=== PATIENT | female | born 1955 | race American Indian/Alaskan Native ===

== ENCOUNTER 2016-12-04 06:37 | Day surgery (SDC) | payer OTHER ==
--- NOTE | 2016-12-04 07:54 | Anesthesia Day of Surgery ---
Anesthesia Day of Surgery - Day of Surgery Patient Examined: Yes Patient H&P Reviewed: Yes Patient is NPO: Yes
--- NOTE | 2016-12-04 07:54 | Anesthesia Consultation ---
Anesthesia Consult and Med Hx Date of service: 12/04/16 - Airway Anesthetic Teeth Evaluation: Good (missing 2 molars on top, 1 on bottom) ROM Head & Neck: Adequate Mental/Hyoid Distance: Adequate Mallampati Class: Class III Intubation Access Assessment: Possibly Difficult - Pulmonary Exam CTA: Yes - Cardiac Exam Cardiac Exam: RRR - Pre-Operative Health Status ASA Pre-Surgery Classification: ASA3 Proposed Anesthetic Plan: MAC - Pulmonary Hx Smoking: Yes (Quit 5 years ago) Hx Asthma: Yes (has cough, states it is from a scratchy throat and that lungs feel fine) COPD: No Hx Pneumonia: No Hx Sleep Apnea: Yes (states diagnosed 3 months ago, never got a cpap/bipap) - Cardiovascular System Hx Hypertension: Yes - Central Nervous System Hx Psychiatric Problems: Yes (schizophrenia) - Gastrointestinal Hx Gastroesophageal Reflux Disease: Yes - Endocrine Hx End Stage Renal Disease: No Hx Non-Insulin Dependent Diabetes: No - Other Systems Hx Alcohol Use: No Hx Substance Use: No Hx Cancer: No Hx Obesity: Yes
[2016-12-04] MEDS ORDERED: NACL 0.9% 1000 ML 1,000 ML IV SCH (08:00)
[2016-12-04] MEDS ORDERED: PROVENTIL IH NR (08:15)
--- NOTE | 2016-12-04 10:00 | Post Anesthesia Evaluation ---
- Post Anesthesia Evaluation Patient Participated: Yes Airway Patent: Yes Stable Respiratory Function: Yes Nausea/Vomiting: No Temp > 96.8F: Yes Pain Manageable: Yes Adequeate Hydration: Yes Anesthesia Complications: No
[2016-12-04] MEDS ORDERED: DIPRIVAN 10 MG/ML IV ONE ×3 (10:49→11:13)
[2016-12-04 11:58] VITALS: BP 137/89
--- NOTE | 2016-12-12 09:42 | Operative Report ---
Operative Report Operative Report: Date of procedure: 12/04/2016 Procedure: Colonoscopy. Attending physician: Cristobal Alberts MD Pipeline Systems Operator: Cristobal Alberts MD Indication: Patient is a 61-year-old female who presents for colorectal cancer screening. A colonoscopy is done to evaluate patient so that treatment may be directed based on the findings. Consent: Informed consent was obtained after advising the patient and family regarding nature of this procedure, its indications, potential benefits as well as possible complications including but not limited to bleeding perforation and adverse reaction to medication, infection as well as other cardiopulmonary complications. An informed written and verbal consent was then obtained after due opportunity was provided for questions and answers. Monitoring: Patient was monitored continuously with pulse oximetry and electrocardiographic recordings as well as blood pressure recordings. Vital signs remained stable throughout this procedure with no untoward events. Preoperative assessment: Patient was assessed immediately prior to this procedure for capacity to tolerate monitored anesthesia care and moderate sedation as well as general anesthesia. Patient's ASA classification is 2, Mallampati class is 2, Hyomental distance is 3. Instrument: Fujinon videocolonoscope Medications: Propofol given intravenously in divided doses. For details please refer to anesthesia records. Description of procedure: Patient was placed in the left lateral decubitus position after achieving sedation, a digital rectal examination was performed following which the colonoscope was introduced into the anal verge and advanced to the cecum which was identified by the cecal valve, the appendiceal orifice, as well as by the cecal strap and direct transillumination. The colonoscope was subsequently withdrawn with careful inspection of all mucosal surfaces. Patient tolerated this procedure well and was subsequently taken to the recovery room. The following findings were noted. Findings: Patient had mild diverticulosis of the sigmoid and the descending colon. The rest of the colon to the cecum was normal. On the retroflex view at the anal verge, patient had internal hemorrhoids. Impression: Internal hemorrhoids, otherwise normal colonoscopy. Plan: High-fiber diet. Repeat colonoscopy in 10 years.
== END 2016-12-04 06:38 | disposition home or self-care (01) ==
LOC: GIO 06:37
PROVIDERS: ATTEND Internal Medicine Gastroenterology
DX: Z12.11 Encounter for screening for malignant neoplasm of colon (principal); K57.30 Diverticulosis of large intestine without perforation or abscess without bleeding; K64.8 Other hemorrhoids; F41.9 Anxiety disorder, unspecified; F32.9 Major depressive disorder, single episode, unspecified; I10 Essential (primary) hypertension; F20.9 Schizophrenia, unspecified; K21.9 Gastro-esophageal reflux disease without esophagitis; G47.33 Obstructive sleep apnea (adult) (pediatric); J45.909 Unspecified asthma, uncomplicated; E66.01 Morbid (severe) obesity due to excess calories; Z68.36 Body mass index [BMI] 36.0-36.9, adult; Z90.710 Acquired absence of both cervix and uterus; Z98.51 Tubal ligation status; Z87.891 Personal history of nicotine dependence; Z79.899 Other long term (current) drug therapy; Z88.0 Allergy status to penicillin; Z91.041 Radiographic dye allergy status
CPT/HCPCS: 45378; J2704; J7030

== ENCOUNTER 2017-03-27 18:18 | Emergency (ER) | payer OTHER ==
[2017-03-27] MEDS ORDERED: MORPHINE IV ONE (20:10)
--- NOTE | 2017-03-27 20:13 | Emergency Department Report ---
Chief Complaint: Chest Pain Stated Complaint: CHEST PAIN Time Seen by Provider: 03/27/17 19:44 - HPI History of Present Illness: Patient is a 61-year-old Egyptian female who has past medical history of approximately 2 months of cough with gagging. Patient has seen her heart doctor personal computer specialist she has a working diagnosis of COPD at this time but is still being evaluated with echocardiograms and and stress tests. Patient's brought her in today because she is having pain with her cough. Patient states that she has coughed daily which is uncontrollable despite meds. Patient has no fever and the cough is nonproductive there is anterior chest pain on palpation. Patient has no nausea vomiting diarrhea - ROS Review of Systems: Review of systems negative except for those systems in the HPI - Exam Vital Signs: Vital Signs 03/27/17 18:29 Temperature 97.6 F Pulse Rate 110 H Respiratory 24 Rate Blood Pressure 142/70 O2 Sat by Pulse 99 Oximetry Physical Exam: Focused physical exam patient is alert and oriented 3 in moderate distress secondary to pain and shortness of breath. HEENT oropharynx is clear sinuses are nontender eyes pupils equal round and reactive to light lungs are clear to auscultation bilaterally however the patient is slightly tachypneic heart S1-S2 no murmurs gallops or rubs mild tachycardia abdomen is soft nontender nondistended neuro exams extremities spontaneously with no sensory deficit no rash or any appearance of rashes that appear like zoster MSE screening note: Focused history and physical exam performed. Due to findings the following was ordered: Had discussion with the patient and her regarding the fact that this is a chronic condition and the diagnosis may not be found here in the emergency department. Patient and her stated they feel as though they have not gotten any answers from doctors. Patient has a working diagnosis was COPD despite the fact she is not wheezing. Patient will undergo troponin and BNP D dimer is basic labs chest x-ray to rule out any emergent condition ED Medical Decision Making - EKG Data When compared to previous EKG there are: other Interpretation: other 03/27/17 20:14 Patient's EKG shows sinus tachycardia 109 normal axis normal intervals no ST segment changes interpretation is there is no STEMI mild tachycardia ED Disposition for MSE Condition: Stable Referrals: NISHI ALICEA MD [Primary Care Provider] - 3-5 Days
[2017-03-27 20:44] LABS: Basophils % (Auto) 0.3 % (0.0-1.8); Eosinophils % (Auto) 0.1 % (0.0-4.3); Hematocrit 37.9 % (30.3-42.9); Hemoglobin 12.3 gm/dl (10.1-14.3); Mean Corpuscular HGB Conc 33 % (30-34); Mean Corpuscular Volume 79 fl (79-97); Platelet Count 278 K/mm3 (140-440); Red Cell Distribution Width 15.7 % (13.2-15.2); White Blood Count 10.1 K/mm3 (4.5-11.0)
[2017-03-27 20:45] LABS: Mean Corpuscular Hemoglobin 26 pg (28-32)
--- NOTE | 2017-03-27 21:12 | XRay Report ---
FINAL REPORT EXAM: XR CHEST ROUTINE 2V HISTORY: Chest Pain TECHNIQUE: Two views of the chest Comparison: 09/13/2016 FINDINGS: Normal heart size. Lungs are clear and well expanded without focal infiltrate or consolidation. There are no discrete pleural effusions. There is mild prominence of the interstitium unchanged from the previous. Imaged axial skeleton is unremarkable. There is mild levoscoliosis thoracic spine. IMPRESSION: No acute cardiopulmonary disease.
[2017-03-27 21:35] LABS: Anion Gap 20 mmol/L; BUN/Creatinine Ratio 12; Blood Urea Nitrogen 13 mg/dL (7-17); Calcium 9.6 mg/dL (8.4-10.2); Carbon Dioxide 24 mmol/L (22-30); Chloride 97.9 mmol/L (98-107); Glucose 104 mg/dL (65-100); Sodium 138 mmol/L (137-145)
--- NOTE | 2017-03-27 21:56 | Emergency Department Report ---
HPI - General Chief Complaint: Chest Pain Time Seen by Provider: 03/27/17 19:44 - HPI HPI: Patient is a 61-year-old Maltese female who has past medical history of approximately 2 months of cough with gagging. 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 Patient's brought her in today because she is having pain with her cough. Patient states that she has coughed daily which is uncontrollable despite meds. Patient has no fever and the cough is nonproductive there is anterior chest pain on palpation. Patient has no nausea vomiting diarrhea. She says she is taking [id number] cough and cold medication without any relief. She reports chest pain with cough and is 4-10. No chest pain without coughing. Patient is on Advair for COPD. She also has rescue inhaler. Pain is located to midsternal area with coughing and feels sore. Patient has no diagnosis of heart disease. She has a history of anxiety and appendectomy. COPD, asthma and arthritis. ED Past Medical Hx - Past Medical History Previous Medical History?: Yes Hx Hypertension: Yes Hx Congestive Heart Failure: No Hx Diabetes: No Hx Arthritis: Yes Hx Headaches / Migraines: Yes Hx Psychiatric Treatment: Yes (anxiety, been at [facility]) Hx Asthma: Yes (has cough, states it is from a scratchy throat and that lungs feel fine) Hx COPD: Yes Hx HIV: No Additional medical history: anxiety - Surgical History Past Surgical History?: Yes Hx Appendectomy: Yes Additional Surgical History: Hysterectomy - Family History Family history: hypertension - Social History Smoking Status: Former Smoker Substance Use Type: None Other Social History: Lives with her - Medications Home Medications: Home Medications Medication Instructions Recorded Confirmed Last Taken Type Hydrochlorothiazide [HCTZ] 25 mg PO QDAY 01/09/14 09/13/16 12/03/16 History Loratadine [Claritin] 10 mg PO QDAY 01/31/14 09/13/16 12/03/16 History Montelukast [Singulair] 10 mg PO QHS #30 tablet 02/04/14 09/13/16 12/03/16 Rx Albuterol Sulfate [Ventolin HFA] 2 puff IH Q4H PRN 01/10/15 09/13/16 01/10/15 14 :40 History Meclizine [Antivert] 50 mg PO BID 01/10/15 09/13/16 12/03/16 History Omeprazole [PriLOSEC] 20 mg PO QDAY 01/10/15 09/13/16 12/03/16 History PARoxetine [Paxil] 20 mg PO DAILY 01/10/15 09/13/16 12/03/16 History Simvastatin [Zocor TAB] 40 mg PO QHS 01/10/15 09/13/16 12/03/16 History Ammonium Lactate/Emu Oil 1 tube PERCUTANEO BID 09/13/16 09/13/16 Unknown History Fluticasone Propionate 1 spray INNOSTRIL DAILY 09/13/16 09/13/16 12/03/16 History Gabapentin 100 mg TID PRN 09/13/16 09/13/16 12/03/16 History Lisinopril [Zestril TAB] 20 mg PO QDAY 09/13/16 09/13/16 12/03/16 History Ciprofloxacin HCl [Ciprofloxacin 500 mg PO Q12HR 3 Days tab 09/14/16 Unknown Rx TAB] Divalproex Dr [Depakote Dr] 500 mg PO BID #1 tablet 09/14/16 12/03/16 Rx Furosemide [Lasix TAB] 20 mg PO QDAY #1 tablet 09/14/16 12/03/16 Rx Nortriptyline [Pamelor] 25 mg PO QDAY #1 capsule 09/14/16 12/03/16 Rx risperiDONE [RisperDAL] 0.5 mg PO BID #1 tablet 09/14/16 12/03/16 Rx ED Review of Systems ROS: Stated complaint: CHEST PAIN Other details as noted in HPI Comment: All other systems reviewed and negative Constitutional: no symptoms reported Eyes: denies: vision change ENT: denies: ear pain, throat pain, congestion Respiratory: cough, shortness of breath, SOB with exertion (shortness of breath only with cough and). denies: orthopnea, SOB at rest, stridor, wheezing Cardiovascular: chest pain (with cough and). denies: palpitations, dyspnea on exertion, orthopnea, edema, syncope, paroxysmal nocturnal dyspnea Gastrointestinal: vomiting (with coughing). denies: abdominal pain, nausea, diarrhea, constipation, hematemesis, melena, hematochezia Genitourinary: denies: dysuria, frequency Musculoskeletal: denies: back pain, joint swelling, arthralgia, myalgia Skin: denies: rash Neurological: denies: headache, weakness, numbness, paresthesias, confusion, abnormal gait, vertigo Physical Exam - Physical Exam Vital Signs: Vital Signs 03/27/17 03/27/17 03/27/17 18:29 20:19 20:49 Temperature 97.6 F Pulse Rate 110 H Respiratory 24 18 18 Rate Blood Pressure 142/70 O2 Sat by Pulse 99 Oximetry Vital Signs 03/27/17 03/27/17 03/27/17 18:29 20:19 20:49 Temperature 97.6 F Pulse Rate 110 H Respiratory 24 18 18 Rate Blood Pressure 142/70 Blood Pressure [Left] O2 Sat by Pulse 99 Oximetry 03/28/17 00:07 Temperature 98.4 F Pulse Rate 87 Respiratory 17 Rate Blood Pressure Blood Pressure 127/84 [Left] O2 Sat by Pulse 97 Oximetry General: This is a 61-year-old female well-nourished well-developed in no acute distress. She is nontoxic in appearance Physical Exam: Head: Normocephalic, atraumatic Eyes: Biateral pupils equal and reactive to light, bilateral EOM intact.. Bilateral conjunctival and sclera without injection, normal accommodation. No nystagmus Neck: Supple, No Cervical adenopathy, full range of motion and no C-spine tenderness. No swelling or tracheal deviation normal reflexes Mouth: Moist, no trismus, no pharyngeal exudate or erythema. Oral airways patent and uvula is midline Ears: Bilateral TM normal exam, bilateral EAC normal exam. Cardiovascular: S1, S2. Tachycardic at 110 ,reg rhythm. No murmur. Capillary refill is less then 3 seconds. Lungs: Clear to auscultate bilaterally. No rhonchi, wheezes or rales. Slightly diminished lung sounds throughout lung anthony suspect from COPD. Positive chest wall tenderness, mid. No chest contusion. No bruising to chest. MSK: Strength 5/5 in all extremities. No joint deformity or crepitus. Normal inspection. Full range of motion to all extremities. A clubbing, cyanosis or edema. +2 pulses to all extremities. No neurovascular compromise. Abdomen: Non-tender to palpate in all quadrants, no guarding or rebound tenderness, positive bowel sounds in all quadrants. No CVA tenderness. No hernia, bruit or mass. No rigidity or distention. Skin: Clean, dry and intact. No rash or lesions. Neurological: GCS at 15, Pt is alert and oriented 3 speech is clear period. No focal neurological deficit . Normal gait. Normal Reflexes. No motor or sensory deficit Back: No vertebral tenderness, no paraspinal tenderness. Full range of motion and normal inspection. Ambulates without any difficulties. Psych: Normal mood and behavior ED Course Vital Signs 03/27/17 03/27/17 03/27/17 18:29 20:19 20:49 Temperature 97.6 F Pulse Rate 110 H Respiratory 24 18 18 Rate Blood Pressure 142/70 O2 Sat by Pulse 99 Oximetry Vital Signs 03/27/17 03/27/17 03/27/17 18:29 20:19 20:49 Temperature 97.6 F Pulse Rate 110 H Respiratory 24 18 18 Rate Blood Pressure 142/70 Blood Pressure [Left] O2 Sat by Pulse 99 Oximetry 03/28/17 00:07 Temperature 98.4 F Pulse Rate 87 Respiratory 17 Rate Blood Pressure Blood Pressure 127/84 [Left] O2 Sat by Pulse 97 Oximetry - Reevaluation(s) Reevaluation #1: 03/27/17 23:10 Patient stable and awaiting in lab, CTA results. Pain control with morphine. She is not having any chest pain at present. Reevaluation #2: 03/28/17 00:14 Patient received morphine 4 mg IV and emergency room. Pain has been stable. ED Medical Decision Making - Lab Data Result diagrams: 03/27/17 20:30 03/27/17 20:30 Lab Results 03/27/17 03/27/17 03/27/17 Range/Units 20:30 20:30 20:30 WBC 10.1 (4.5-11.0) K/mm3 RBC 4.80 (3.65-5.03) M/mm3 Hgb 12.3 (10.1-14.3) gm/dl Hct 37.9 (30.3-42.9) % MCV 79 (79-97) fl MCH 26 L (28-32) pg MCHC 33 (30-34) % RDW 15.7 H (13.2-15.2) % Plt Count 278 (140-440) K/mm3 Lymph % (Auto) 19.9 (13.4-35.0) % [place] % (Auto) 7.9 H (0.0-7.3) % Eos % (Auto) 0.1 (0.0-4.3) % Baso % (Auto) 0.3 (0.0-1.8) % Lymph # 2.0 (1.2-5.4) K/mm3 [place] # 0.8 (0.0-0.8) K/mm3 Eos # 0.0 (0.0-0.4) K/mm3 Baso # 0.0 (0.0-0.1) K/mm3 Seg Neutrophils % 71.8 H (40.0-70.0) % Seg Neutrophils # 7.3 (1.8-7.7) K/mm3 D-Dimer 720.04 H (0-234) ng/mlDDU Sodium 138 (137-145) mmol/L Potassium 4.0 (3.6-5.0) mmol/L Chloride 97.9 L (98-107) mmol/L Carbon Dioxide 24 (22-30) mmol/L Anion Gap 20 mmol/L BUN 13 (7-17) mg/dL Creatinine 1.1 (0.7-1.2) mg/dL Estimated GFR > 60 ml/min BUN/Creatinine Ratio 12 % Glucose 104 H (65-100) mg/dL Calcium 9.6 (8.4-10.2) mg/dL Troponin T < 0.010 (0.00-0.029) ng/mL NT-Pro-B Natriuret Pep (0-900) pg/mL 03/27/ Range/Units 20:30 WBC (4.5-11.0) K/mm3 RBC (3.65-5.03) M/mm3 Hgb (10.1-14.3) gm/dl Hct (30.3-42.9) % MCV (79-97) fl MCH (28-32) pg MCHC (30-34) % RDW (13.2-15.2) % Plt Count (140-440) K/mm3 Lymph % (Auto) (13.4-35.0) % [place] % (Auto) (0.0-7.3) % Eos % (Auto) (0.0-4.3) % Baso % (Auto) (0.0-1.8) % Lymph # (1.2-5.4) K/mm3 [place] # (0.0-0.8) K/mm3 Eos # (0.0-0.4) K/mm3 Baso # (0.0-0.1) K/mm3 Seg Neutrophils % (40.0-70.0) % Seg Neutrophils # (1.8-7.7) K/mm3 D-Dimer (0-234) ng/mlDDU Sodium (137-145) mmol/L Potassium (3.6-5.0) mmol/L Chloride (98-107) mmol/L Carbon Dioxide (22-30) mmol/L Anion Gap mmol/L BUN (7-17) mg/dL Creatinine (0.7-1.2) mg/dL Estimated GFR ml/min BUN/Creatinine Ratio % Glucose (65-100) mg/dL Calcium (8.4-10.2) mg/dL Troponin T (0.00-0.029) ng/mL NT-Pro-B Natriuret Pep 58.84 (0-900) pg/mL - EKG Data -: EKG Interpreted by Me (read by attending physician) EKG shows normal: sinus rhythm (sinus tachycardia 109) Rate: tachycardia - EKG Data Interpretation: no acute changes - Radiology Data Radiology results: report reviewed X-ray reveals no acute cardiopulmonary findings A CTA and she'll of chest reveals no pulmonary embolism. Patient with nodule in the lower left lobe of the thyroid. inferiorly. Outpatient ultrasounds recommended. - Medical Decision Making Course: Pt brought her to the emergency room report that she's been having in upper respiratory symptoms this worsening today. Report patient with shortness of breath and midsternal chest pain with coughing. Patient said that she has been worked up in diagnoses COPD and she is on albuterol and Advair. She is also saying that she is currently being worked up for cardiac related problems. Patient lab work reflective elevated d-dimer therefore CTA Chest was done which was negative for pulmonary embolism and incidental findings for thyroid nodule and patient will be referred back to her primary care for outpatient thyroid ultrasound. BNP and troponin normal levels. Patient's BMP and CBC stable. Chest x-ray revealed no acute cardiopulmonary findings. Please refer to radiology section on chart, lab section for complete results. Patient with reproducible chest wall pain and she was given morphine 4 mg IV which relieved her pain. Patient and her family given information on lab results, CTA of the chest resolved, chest x-ray and findings for thyroid nodule. I explained to her in detail that she'll need to follow up with her primary care physician, watch manufacturing supervisor and also continue outpatient cardiac workup for chronic chest pain. She was understands discharge diagnosis and treatment plan and discharged home with her in stable condition with prescription to continue with her current treatment or COPD and to follow up with her primary care in 3 days. Instructed Call her etcher enameling and watch manufacturing supervisor for follow-up appointment. Pt is currently being followed by cardiology and pulmonology. Critical care attestation.: If time is entered above; I have spent that time in minutes in the direct care of this critically ill patient, excluding procedure time. ED Disposition Clinical Impression: Thyroid nodule, Atypical chest pain, Cough in adult patient, Shortness of breath, Upper respiratory infection, acute COPD (chronic obstructive pulmonary disease) Qualifiers: COPD type: unspecified COPD Qualified Code(s): J44.9 - Chronic obstructive pulmonary disease, unspecified Disposition: DC-01 TO HOME OR SELFCARE Is pt being admited?: No Does the pt Need Aspirin: No Condition: Stable Instructions: Chest Pain (ED), Chronic Obstructive Pulmonary Disease (ED), Thyroid Nodules (ED), Upper Respiratory Infection (ED) Additional Instructions: Please follow-up with your primary care physician in 3 days Please follow up with a watch manufacturing supervisor and your etcher enameling for continued management of COPD and also cardiac workup. Your CT scan with incidental findings for thyroid nodule. You will need to follow up with your primary care physician who will need to order ultrasound of thyroid glands for further evaluation and treatment Increasing her fluid intake Rest for the next 3 days She did take Zyrtec to help to relieve postnasal drip Referrals: your, PCP [Other] - 3-5 Days ( primary care will need to order outpatient ultrasound a few thyroid gland) your, watch manufacturing supervisor [Other] - 3-5 Days (Management of COPD, chronic cough.) your, etcher enameling [Other] - 3-5 Days (Management of atypical chest pain) [facility] [Provider Group] - 3-5 Days Forms: Accompanied Note
--- NOTE | 2017-03-27 23:30 | Cat Scan Report ---
FINAL REPORT EXAM: CT ANGIO CHEST HISTORY: elevated D-dimer r/o PE TECHNIQUE: Enhanced CT of the chest at 2.5 mm axial intervals following a pulmonary embolism protocol. Coronal and sagittal imaging were also obtained. Coronal oblique MIP projections were obtained. Contrast: 75 ml of Isovue 300 given IV. PRIORS: None. FINDINGS: Within the neck, there is a nodule extending off the lower pole of the left thyroid lobe measuring 1.9 x 2.5 x 3.1 cm (axial image 9). Findings should be further evaluated with ultrasound. There is no evidence for pulmonary embolism in the main pulmonary artery, right and left pulmonary arteries or their major distributions. However, CT does not exclude distal pulmonary emboli. Otherwise, the lung parenchyma are expanded and clear with no evidence for parenchymal nodules, infiltrates, congestion, or pleural effusion. There is no evidence for mediastinal, hilar, or axillary adenopathy. Cardiovascular structures are within normal limits. No evidence for ventricular chamber enlargement is seen. Images through the lung bases include the upper abdomen which show no abnormalities of the visualized abdominal viscera. Moderate stool is present throughout the transverse colon. Dot innate in the splenic uptake is likely due to bolus timing. Bony structures demonstrate no focal abnormalities. Degenerative disc changes throughout the thoracic spine are seen. IMPRESSION: 1. no evidence for pulmonary embolism. 2. Nodule in the lower left lobe of the thyroid. The inferiorly. Ultrasound is recommended.
[2017-03-28 00:08] VITALS: BP 127/84
== END 2017-03-28 00:43 | disposition home or self-care (01) ==
LOC: ED 18:18
DX: J44.9 Chronic obstructive pulmonary disease, unspecified (principal); E04.1 Nontoxic single thyroid nodule; R07.89 Other chest pain; J06.9 Acute upper respiratory infection, unspecified; R06.02 Shortness of breath; I10 Essential (primary) hypertension; G43.909 Migraine, unspecified, not intractable, without status migrainosus
CPT/HCPCS: 36415; 71020; 71275; 80048; 83880; 84484; 85025; 85379; 93005; 93010; 96374; 99284; J2270; Q9967

== ENCOUNTER 2017-05-28 11:11 | Day surgery (SDC) | payer OTHER ==
[2017-05-28] MEDS ORDERED: NACL 0.9% 1000 ML 1,000 ML IV SCH (14:00)
== END 2017-05-28 11:12 | disposition home or self-care (01) ==
LOC: GIO 11:11
PROVIDERS: ATTEND Internal Medicine Gastroenterology
DX: R10.13 Epigastric pain (principal)

== ENCOUNTER 2017-06-11 08:06 | Outpatient (CLI) | payer OTHER ==
--- NOTE | 2017-06-11 16:27 | Ultrasound Report ---
FINAL REPORT PROCEDURE: US THRYROID SCAN TECHNIQUE: Focused real-time sonography in multiple planes of the thyroid gland was performed with image documentation. CPT 11960 HISTORY: Left thyroid nodule. COMPARISON: CTA of the chest dated 03/27/2017, images including the thyroid gland. FINDINGS: The right lobe of the thyroid gland measures 3.9 x 1.2 x 1.4 cm. Heterogeneous echotexture. The left lobe of the thyroid gland measures 4.5 x 2.3 x 1.4 cm. Heterogeneous echotexture. In the mid left thyroid gland there is a slightly heterogeneous 1.6 x 1.4 x 1.5 cm nodule. In the inferior left thyroid gland there is a 2.4 x 2.2 x 1.7 cm slightly heterogeneous nodule. Isthmus measures 3 mm. IMPRESSION: Slightly heterogeneous left thyroid nodules. These are felt to correspond to CT finding. Overall thyroid echotexture is somewhat heterogeneous. Consider multinodular goiter. However, consider further evaluation including FNA if there is concern for underlying neoplastic etiology. Nuclear medicine examination may also be helpful for further characterization of thyroid nodules and/or thyroid uptake.
== END 2017-06-11 08:07 | disposition home or self-care (01) ==
LOC: US 08:06
PROVIDERS: ATTEND Family Medicine
DX: E04.1 Nontoxic single thyroid nodule (principal)
CPT/HCPCS: 76536

== ENCOUNTER 2018-01-15 08:53 | Outpatient (CLI) | payer OTHER ==
--- NOTE | 2018-01-15 12:41 | Mammography Report ---
BILATERAL MAMMOGRAM: FINDINGS: The breast tissue is heterogeneously dense, which could obscure detection of small masses (approximately 50%-75% glandular). No mass, distortion, suspicious calcification, or skin change is seen. CAD was utilized. IMPRESSION: Negative mammogram. There is no mammographic evidence of malignancy. RECOMMENDATION: Follow-up per ACS guidelines. BI-RADS CATEGORY: 1 = Negative ACR BI-RADS MAMMOGRAPHIC CODES: 0 = Needs additional imaging evaluation; 1 = Negative; 2 = Benign; 3 = Probably benign; 4 = Suspicious; 5 = Malignant; 6 = Known biopsy-proven malignancy COMMENT: 1. Dense breast tissue, i.e., adenosis, fibrocystic changes, etc., may obscure an underlying neoplasm. 2. Approximately 10% of cancers are not detected with mammography. 3. A negative mammography report should not delay biopsy if a clinically suspicious mass is present. COMMENT: Patient follow-up letters are generated in [place].
== END 2018-01-15 08:54 | disposition home or self-care (01) ==
LOC: MAMMO 08:53
PROVIDERS: ATTEND Family Medicine
DX: Z12.31 Encounter for screening mammogram for malignant neoplasm of breast (principal); I10 Essential (primary) hypertension; E78.5 Hyperlipidemia, unspecified; G43.909 Migraine, unspecified, not intractable, without status migrainosus; E78.00 Pure hypercholesterolemia, unspecified; J44.9 Chronic obstructive pulmonary disease, unspecified; M19.90 Unspecified osteoarthritis, unspecified site; E66.9 Obesity, unspecified; Z90.49 Acquired absence of other specified parts of digestive tract; Z90.710 Acquired absence of both cervix and uterus; Z87.891 Personal history of nicotine dependence
CPT/HCPCS: 77067

== ENCOUNTER 2019-12-27 21:12 | Emergency (ER) | payer MEDICARE, OTHER ==
[2019-12-27] MEDS ORDERED: ASPIRIN 325 MG TAB PO ONE (21:29)
--- NOTE | 2019-12-27 21:55 | XRay Report ---
CHEST 1 VIEW 12/27/2019 9:53 PM INDICATION / CLINICAL INFORMATION: Chest Pain. COMPARISON: 09/13/2016. FINDINGS: SUPPORT DEVICES: None. HEART / MEDIASTINUM: No significant abnormality. LUNGS / PLEURA: No significant pulmonary or pleural abnormality. No pneumothorax. ADDITIONAL FINDINGS: No significant additional findings. IMPRESSION: No acute cardiopulmonary abnormality. Signer Name: Eugene Daley MD Signed: 12/27/2019 9:51 PM Workstation Name: [id number]
[2019-12-27 22:24] LABS: Basophils # (Auto) 0.1 K/mm3 (0.0-0.1); Basophils % (Auto) 0.7 % (0.0-1.8); Eosinophils # (Auto) 0.3 K/mm3 (0.0-0.4); Eosinophils % (Auto) 3.1 % (0.0-4.3); Hematocrit 36.6 % (30.3-42.9); Lymphocytes # (Auto) 2.8 K/mm3 (1.2-5.4); Mean Corpuscular HGB Conc 33 % (30-34); Mean Corpuscular Volume 79 fl (79-97); Monocytes # (Auto) 0.6 K/mm3 (0.0-0.8); Monocytes % (Auto) 7.4 % (0.0-7.3); Platelet Count 314 K/mm3 (140-440); Red Blood Count 4.61 M/mm3 (3.65-5.03); Red Cell Distribution Width 16.1 % (13.2-15.2)
[2019-12-27 22:29] LABS: BUN/Creatinine Ratio 10; Blood Urea Nitrogen 11 mg/dL (7-17); Calcium 9.3 mg/dL (8.4-10.2); Hemolysis Index 6
[2019-12-27] MEDS ORDERED: PANTOPRAZOLE 40 MG INJ IV ONE (22:39)
[2019-12-27] MEDS ORDERED: LORazepam 1 MG TAB PO ONE (22:39)
[2019-12-27] MEDS ORDERED: ACETAMINOPHEN 500 MG TAB PO ONE (22:39)
[2019-12-27] MEDS ORDERED: ALUM-MAG HYDROXIDE-SIMETHICONE 200-200-20MG/5ML ORAL LIQD 30 ML PO ONE (22:39)
[2019-12-27] MEDS ORDERED: dexAMETHasone 20 MG/5 ML VIAL IV ONE (22:41)
[2019-12-27] MEDS ORDERED: IPRATROPIUM/ALBUTEROL SULFATE 3 ML AMPUL.NEB IH ONE (22:41)
--- NOTE | 2019-12-27 22:44 | Emergency Department Report ---
ED Chest Pain HPI - General Chief Complaint: Chest Pain Stated Complaint: CHEST PAIN Time Seen by Provider: 12/27/19 22:25 Source: patient Mode of arrival: Ambulatory Limitations: No Limitations - History of Present Illness Initial Comments: Chief complaint: "I know that it is not my heart Because I looked up the symptoms on the Internet." HPI this is a 64-year-old female with history of migraine headache, hypertension, hyperlipidemia who presents with sharp central chest pain for several days. Mild to moderate. No radiation. No previous history of heart disease. According to electronic medical record, patient underwent left heart catheteriza tion. There was no evidence of coronary artery disease. LV systolic performance ejection fraction 55 to 60%. The procedure took place January 2014 Complaint: chest pain -: Gradual, days(s) (2-3 days) Onset: during exertion Pain Location: substernal Pain Radiation: none Severity: moderate Severity scale (0 -10): 7 Quality: sharp Consistency: constant Improves With: nothing Worsens With: other (Upright position) Other Symptoms: denies: cough, fever - Related Data Home Medications Medication Instructions Recorded Confirmed Last Taken hydroCHLOROthiazide [HCTZ] 25 mg PO QDAY 01/09/14 09/13/16 12/03/16 Loratadine (Nf) [Claritin (Nf)] 10 mg PO QDAY 01/31/14 09/13/16 12/03/16 Albuterol Sulfate [Ventolin HFA] 2 puff IH Q4H PRN 01/10/15 09/13/16 01/10/15 14:40 Meclizine [Antivert] 50 mg PO BID 01/10/15 09/13/16 12/03/16 Omeprazole [PriLOSEC] 20 mg PO QDAY 01/10/15 09/13/16 12/03/16 PARoxetine [Paxil] 20 mg PO DAILY 01/10/15 09/13/16 12/03/16 Simvastatin (Nf) [Zocor TAB] 40 mg PO QHS 01/10/15 09/13/16 12/03/16 Ammonium Lactate/Emu Oil 1 tube PERCUTANEO BID 09/13/16 09/13/16 Unknown Fluticasone Propionate 1 spray INNOSTRIL DAILY 09/13/16 09/13/16 12/03/16 Gabapentin 100 mg TID PRN 09/13/16 09/13/16 12/03/16 lisinopriL [Zestril TAB] 20 mg PO QDAY 09/13/16 09/13/16 12/03/16 Previous Rx's Medication Instructions Recorded Last Taken Type Montelukast [Singulair] 10 mg PO QHS #30 tablet 02/04/14 12/03/16 Rx Ciprofloxacin HCl [Ciprofloxacin 500 mg PO Q12HR 3 Days tab 09/14/16 Unknown Rx TAB] Divalproex Dr [Depakote Dr] 500 mg PO BID #1 tablet 09/14/16 12/03/16 Rx Furosemide [Lasix TAB] 20 mg PO QDAY #1 tablet 09/14/16 12/03/16 Rx Nortriptyline [Pamelor] 25 mg PO QDAY #1 capsule 09/14/16 12/03/16 Rx risperiDONE [RisperDAL] 0.5 mg PO BID #1 tablet 09/14/16 12/03/16 Rx Allergies Allergy/AdvReac Type Severity Reaction Status Date / Time Penicillins Allergy Mild Unknown Verified 01/31/14 14:17 propoxyphene Allergy NAUSEA,VOMI Unverified 06/11/17 08:16 TING Heart Score - HEART Score History: Slightly suspicious EKG: Normal Age: 45-65 Risk factors: > 3 risk factors or hx of atherosclerotic disease Troponin: < normal limit HEART Score: 3 ED Review of Systems ROS: Stated complaint: CHEST PAIN Other details as noted in HPI Comment: All other systems reviewed and negative Constitutional: denies: fever, malaise Respiratory: shortness of breath. denies: cough Cardiovascular: chest pain ED Past Medical Hx - Past Medical History Previous Medical History?: Yes Hx Hypertension: Yes Hx Congestive Heart Failure: No Hx Diabetes: No Hx Arthritis: Yes Hx Headaches / Migraines: Yes Hx Psychiatric Treatment: Yes (Anxiety, Bipolar, Schizophrenia, Panic Attacks) Hx Asthma: Yes (has cough, states it is from a scratchy throat and that lungs feel fine) Hx COPD: Yes Hx HIV: No Additional medical history: anxiety - Surgical History Past Surgical History?: Yes Hx Appendectomy: Yes Additional Surgical History: Hysterectomy - Social History Smoking Status: Never Smoker Substance Use Type: None - Medications Home Medications: Home Medications Medication Instructions Recorded Confirmed Last Taken Type hydroCHLOROthiazide [HCTZ] 25 mg PO QDAY 01/09/14 09/13/16 12/03/16 History Loratadine (Nf) [Claritin (Nf)] 10 mg PO QDAY 01/31/14 09/13/16 12/03/16 History Montelukast [Singulair] 10 mg PO QHS #30 tablet 02/04/14 09/13/16 12/03/16 Rx Albuterol Sulfate [Ventolin HFA] 2 puff IH Q4H PRN 01/10/15 09/13/16 01/10/15 14:40 History Meclizine [Antivert] 50 mg PO BID 01/10/15 09/13/16 12/03/16 History Omeprazole [PriLOSEC] 20 mg PO QDAY 01/10/15 09/13/16 12/03/16 History PARoxetine [Paxil] 20 mg PO DAILY 01/10/15 09/13/16 12/03/16 History Simvastatin (Nf) [Zocor TAB] 40 mg PO QHS 01/10/15 09/13/16 12/03/16 History Ammonium Lactate/Emu Oil 1 tube PERCUTANEO BID 09/13/16 09/13/16 Unknown History Fluticasone Propionate 1 spray INNOSTRIL DAILY 09/13/16 09/13/16 12/03/16 History Gabapentin 100 mg TID PRN 09/13/16 09/13/16 12/03/16 History lisinopriL [Zestril TAB] 20 mg PO QDAY 09/13/16 09/13/16 12/03/16 History Ciprofloxacin HCl [Ciprofloxacin 500 mg PO Q12HR 3 Days tab 09/14/16 Unknown Rx TAB] Divalproex Dr [Depsuma Dr] 500 mg PO BID #1 tablet 09/14/16 12/03/16 Rx Furosemide [Lasix TAB] 20 mg PO QDAY #1 tablet 09/14/16 12/03/16 Rx Nortriptyline [Pamelor] 25 mg PO QDAY #1 capsule 09/14/16 12/03/16 Rx risperiDONE [RisperDAL] 0.5 mg PO BID #1 tablet 09/14/16 12/03/16 Rx ED Physical Exam - General Limitations: No Limitations General appearance: alert, in no apparent distress, anxious, other (Patient is speaking full word sentences while hyperventilating) - Head Head exam: Present: atraumatic, normocephalic - Eye Eye exam: Present: normal appearance - ENT ENT exam: Present: mucous membranes moist - Neck Neck exam: Present: normal inspection, full ROM - Respiratory Respiratory exam: Present: normal lung sounds bilaterally. Absent: respiratory distress, wheezes, rales, rhonchi - Cardiovascular Cardiovascular Exam: Present: regular rate, normal rhythm, normal heart sounds. Absent: systolic murmur, diastolic murmur, rubs, gallop - GI/Abdominal GI/Abdominal exam: Present: soft, normal bowel sounds. Absent: distended, tenderness, guarding, rebound - Extremities Exam Extremities exam: Present: normal inspection - Back Exam Back exam: Present: normal inspection - Neurological Exam Neurological exam: Present: alert, oriented X3 - Psychiatric Psychiatric exam: Present: normal affect, anxious - Skin Skin exam: Present: warm, dry, intact, normal color. Absent: rash ED Course Vital Signs 12/27/19 12/27/19 12/27/19 21:24 22:27 22:30 Temperature 98.0 F Pulse Rate 105 H 88 Respiratory 18 25 H Rate Blood Pressure 128/87 114/79 O2 Sat by Pulse 98 96 97 Oximetry 12/27/19 12/27/19 12/27/19 22:45 23:00 23:15 Temperature Pulse Rate 84 87 82 Respiratory 31 H 19 17 Rate Blood Pressure 124/88 124/88 118/79 O2 Sat by Pulse 96 97 95 Oximetry 12/27/19 12/27/19 12/27/19 23:30 23:45 23:58 Temperature Pulse Rate 82 84 86 Respiratory 23 24 25 H Rate Blood Pressure 118/79 142/84 142/84 O2 Sat by Pulse 94 92 96 Oximetry 12/28/19 12/28/19 00:00 00:15 Temperature Pulse Rate 84 86 Respiratory 24 22 Rate Blood Pressure 146/90 134/85 O2 Sat by Pulse 95 92 Oximetry ED Medical Decision Making - Lab Data Result diagrams: 12/27/19 21:50 12/27/19 21:50 - EKG Data -: EKG Interpreted by [facility] EKG shows normal: sinus rhythm, axis, intervals, QRS complexes, ST-T waves Rate: normal - EKG Data Interpretation: normal EKG - Radiology Data Radiology results: report reviewed Chest radiographno acute findings according to radiology impression CT angio chest INDICATION / CLINICAL INFORMATION: P.E. PROTOCOL!!! Chest pain with elevated D-dimer. TECHNIQUE: Axial CT images were obtained after injection of Omnipaque 350, 100 cc IV contrast using CTA protocol. 3 plane MIP / 3D reconstructions were produced. All CT scans at this location are performed using CT dose reduction for ALARA by means of automated exposure control. COMPARISON: None available. FINDINGS: The lungs contain no mass, infiltrate or pleural fluid. Mild basilar atelectasis is present. Negative for mediastinal mass or adenopathy. No aneurysm, dissection or pulmonary embolus. Imaging of the upper abdomen is unremarkable. IMPRESSION: Negative for pulmonary embolus or pneumonia. - Medical Decision Making Mrs. Ramirez presents for chest radiograph for ACS. Pulmonary embolism ruled out with CT angiogram. I suspect a component of asthma and anxiety. Patient received IV dexamethasone, PO antacid, acetaminophen, Ativan and IV Protonix which did improve symptoms. Patient also received DuoNeb. Patient given reassurance. Patient is discharged home Heart score 3. Referral request faxed to [facility] Critical care attestation.: If time is entered above; I have spent that time in minutes in the direct care of this critically ill patient, excluding procedure time. ED Disposition Clinical Impression: Asthma exacerbation, Chest pain Disposition: DC-01 TO HOME OR SELFCARE Is pt being admited?: No Does the pt Need Aspirin: No Condition: Stable Instructions: Chest Pain (ED) Referrals: COURTNEY LOPEZ MD [Staff Physician] - 3-5 Days
[2019-12-28 00:55] VITALS: BP 134/85
--- NOTE | 2019-12-28 01:05 | Cat Scan Report ---
CT angio chest INDICATION / CLINICAL INFORMATION: P.E. PROTOCOL!!! Chest pain with elevated D-dimer. TECHNIQUE: Axial CT images were obtained after injection of Omnipaque 350, 100 cc IV contrast using CTA protocol . 3 plane MIP / 3D reconstructions were produced. All CT scans at this location are performed using C T dose reduction for ALARA by means of automated exposure control. COMPARISON: None available. FINDINGS: The lungs contain no mass, infiltrate or pleural fluid. Mild basilar atelectasis is present. Negative for mediastinal mass or adenopathy. No aneurysm, dissection or pulmonary embolus. Imaging of the upper abdomen is unremarkable. IMPRESSION: Negative for pulmonary embolus or pneumonia. Signer Name: Stefano Chicas MD Signed: 12/28/2019 1:01 AM Workstation Name: [id number]
== END 2019-12-28 01:26 | disposition home or self-care (01) ==
LOC: ED 21:12
DX: J45.901 Unspecified asthma with (acute) exacerbation (principal); R07.9 Chest pain, unspecified; I10 Essential (primary) hypertension; M19.90 Unspecified osteoarthritis, unspecified site; G43.909 Migraine, unspecified, not intractable, without status migrainosus; F41.9 Anxiety disorder, unspecified; F25.0 Schizoaffective disorder, bipolar type; Z90.49 Acquired absence of other specified parts of digestive tract; Z90.710 Acquired absence of both cervix and uterus; Z88.0 Allergy status to penicillin; Z88.8 Allergy status to other drugs, medicaments and biological substances; Z79.899 Other long term (current) drug therapy
CPT/HCPCS: 36415; 71045; 71275; 80048; 84484; 85025; 85379; 93005; 94640; 96374; 96375; 99285; C9113; J1100; Q9967; 94644

== ENCOUNTER 2019-12-30 12:30 | Emergency (ER) | payer MEDICARE ==
[2019-12-30] MEDS ORDERED: ASPIRIN 325 MG TAB PO ONE (12:38)
--- NOTE | 2019-12-30 13:18 | XRay Report ---
CHEST PA AND LATERAL VIEWS INDICATION: Chest Pain. COMPARISON: 3 days prior FINDINGS: Support devices: None. Heart: Within normal limits. Lungs/Pleura: No acute pulmonary or pleural findings. IMPRESSION: 1. No acute findings. Signer Name: Mian Collado MD Signed: 12/30/2019 1:14 PM Workstation Name: [id number]
[2019-12-30 13:51] LABS: Basophils % (Auto) 0.3 % (0.0-1.8); Eosinophils # (Auto) 0.1 K/mm3 (0.0-0.4); Eosinophils % (Auto) 1.1 % (0.0-4.3); Hematocrit 35.1 % (30.3-42.9); Hemoglobin 11.5 gm/dl (10.1-14.3); Lymphocytes # (Auto) 3.5 K/mm3 (1.2-5.4); Lymphocytes % (Auto) 33.5 % (13.4-35.0); Mean Corpuscular HGB Conc 33 % (30-34); Mean Corpuscular Volume 80 fl (79-97); Monocytes # (Auto) 0.9 K/mm3 (0.0-0.8); Monocytes % (Auto) 8.7 % (0.0-7.3); Platelet Count 283 K/mm3 (140-440); Red Blood Count 4.37 M/mm3 (3.65-5.03); Red Cell Distribution Width 16.5 % (13.2-15.2)
[2019-12-30 14:13] LABS: BUN/Creatinine Ratio 13; Blood Urea Nitrogen 16 mg/dL (7-17); Calcium 8.5 mg/dL (8.4-10.2); Hemolysis Index 4
[2019-12-30] MEDS ORDERED: POTASSIUM CHLORIDE ER 20 MEQ TAB PO ONE (17:35)
[2019-12-30] MEDS ORDERED: FAMOTIDINE 20 MG TAB PO ONE (17:44)
--- NOTE | 2019-12-30 17:47 | Emergency Department Report ---
ED Chest Pain HPI - General Chief Complaint: Chest Pain Stated Complaint: CHEST PAIN PUI?: No Time Seen by Provider: 12/30/19 17:34 Source: patient Mode of arrival: Wheelchair Limitations: No Limitations - History of Present Illness Initial Comments: Patient is a 64-year-old F Thai female who is complaining of intermittent c hest discomfort in the center chest for the past day. Patient states the pain is worse with eating. Patient states for the past 3 months she has had discomfort off and on but it worsened over the last 24 hours. Patient is taking antibiotics for tooth infection. Patient states that the pain is a pressure- like sensation starts in the epigastrium radiates to the center chest that last for approximately 10 seconds at a time and then resolves. - Related Data Home Medications Medication Instructions Recorded Confirmed Last Taken hydroCHLOROthiazide [HCTZ] 25 mg PO QDAY 01/09/14 09/13/16 12/03/16 Loratadine (Nf) [Claritin (Nf)] 10 mg PO QDAY 01/31/14 09/13/16 12/03/16 Albuterol Sulfate [Ventolin HFA] 2 puff IH Q4H PRN 01/10/15 09/13/16 01/10/15 14:40 Meclizine [Antivert] 50 mg PO BID 01/10/15 09/13/16 12/03/16 Omeprazole [PriLOSEC] 20 mg PO QDAY 01/10/15 09/13/16 12/03/16 PARoxetine [Paxil] 20 mg PO DAILY 01/10/15 09/13/16 12/03/16 Simvastatin (Nf) [Zocor TAB] 40 mg PO QHS 01/10/15 09/13/16 12/03/16 Ammonium Lactate/Emu Oil 1 tube PERCUTANEO BID 09/13/16 09/13/16 Unknown Fluticasone Propionate 1 spray INNOSTRIL DAILY 09/13/16 09/13/16 12/03/16 Gabapentin 100 mg TID PRN 09/13/16 09/13/16 12/03/16 lisinopriL [Zestril TAB] 20 mg PO QDAY 09/13/16 09/13/16 12/03/16 Previous Rx's Medication Instructions Recorded Last Taken Type Montelukast [Singulair] 10 mg PO QHS #30 tablet 02/04/14 12/03/16 Rx Ciprofloxacin HCl [Ciprofloxacin 500 mg PO Q12HR 3 Days tab 09/14/16 Unknown Rx TAB] Divalproex Dr [Depsuma Dr] 500 mg PO BID #1 tablet 09/14/16 12/03/16 Rx Furosemide [Lasix TAB] 20 mg PO QDAY #1 tablet 09/14/16 12/03/16 Rx Nortriptyline [Pamelor] 25 mg PO QDAY #1 capsule 09/14/16 12/03/16 Rx risperiDONE [RisperDAL] 0.5 mg PO BID #1 tablet 09/14/16 12/03/16 Rx Famotidine [Pepcid] 40 mg PO QHS #10 tablet 12/30/19 Unknown Rx Pantoprazole [Protonix] 40 mg PO QDAY #30 tablet 12/30/19 Unknown Rx Allergies Allergy/AdvReac Type Severity Reaction Status Date / Time Penicillins Allergy Mild Unknown Verified 01/31/14 14:17 propoxyphene Allergy NAUSEA,VOMI Unverified 06/11/17 08:16 TING Heart Score - HEART Score History: Slightly suspicious EKG: Normal Age: 45-65 Risk factors: 1-2 risk factors Troponin: < normal limit HEART Score: 2 ED Review of Systems ROS: Stated complaint: CHEST PAIN Other details as noted in HPI Comment: All other systems reviewed and negative ED Past Medical Hx - Past Medical History Hx Hypertension: Yes Hx Congestive Heart Failure: No Hx Diabetes: No Hx Arthritis: Yes Hx Headaches / Migraines: Yes Hx Psychiatric Treatment: Yes (Anxiety, Bipolar, Schizophrenia, Panic Attacks) Hx Asthma: Yes (has cough, states it is from a scratchy throat and that lungs feel fine) Hx COPD: Yes Hx HIV: No Additional medical history: anxiety - Surgical History Hx Appendectomy: Yes Additional Surgical History: Hysterectomy - Social History Smoking Status: Former Smoker Substance Use Type: None - Medications Home Medications: Home Medications Medication Instructions Recorded Confirmed Last Taken Type hydroCHLOROthiazide [HCTZ] 25 mg PO QDAY 01/09/14 09/13/16 12/03/16 History Loratadine (Nf) [Claritin (Nf)] 10 mg PO QDAY 01/31/14 09/13/16 12/03/16 History Montelukast [Singulair] 10 mg PO QHS #30 tablet 02/04/14 09/13/16 12/03/16 Rx Albuterol Sulfate [Ventolin HFA] 2 puff IH Q4H PRN 01/10/15 09/13/16 01/10/15 14:40 History Meclizine [Antivert] 50 mg PO BID 01/10/15 09/13/16 12/03/16 History Omeprazole [PriLOSEC] 20 mg PO QDAY 01/10/15 09/13/16 12/03/16 History PARoxetine [Paxil] 20 mg PO DAILY 01/10/15 09/13/16 12/03/16 History Simvastatin (Nf) [Zocor TAB] 40 mg PO QHS 01/10/15 09/13/16 12/03/16 History Ammonium Lactate/Emu Oil 1 tube PERCUTANEO BID 09/13/16 09/13/16 Unknown History Fluticasone Propionate 1 spray INNOSTRIL DAILY 09/13/16 09/13/16 12/03/16 History Gabapentin 100 mg TID PRN 09/13/16 09/13/16 12/03/16 History lisinopriL [Zestril TAB] 20 mg PO QDAY 09/13/16 09/13/16 12/03/16 History Ciprofloxacin HCl [Ciprofloxacin 500 mg PO Q12HR 3 Days tab 09/14/16 Unknown Rx TAB] Divalproex Dr [Depakote Dr] 500 mg PO BID #1 tablet 09/14/16 12/03/16 Rx Furosemide [Lasix TAB] 20 mg PO QDAY #1 tablet 09/14/16 12/03/16 Rx Nortriptyline [Pamelor] 25 mg PO QDAY #1 capsule 09/14/16 12/03/16 Rx risperiDONE [RisperDAL] 0.5 mg PO BID #1 tablet 09/14/16 12/03/16 Rx Famotidine [Pepcid] 40 mg PO QHS #10 tablet 12/30/19 Unknown Rx Pantoprazole [Protonix] 40 mg PO QDAY #30 tablet 12/30/19 Unknown Rx ED Physical Exam - General Limitations: No Limitations General appearance: alert, in no apparent distress - Head Head exam: Present: atraumatic, normocephalic - Eye Eye exam: Present: normal appearance - ENT ENT exam: Present: mucous membranes moist - Neck Neck exam: Present: normal inspection - Respiratory Respiratory exam: Present: normal lung sounds bilaterally. Absent: respiratory distress, wheezes, rales, rhonchi - Cardiovascular Cardiovascular Exam: Present: regular rate, normal rhythm, normal heart sounds. Absent: systolic murmur, diastolic murmur, rubs, gallop - GI/Abdominal GI/Abdominal exam: Present: soft, normal bowel sounds. Absent: distended, tenderness, guarding, rebound - Extremities Exam Extremities exam: Present: normal inspection - Back Exam Back exam: Present: normal inspection - Neurological Exam Neurological exam: Present: alert, oriented X3 - Psychiatric Psychiatric exam: Present: normal affect, normal mood - Skin Skin exam: Present: warm, dry, intact, normal color. Absent: rash ED Course Vital Signs 12/30/19 12:34 Temperature 98 F Pulse Rate 94 H Respiratory 26 H Rate Blood Pressure 141/86 O2 Sat by Pulse 98 Oximetry ED Medical Decision Making - Lab Data Result diagrams: 12/30/19 13:18 12/30/19 13:18 Lab Results 12/30/19 12/30/19 12/30/19 Range/Units 13:18 13:18 15:23 WBC 10.4 (4.5-11.0) K/mm3 RBC 4.37 (3.65-5.03) M/mm3 Hgb 11.5 (10.1-14.3) gm/dl Hct 35.1 (30.3-42.9) % MCV 80 (79-97) fl MCH 26 L (28-32) pg MCHC 33 (30-34) % RDW 16.5 H (13.2-15.2) % Plt Count 283 (140-440) K/mm3 Lymph % (Auto) 33.5 (13.4-35.0) % Harvey % (Auto) 8.7 H (0.0-7.3) % Eos % (Auto) 1.1 (0.0-4.3) % Baso % (Auto) 0.3 (0.0-1.8) % Lymph # 3.5 (1.2-5.4) K/mm3 Harvey # 0.9 H (0.0-0.8) K/mm3 Eos # 0.1 (0.0-0.4) K/mm3 Baso # 0.0 (0.0-0.1) K/mm3 Seg Neutrophils % 56.4 (40.0-70.0) % Seg Neutrophils # 5.9 (1.8-7.7) K/mm3 Sodium 139 (137-145) mmol/L Potassium 3.0 L (3.6-5.0) mmol/L Chloride 101.2 (98-107) mmol/L Carbon Dioxide 25 (22-30) mmol/L Anion Gap 16 mmol/L BUN 16 (7-17) mg/dL Creatinine 1.2 (0.6-1.2) mg/dL Estimated GFR 55 ml/min BUN/Creatinine Ratio 13 % Glucose 83 (65-100) mg/dL Calcium 8.5 (8.4-10.2) mg/dL Troponin T < 0.010 < 0.010 (0.00-0.029) ng/mL - EKG Data -: EKG Interpreted by [facility] EKG shows normal: sinus rhythm, axis, intervals, QRS complexes, ST-T waves Rate: normal - EKG Data Interpretation: normal EKG - Radiology Data CHEST PA AND LATERAL VIEWS INDICATION: Chest Pain. COMPARISON: 3 days prior FINDINGS: Support devices: None. Heart: Within normal limits. Lungs/Pleura: No acute pulmonary or pleural findings. IMPRESSION: 1. No acute findings. Signer Name: Mian Collado MD Signed: 12/30/2019 1:14 PM Workstation Name: [id number] Transcribed By: JYOTI Dictated By: Mian Collado MD Electronically Authenticated By: Mian Collado MD Signed Date/Time: 12/30/19 1314 - Medical Decision Making Patient is a 64-year-old F Thai female who is presenting with discomfort in the chest. Symptoms are most consistent with GERD. Likely exacerbated by the antibiotics that she is taking. Patient be started on omeprazole Pepcid should be discharged home. Critical care attestation.: If time is entered above; I have spent that time in minutes in the direct care of this critically ill patient, excluding procedure time. ED Disposition Clinical Impression: GERD (gastroesophageal reflux disease), Hypokalemia Disposition: DC-01 TO HOME OR SELFCARE Is pt being admited?: No Does the pt Need Aspirin: No Condition: Stable Instructions: Diet for Ulcers and Gastritis (ED), Gastroesophageal Reflux Disease (ED) Referrals: PRIMARY CARE, [Primary Care Provider] - 3-5 Days [facility] [Provider Group] - 3-5 Days Time of Disposition: 17:50
[2019-12-30 18:02] VITALS: BP 140/80
== END 2019-12-30 18:22 | disposition home or self-care (01) ==
LOC: ED 12:30
DX: K21.9 Gastro-esophageal reflux disease without esophagitis (principal); E87.6 Hypokalemia; I10 Essential (primary) hypertension; M19.91 Primary osteoarthritis, unspecified site; G43.909 Migraine, unspecified, not intractable, without status migrainosus; J44.9 Chronic obstructive pulmonary disease, unspecified; F20.9 Schizophrenia, unspecified; Z90.49 Acquired absence of other specified parts of digestive tract; Z90.710 Acquired absence of both cervix and uterus; Z87.891 Personal history of nicotine dependence; Z79.2 Long term (current) use of antibiotics; Z79.899 Other long term (current) drug therapy; Z88.0 Allergy status to penicillin; Z88.8 Allergy status to other drugs, medicaments and biological substances
CPT/HCPCS: 36415; 71046; 80048; 84484; 85025; 93005

== ENCOUNTER 2020-01-24 19:10 | Observation (INO) | payer MEDICARE ==
[2020-01-24] MEDS ORDERED: ASPIRIN 325 MG TAB PO ONE (19:27)
[2020-01-24 19:54] LABS: Basophils # (Auto) 0.1 K/mm3 (0.0-0.1); Basophils % (Auto) 0.9 % (0.0-1.8); Eosinophils # (Auto) 0.1 K/mm3 (0.0-0.4); Eosinophils % (Auto) 1.5 % (0.0-4.3); Hematocrit 36.2 % (30.3-42.9); Hemoglobin 11.8 gm/dl (10.1-14.3); Lymphocytes # (Auto) 2.3 K/mm3 (1.2-5.4); Lymphocytes % (Auto) 28.9 % (13.4-35.0); Mean Corpuscular HGB Conc 33 % (30-34); Mean Corpuscular Volume 79 fl (79-97); Monocytes # (Auto) 0.6 K/mm3 (0.0-0.8); Monocytes % (Auto) 7.7 % (0.0-7.3); Platelet Count 331 K/mm3 (140-440); Red Blood Count 4.56 M/mm3 (3.65-5.03); Red Cell Distribution Width 16.1 % (13.2-15.2)
[2020-01-24 20:00] LABS: BUN/Creatinine Ratio 12; Blood Urea Nitrogen 14 mg/dL (7-17); Calcium 8.9 mg/dL (8.4-10.2); Hemolysis Index 13
--- NOTE | 2020-01-24 20:18 | XRay Report ---
CHEST 2 VIEWS INDICATION / CLINICAL INFORMATION: Chest pain, tightness. COMPARISON: 12/30/2019 FINDINGS: SUPPORT DEVICES: None. HEART / MEDIASTINUM: No significant abnormality. LUNGS / PLEURA: No significant pulmonary or pleural abnormality. .No pneumothorax. ADDITIONAL FINDINGS: No significant additional findings. IMPRESSION: 1. No acute findings. Signer Name: Prosper Ghotra MD Signed: 01/24/2020 8:13 PM Workstation Name: [id number]
[2020-01-24] MEDS ORDERED: IPRATROPIUM/ALBUTEROL SULFATE 3 ML AMPUL.NEB IH ONE (22:09)
[2020-01-24] MEDS ORDERED: POTASSIUM CHLORIDE ER 20 MEQ TAB PO ONE (22:09)
[2020-01-24] MEDS ORDERED: ASPIRIN 81 MG TAB CHEW ONE (22:12)
[2020-01-24] MEDS ORDERED: methylPREDNISolone Sod Succinate 125 MG/2 ML INJ IV ONE (22:13)
[2020-01-24] MEDS ORDERED: ASPIRIN 81 MG TAB CHEW PO ONE (22:14)
--- NOTE | 2020-01-24 22:15 | Emergency Department Report ---
ED Chest Pain HPI - General Chief Complaint: Chest Pain Stated Complaint: CHEST PAIN Time Seen by Provider: 01/24/20 22:02 Source: patient Mode of arrival: Wheelchair Limitations: No Limitations - History of Present Illness Initial Comments: This is a 64-year-old -[place] female who presents to the emergency department with a complaint of generalized chest tightness and shortness of breath that has been going on for the past month but worsened significantly today. It is associated with a mixed dry and productive cough. Patient denies any fever, nausea, vomiting, back pain. She says that she was diagnosed with bronchitis on December 22 and has been using the inhalers and medications without any relief. Patient went to see a buckle frame shaper today, Dr. Sotomayor at [facility] cardiology, and she says that she is going to be scheduled for a stress test. She denies any tobacco or illicit drug use. The patient's symptoms are exacerbated when she is coughing. No known alleviating factors. She has a past medical history of hypertension, migraine headaches, COPD but is not oxygen dependent. She has a psychiatric history of bipolar disorder, schizophrenia and anxiety. - Related Data Home Medications Medication Instructions Recorded Confirmed Last Taken hydroCHLOROthiazide [HCTZ] 25 mg PO QDAY 01/09/14 09/13/16 12/03/16 Loratadine (Nf) [Claritin (Nf)] 10 mg PO QDAY 01/31/14 09/13/16 12/03/16 Albuterol Sulfate [Ventolin HFA] 2 puff IH Q4H PRN 01/10/15 09/13/16 01/10/15 14:40 Meclizine [Antivert] 50 mg PO BID 01/10/15 09/13/16 12/03/16 Omeprazole [PriLOSEC] 20 mg PO QDAY 01/10/15 09/13/16 12/03/16 PARoxetine [Paxil] 20 mg PO DAILY 01/10/15 09/13/16 12/03/16 Simvastatin (Nf) [Zocor TAB] 40 mg PO QHS 01/10/15 09/13/16 12/03/16 Ammonium Lactate/Emu Oil 1 tube PERCUTANEO BID 09/13/16 09/13/16 Unknown Fluticasone Propionate 1 spray INNOSTRIL DAILY 09/13/16 09/13/16 12/03/16 Gabapentin 100 mg TID PRN 09/13/16 09/13/16 12/03/16 lisinopriL [Zestril TAB] 20 mg PO QDAY 09/13/16 09/13/16 12/03/16 Previous Rx's Medication Instructions Recorded Last Taken Type Montelukast [Singulair] 10 mg PO QHS #30 tablet 02/04/14 12/03/16 Rx Ciprofloxacin HCl [Ciprofloxacin 500 mg PO Q12HR 3 Days tab 09/14/16 Unknown Rx TAB] Divalproex Dr [Depakote Dr] 500 mg PO BID #1 tablet 09/14/16 12/03/16 Rx Furosemide [Lasix TAB] 20 mg PO QDAY #1 tablet 09/14/16 12/03/16 Rx Nortriptyline [Pamelor] 25 mg PO QDAY #1 capsule 09/14/16 12/03/16 Rx risperiDONE [RisperDAL] 0.5 mg PO BID #1 tablet 09/14/16 12/03/16 Rx Famotidine [Pepcid] 40 mg PO QHS #10 tablet 12/30/19 Unknown Rx Pantoprazole [Protonix] 40 mg PO QDAY #30 tablet 12/30/19 Unknown Rx Allergies Allergy/AdvReac Type Severity Reaction Status Date / Time Penicillins Allergy Mild Unknown Verified 01/24/20 19:17 propoxyphene Allergy NAUSEA,VOMI Unverified 01/24/20 19:17 TING Heart Score - HEART Score History: Slightly suspicious EKG: Normal Age: 45-65 Risk factors: 1-2 risk factors Troponin: < normal limit HEART Score: 2 - Critical Actions Critical Actions: 0-3 pts:0.9-1.7%risk of adverse cardiac event.Candidate for discharge ED Review of Systems ROS: Stated complaint: CHEST PAIN Other details as noted in HPI Comment: All other systems reviewed and negative Constitutional: denies: chills, fever Eyes: denies: eye pain, vision change ENT: denies: ear pain, throat pain Respiratory: cough, shortness of breath Cardiovascular: chest pain. denies: edema Gastrointestinal: denies: abdominal pain, vomiting Genitourinary: denies: dysuria, discharge Musculoskeletal: denies: back pain, arthralgia Skin: denies: rash, lesions Neurological: denies: headache, weakness ED Past Medical Hx - Past Medical History Hx Hypertension: Yes Hx Congestive Heart Failure: No Hx Diabetes: No Hx Arthritis: Yes Hx Headaches / Migraines: Yes Hx Psychiatric Treatment: Yes (Anxiety, Bipolar, Schizophrenia, Panic Attacks) Hx Asthma: Yes (has cough, states it is from a scratchy throat and that lungs feel fine) Hx COPD: Yes Hx HIV: No Additional medical history: anxiety - Surgical History Hx Appendectomy: Yes Additional Surgical History: Hysterectomy - Social History Smoking Status: Never Smoker Substance Use Type: None - Medications Home Medications: Home Medications Medication Instructions Recorded Confirmed Last Taken Type hydroCHLOROthiazide [HCTZ] 25 mg PO QDAY 01/09/14 09/13/16 12/03/16 History Loratadine (Nf) [Claritin (Nf)] 10 mg PO QDAY 01/31/14 09/13/16 12/03/16 History Montelukast [Singulair] 10 mg PO QHS #30 tablet 02/04/14 09/13/16 12/03/16 Rx Albuterol Sulfate [Ventolin HFA] 2 puff IH Q4H PRN 01/10/15 09/13/16 01/10/15 14:40 History Meclizine [Antivert] 50 mg PO BID 01/10/15 09/13/16 12/03/16 History Omeprazole [PriLOSEC] 20 mg PO QDAY 01/10/15 09/13/16 12/03/16 History PARoxetine [Paxil] 20 mg PO DAILY 01/10/15 09/13/16 12/03/16 History Simvastatin (Nf) [Zocor TAB] 40 mg PO QHS 01/10/15 09/13/16 12/03/16 History Ammonium Lactate/Emu Oil 1 tube PERCUTANEO BID 09/13/16 09/13/16 Unknown History Fluticasone Propionate 1 spray INNOSTRIL DAILY 09/13/16 09/13/16 12/03/16 History Gabapentin 100 mg TID PRN 09/13/16 09/13/16 12/03/16 History lisinopriL [Zestril TAB] 20 mg PO QDAY 09/13/16 09/13/16 12/03/16 History Ciprofloxacin HCl [Ciprofloxacin 500 mg PO Q12HR 3 Days tab 09/14/16 Unknown Rx TAB] Divalproex Dr [Depakote Dr] 500 mg PO BID #1 tablet 09/14/16 12/03/16 Rx Furosemide [Lasix TAB] 20 mg PO QDAY #1 tablet 09/14/16 12/03/16 Rx Nortriptyline [Pamelor] 25 mg PO QDAY #1 capsule 09/14/16 12/03/16 Rx risperiDONE [RisperDAL] 0.5 mg PO BID #1 tablet 09/14/16 12/03/16 Rx Famotidine [Pepcid] 40 mg PO QHS #10 tablet 12/30/19 Unknown Rx Pantoprazole [Protonix] 40 mg PO QDAY #30 tablet 12/30/19 Unknown Rx ED Physical Exam - General Limitations: No Limitations - Other Other exam information: GENERAL: The patient is well-developed well-nourished. HENT: Normocephalic. Atraumatic. Patient has moist mucous membranes. EYES: Extraocular motions are intact. NECK: Supple. Trachea is midline. CHEST/LUNGS: Clear to auscultation. There is no respiratory distress noted. HEART/CARDIOVASCULAR: Regular. There is no tachycardia. There is no murmur. ABDOMEN: Abdomen is soft, nontender. Patient has normal bowel sounds. SKIN: Skin is warm and dry. NEURO: The patient is awake, alert, and oriented. The patient is cooperative. The patient has no focal neurologic deficits. Normal speech. MUSCULOSKELETAL: There is no tenderness or deformity. There is no evidence of acute injury. ED Course Vital Signs 01/24/20 01/24/20 01/24/20 19:22 22:04 22:15 Temperature 98.0 F Pulse Rate 103 H 89 Pulse Rate [ Bilateral Throughout] Respiratory 18 29 H Rate Respiratory Rate [Bilateral Throughout] Blood Pressure 118/70 116/77 O2 Sat by Pulse 96 98 93 Oximetry 01/24/20 01/24/20 22:45 23:00 Temperature Pulse Rate 96 H Pulse Rate [ 74 Bilateral Throughout] Respiratory 32 H Rate Respiratory 21 Rate [Bilateral Throughout] Blood Pressure 127/78 O2 Sat by Pulse 92 Oximetry MURALI score - Murali Score Age > 65: (0) No Aspirin use within the Past 7 Days: (1) Yes 3 or more CAD Risk Factors: (0) No 2 or more Angina events in past 24 hrs: (1) Yes Known CAD with more than 50% Stenosis: (0) No Elevated Cardiac Markers: (0) No ST Deviation Greater than 0.5mm: (0) No MURALI Score: 2 ED Medical Decision Making - Lab Data Result diagrams: 01/24/20 19:28 01/24/20 19:28 - EKG Data -: EKG Interpreted by Me EKG shows normal: sinus rhythm, axis, intervals, QRS complexes, ST-T waves Rate: normal - EKG Data When compared to previous EKG there are: no significant change Interpretation: unchanged when compared t (12/27/19) - Radiology Data Radiology results: report reviewed, image reviewed interpreted by me: Chest x-ray does not show any acute process. There are no pleural effusions, obvious pneumonia and there is no pneumothorax. No significant cardiomegaly. CTA CHEST WITH IV CONTRAST INDICATION: P.E. PROTOCOL!! Chest pain, elevated D- dimer, S.O.B.. TECHNIQUE: Axial CT images were obtained through the chest after injection of IV contrast. 3 plane MIP reconstructions were produced. All CT scans at this location are performed using CT dose reduction for Dejamor by means of automated exposure control. COMPARISON: CT 12/28/2019 FINDINGS: Pulmonary Arteries: There is respiratory motion artifact which limits evaluation of the peripheral pulmonary arterial tree. Accounting for this, no previa seen. Thoracic Aorta: No acute abnormality. Heart: Normal. Lungs: No acute air space or interstitial disease. Pleura: No pleural effusion. No pneumothorax. Lymph Nodes: No significant adenopathy. Additional Findings: There is a 2.2 cm soft tissue density adjacent to the trachea displacing it toward the right (series 2 image 9). This may be inferior extension of the left thyroid lobe. This is unchanged. Upper Abdomen: No acute findings. Skeletal Structures: No significant osseous abnormality. IMPRESSION: 1. No CT evidence for pulmonary embolism. 2. No acute findings. 3. 2.2 cm soft tissue density adjacent to the trachea near the thoracic inlet appears to be inferior extension of the left thyroid lobe. This is unchanged since the prior CT. - Medical Decision Making This patient presents to the emergency department with a complaint of some chest discomfort and tightness as well as some shortness of breath. Overall this has been going on for the past few weeks but worsened in the past 24 hours. The patient went to see a buckle frame shaper today and is supposed to be set up for a stress test soon. Patient says that her symptoms worsened after her cardiology appointment so she came in for further evaluation. An EKG was performed that does not have any morphology consistent with ST elevation [place] or any signs of obvious ischemia or dysrhythmia. Chest x-ray did not show any pneumonia, pleural effusions, pneumothorax, focal consolidation, or any other acute process. The patient's labs have been mostly remarkable including CBC, BMP, negative troponins x2, but the patient did have a slightly elevated D-dimer level. For this reason a CT angiography of the chest was completed that does not show any evidence for pulmonary embolism or any other acute findings. At one point the patient appeared to have some type of an anxiety attack and was given a small dose of Ativan with some improvement. Her vital signs have been reassuring throughout her ED course. While the patient does have a low heart and MURALI score, she has continued chest discomfort and is supposed to have a stress test soon. For these reasons the patient will be admitted to the hospital for further evaluation and treatment was accepted for admission by the hospitalist, Dr. Celeste. Critical Care Time: No Critical care attestation.: If time is entered above; I have spent that time in minutes in the direct care of this critically ill patient, excluding procedure time. ED Disposition Clinical Impression: Acute chest pain, Chest pain, rule out acute myocardial infarction, Anxiety attack Disposition: OP ADMIT IP TO THIS HOSP Is pt being admited?: Yes Referrals: JEAN-CLAUDE PETTY MD [Primary Care Provider] - 3-5 Days Time of Disposition: 01:03
[2020-01-24] MEDS ORDERED: SODIUM CHLORIDE 0.9% 1000 ML 1,000 ML ONE (22:19)
[2020-01-24] MEDS: POTASSIUM CHLORIDE 10 MEQ 10 MEQ/100 ML BAG IV SCH ×2 (22:30→23:36)
[2020-01-24] MEDS ORDERED: LORazepam 2 MG/ML VIAL IV ONE (22:54)
--- NOTE | 2020-01-25 00:51 | Cat Scan Report ---
CTA CHEST WITH IV CONTRAST INDICATION: P.E. PROTOCOL!! Chest pain, elevated D-dimer, S.O.B.. TECHNIQUE: Axial CT images were obtained through the chest after injection of IV contrast. 3 plane MIP reconstru ctions were produced. All CT scans at this location are performed using CT dose reduction for ALARA b y means of automated exposure control. COMPARISON: CT 12/28/2019 FINDINGS: Pulmonary Arteries: There is respiratory motion artifact which limits evaluation of the peripheral pu lmonary arterial tree. Accounting for this, no previa seen. Thoracic Aorta: No acute abnormality. Heart: Normal. Lungs: No acute air space or interstitial disease. Pleura: No pleural effusion. No pneumothorax. Lymph Nodes: No significant adenopathy. Additional Findings: There is a 2.2 cm soft tissue density adjacent to the trachea displacing it towa rd the right (series 2 image 9). This may be inferior extension of the left thyroid lobe. This is unc hanged. Upper Abdomen: No acute findings. Skeletal Structures: No significant osseous abnormality. IMPRESSION: 1. No CT evidence for pulmonary embolism. 2. No acute findings. 3. 2.2 cm soft tissue density adjacent to the trachea near the thoracic inlet appears to be inferior extension of the left thyroid lobe. This is unchanged since the prior CT. Signer Name: Mian Collado MD Signed: 01/25/2020 12:46 AM Workstation Name: [id number]
[2020-01-25] MEDS ORDERED: NITROGLYCERIN 0.4 MG TAB SUBL SL PRN (01:18)
[2020-01-25] MEDS ORDERED: ACETAMINOPHEN 325 MG TAB PO PRN (01:18)
[2020-01-25] MEDS ORDERED: MAGNESIUM HYDROXIDE (MOM) ORAL LIQD UDC PO PRN (01:18)
[2020-01-25] MEDS ORDERED: ONDANSETRON 4 MG/2 ML INJ IV PRN (01:18)
--- NOTE | 2020-01-25 01:38 | History and Physical Report ---
History of Present Illness Date of examination: 01/25/20 Date of admission: 01/25/20 01:03 Chief complaint: Chest Pain History of present illness: 64-year-old -[place] female with known history of hypertension and bipolar disorder presented to the emergency room today complaining of chest tightness with associated shortness of breath which has been ongoing for about a month. Chest tightness is said to have gotten worse today and decided to report to the emergency room. She saw her director of cloud services Dr. Mckeon at [facility] cardiology today and has a stress test scheduled on outpatient basis. She was recently diagnosed with bronchitis few weeks ago and was given some inhaler which she has been using without any significant improvement. She has h ad some mild cough which is now productive. Patient denies any fever or chills, no nausea vomiting, no abdominal pain, she denies any headaches or dizziness. Work-up in the emergency room today including EKG, chest x-ray and troponin levels were unremarkable. Patient admitted for work-up for chest pain. Past History Past Medical History: arthritis, GERD, hypertension, other (Panic attacks, Anxiety, Schizophrenia, Bipolar disorder) Past Surgical History: hysterectomy Social history: no significant social history Family history: no significant family history Medications and Allergies Allergies Allergy/AdvReac Type Severity Reaction Status Date / Time Penicillins Allergy Mild Unknown Verified 01/24/20 19:17 propoxyphene Allergy NAUSEA,VOMI Unverified 01/24/20 19:17 TING Home Medications Medication Instructions Recorded Confirmed Last Taken Type hydroCHLOROthiazide [HCTZ] 25 mg PO QDAY 01/09/14 01/25/20 1 Day Ago History ~01/24/20 Loratadine (Nf) [Claritin (Nf)] 10 mg PO QDAY 01/31/14 01/25/20 1 Day Ago History ~01/24/20 Montelukast [Singulair] 10 mg PO QHS #30 tablet 02/04/14 01/25/20 1 Day Ago Rx ~01/24/20 Albuterol Sulfate [Ventolin HFA] 2 puff IH Q4H PRN 01/10/15 01/25/20 1 Day Ago History ~01/24/20 Meclizine [Antivert] 50 mg PO BID 01/10/15 01/25/20 1 Day Ago History ~01/24/20 Omeprazole [PriLOSEC] 20 mg PO QDAY 01/10/15 01/25/20 1 Day Ago History ~01/24/20 PARoxetine [Paxil] 20 mg PO DAILY 01/10/15 01/25/20 1 Day Ago History ~01/24/20 Simvastatin (Nf) [Zocor TAB] 40 mg PO QHS 01/10/15 01/25/20 1 Day Ago History ~01/24/20 Ammonium Lactate/Emu Oil 1 tube PERCUTANEO BID 09/13/16 01/25/20 1 Day Ago History ~01/24/20 Fluticasone Propionate 1 spray INNOSTRIL DAILY 09/13/16 01/25/20 1 Day Ago History ~01/24/20 Gabapentin 100 mg TID PRN 09/13/16 01/25/20 1 Day Ago History ~01/24/20 lisinopriL [Zestril TAB] 20 mg PO QDAY 09/13/16 01/25/20 1 Day Ago History ~01/24/20 Ciprofloxacin HCl [Ciprofloxacin 500 mg PO Q12HR 3 Days tab 09/14/16 01/25/20 1 Day Ago Rx TAB] ~01/24/[address] [Depakote Dr] 500 mg PO BID #1 tablet 09/14/16 01/25/20 1 Day Ago Rx ~01/24/20 Furosemide [Lasix TAB] 20 mg PO QDAY #1 tablet 09/14/16 01/25/20 1 Day Ago Rx ~01/24/20 Nortriptyline [Pamelor] 25 mg PO QDAY #1 capsule 09/14/16 01/25/20 1 Day Ago Rx ~01/24/20 risperiDONE [RisperDAL] 0.5 mg PO BID #1 tablet 09/14/16 01/25/20 1 Day Ago Rx ~01/24/20 Famotidine [Pepcid] 40 mg PO QHS #10 tablet 12/30/19 01/25/20 1 Day Ago Rx ~01/24/20 Pantoprazole [Protonix] 40 mg PO QDAY #30 tablet 12/30/19 01/25/20 1 Day Ago Rx ~01/24/20 Active Meds: Active Medications Acetaminophen (Tylenol) 650 mg PO Q4H PRN PRN Reason: Pain MILD(1-3)/Fever >100.5/JIMENES Acetaminophen (Tylenol) 650 mg PO Q6H PRN PRN Reason: Pain, Mild (1-3) Aspirin (Ecotrin) 325 mg PO QDAY WALE Enoxaparin Sodium (Enoxaparin) 40 mg SUB-Q QDAY@2200 WALE; Protocol Magnesium Hydroxide (Milk Of Magnesia) 30 ml PO Q4H PRN PRN Reason: Constipation Morphine Sulfate (Morphine) 2 mg IV Q5MIN PRN PRN Reason: Chest Pain Nitroglycerin (Nitrostat) 0.4 mg SL Q5M PRN PRN Reason: Chest Pain Ondansetron HCl (Zofran) 4 mg IV Q8H PRN PRN Reason: Nausea And Vomiting Sodium Chloride (Sodium Chloride Flush Syringe 10 Ml) 10 ml IV BID WALE Sodium Chloride (Sodium Chloride Flush Syringe 10 Ml) 10 ml IV PRN PRN PRN Reason: LINE FLUSH Review of Systems Constitutional: no fever, no chills Ears, nose, mouth and throat: no nasal congestion, no sore throat Cardiovascular: chest pain, no palpitations Respiratory: shortness of breath, no cough Gastrointestinal: no abdominal pain, no nausea, no vomiting, no diarrhea Genitourinary Female: no pelvic pain, no flank pain, no dysuria, no hematuria Musculoskeletal: no neck pain, no low back pain Integumentary: no rash, no pruritis Neurological: no headaches, no confusion Psychiatric: anxiety, no depression, no confusion Exam - Constitutional Vitals: Temp Pulse Resp BP Pulse Ox 98.0 F 96 H 32 H 127/78 92 01/24/20 19:22 01/24/20 23:00 01/24/20 23:00 01/24/20 23:00 01/24/20 23:00 General appearance: Present: no acute distress, well-nourished - EENT Eyes: Present: PERRL, EOM intact. Absent: scleral icterus ENT: hearing intact, clear oral mucosa, dentition normal - Neck Neck: Present: supple, normal ROM - Respiratory Respiratory effort: normal Respiratory: bilateral: CTA - Cardiovascular Rhythm: regular Heart Sounds: Present: S1 & S2. Absent: gallop, systolic murmur, rub - Extremities Extremities: no ischemia, pulses intact, pulses symmetrical, No edema, normal temperature, Full ROM Peripheral Pulses: within normal limits - Abdominal General gastrointestinal: Present: soft, non-tender, non-distended, normal bowel sounds. Absent: mass - Integumentary Integumentary: Present: clear, warm, dry - Musculoskeletal Musculoskeletal: strength equal bilaterally - Psychiatric Psychiatric: appropriate mood/affect, intact judgment & insight, memory intact, cooperative - Neurologic Neurologic: CNII-XII intact, no focal deficits, moves all extremities HEART Score - HEART Score EKG: Normal Age: 45-65 Risk factors: 1-2 risk factors Troponin: Troponin T < 0.010 ng/mL (0.00-0.029) 01/24/20 22:21 Troponin: < normal limit - Critical Actions Critical Actions: 0-3 pts:0.9-1.7%risk of adverse cardiac event.Candidate for discharge Results - Labs CBC & Chem 7: 01/25/20 01:38 01/25/20 01:38 Labs: Abnormal lab results 01/24/20 01/24/20 01/24/20 Range/Units 19:28 19:28 22:21 MCH 26 L (28-32) pg RDW 16.1 H (13.2-15.2) % [place] % (Auto) 7.7 H (0.0-7.3) % D-Dimer 498.40 H (0-234) ng/mlDDU Potassium 2.8 L* (3.6-5.0) mmol/L Assessment and Plan - Patient Problems (1) Acute chest pain Current Visit: Yes Status: Acute Plan to address problem: Patient admitted and placed on telemetry. Will check serial cardiac enzymes. Patient placed on aspirin, sublingual nitroglycerin and IV morphine as needed for chest pain. Will request cardiology evaluation and recommendation. Patient has been following up with Dr. Sotomayor at [facility] cardiology. (2) HTN (hypertension) Current Visit: No Status: Chronic Plan to address problem: Blood pressure stable. We will resume routine home medications and monitor vital signs closely. (3) DVT prophylaxis Current Visit: No Status: Acute Plan to address problem: Patient placed on subcutaneous Lovenox. (4) Full code status Current Visit: Yes Status: Acute
[2020-01-25 01:59] LABS: Basophils % (Auto) 0.3 % (0.0-1.8); Eosinophils % (Auto) 0.4 % (0.0-4.3); Hematocrit 36.6 % (30.3-42.9); Hemoglobin 12.1 gm/dl (10.1-14.3); Lymphocytes % (Auto) 10.3 % (13.4-35.0); Mean Corpuscular HGB Conc 33 % (30-34); Mean Corpuscular Volume 80 fl (79-97); Monocytes # (Auto) 0.2 K/mm3 (0.0-0.8); Platelet Count 348 K/mm3 (140-440); Red Blood Count 4.59 M/mm3 (3.65-5.03); Red Cell Distribution Width 16.3 % (13.2-15.2)
[2020-01-25 02:14] LABS: Calcium 9.2 mg/dL (8.4-10.2)
[2020-01-25] MEDS: ACETAMINOPHEN 325 MG TAB PO PRN ×3 (08:34→22:15)
[2020-01-25] MEDS ORDERED: REGADENOSON 0.4 MG/5 ML INJ IV ONE (10:28)
[2020-01-25] MEDS ORDERED: LORazepam 2 MG/ML VIAL ONE (11:09)
[2020-01-25] MEDS ORDERED: AMINOPHYLLINE 500 MG/20 ML INJ IV ONE ×2 (11:14→13:28)
--- NOTE | 2020-01-25 11:37 | Progress Note ---
Assessment and Plan Assessment and plan: --Seizure post Lexiscan Current Visit: Yes Status: Acute Plan to address problem: Patient had seizure post Cindy scan patient received IV Ativan No new episodes since then Patient was not postictal when she returned to the room Seizure precautions, IV Ativan as needed CT head without contrast, EEG, Neurology consult Do not drive Patient gives history of seizure disorder many years ago Patient has been off of antiepileptics per her primary care physician --Acute chest pain Current Visit: Yes Status: Acute Plan to address problem: Patient had stress test, Pending report Continue current cardiac medications --HTN (hypertension) Current Visit: No Status: Chronic Plan to address problem: Blood pressure stable. We will resume routine home medications and monitor vital signs closely. --DVT prophylaxis Current Visit: No Status: Acute Plan to address problem: Patient placed on subcutaneous Lovenox. 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 When I evaluated the patient in the room Patient is alert awake oriented x3 , No postictal drowsiness dizziness or confusion Vital signs reviewed Hospitalist Physical - Constitutional Vitals: Temp Pulse Resp BP Pulse Ox 98.3 F 103 H 18 99/72 94 01/25/20 07:34 01/25/20 07:34 01/25/20 07:34 01/25/20 07:34 01/25/20 07:34 General appearance: Present: no acute distress, well-nourished - EENT Eyes: Present: PERRL, EOM intact - Neck Neck: Present: supple, normal ROM - Respiratory Respiratory effort: normal Respiratory: bilateral: diminished, negative: rales, rhonchi, wheezing - Cardiovascular Rhythm: regular Heart Sounds: Present: S1 & S2 - Extremities Extremities: no ischemia, No edema - Abdominal General gastrointestinal: soft, non-tender, non-distended, normal bowel sounds - Integumentary Integumentary: Present: clear, warm - Psychiatric Psychiatric: appropriate mood/affect, cooperative - Neurologic Neurologic: moves all extremities HEART Score - HEART Score EKG: Normal Age: 45-65 Risk factors: 1-2 risk factors Troponin: Troponin T < 0.010 ng/mL (0.00-0.029) 01/25/20 06:56 Troponin: < normal limit - Critical Actions Critical Actions: 0-3 pts:0.9-1.7%risk of adverse cardiac event.Candidate for discharge Results - Labs CBC & Chem 7: 01/25/20 01:38 01/25/20 01:38 Labs: Laboratory Last Values WBC 9.5 K/mm3 (4.5-11.0) 01/25/20 01:38 RBC 4.59 M/mm3 (3.65-5.03) 01/25/20 01:38 Hgb 12.1 gm/dl (10.1-14.3) 01/25/20 01:38 Hct 36.6 % (30.3-42.9) 01/25/20 01:38 MCV 80 fl (79-97) 01/25/20 01:38 MCH 26 pg (28-32) L 01/25/20 01:38 MCHC 33 % (30-34) 01/25/20 01:38 RDW 16.3 % (13.2-15.2) H 01/25/20 01:38 Plt Count 348 K/mm3 (140-440) 01/25/20 01:38 Lymph % (Auto) 10.3 % (13.4-35.0) L 01/25/20 01:38 [place] % (Auto) 2.0 % (0.0-7.3) 01/25/20 01:38 Eos % (Auto) 0.4 % (0.0-4.3) 01/25/20 01:38 Baso % (Auto) 0.3 % (0.0-1.8) 01/25/20 01:38 Lymph # (Auto) 1.0 K/mm3 (1.2-5.4) L 01/25/20 01:38 [place] # (Auto) 0.2 K/mm3 (0.0-0.8) 01/25/20 01:38 Eos # (Auto) 0.0 K/mm3 (0.0-0.4) 01/25/20 01:38 Baso # (Auto) 0.0 K/mm3 (0.0-0.1) 01/25/20 01:38 Seg Neutrophils % 87.0 % (40.0-70.0) H 01/25/20 01:38 Seg Neutrophils # 8.3 K/mm3 (1.8-7.7) H 01/25/20 01:38 D-Dimer 498.40 ng/mlDDU (0-234) H 01/24/20 22:21 Sodium 138 mmol/L (137-145) 01/25/20 01:38 Potassium 4.0 mmol/L (3.6-5.0) D 01/25/20 01:38 Chloride 99.2 mmol/L (98-107) 01/25/20 01:38 Carbon Dioxide 24 mmol/L (22-30) 01/25/20 01:38 Anion Gap 19 mmol/L 01/25/20 01:38 BUN 15 mg/dL (7-17) 01/25/20 01:38 Creatinine 1.2 mg/dL (0.6-1.2) 01/25/20 01:38 Estimated GFR 55 ml/min 01/25/20 01:38 BUN/Creatinine Ratio 13 % 01/25/20 01:38 Glucose 163 mg/dL (65-100) H 01/25/20 01:38 POC Glucose 122 (70-105) H 01/25/20 11:32 Calcium 9.2 mg/dL (8.4-10.2) 01/25/20 01:38 Troponin T < 0.010 ng/mL (0.00-0.029) 01/25/20 06:56 NT-Pro-B Natriuret Pep 43.95 pg/mL (0-900) 01/24/20 22:21 Rutledge/IV: Voiding Method Incontinent IV Catheter Type [Right Peripheral IV Antecubital] Active Medications - Current Medications Current Medications: Generic Name Dose Route Start Last Admin Trade Name Freq PRN Reason Stop Dose Admin Acetaminophen 650 mg 01/25/20 01:18 01/25/20 08:34 Tylenol PO 650 mg Q4H PRN Administration Pain MILD(1-3)/Fever >100.5/JIMENES Aspirin 325 mg 01/26/20 10:00 Ecotrin PO QDAY WALE Enoxaparin Sodium 40 mg 01/25/20 22:00 Enoxaparin SUB-Q QDAY@2200 WALE Protocol Magnesium Hydroxide 30 ml 01/25/20 01:18 Milk Of Magnesia PO Q4H PRN Constipation Morphine Sulfate 2 mg 01/25/20 01:18 Morphine IV Q5MIN PRN Chest Pain Nitroglycerin 0.4 mg 01/25/20 01:18 Nitrostat SL Q5M PRN Chest Pain Ondansetron HCl 4 mg 01/25/20 01:18 Zofran IV Q8H PRN Nausea And Vomiting Sodium Chloride 10 ml 01/25/20 10:00 01/25/20 10:00 Sodium Chloride Flush Syringe 10 Ml IV Not Given BID WALE Sodium Chloride 10 ml 01/25/20 01:18 Sodium Chloride Flush Syringe 10 Ml IV PRN PRN LINE FLUSH
--- NOTE | 2020-01-25 11:44 | Event Note ---
Date: 01/25/20 Detailed cardiology consultation dictated. Pt seen in consultation by Dr. Sotomayor in our office yesterday with c/o chest pain and was scheduled for OP stress testing. She presented to ED due to worsening chest pain. AMI r/o. Pt underwent stress testing this AM, developed twitching with ? seizure-like activity after administration of Lexiscan, no loss of consciousness or focal deficits noted. Code METS called. She was given 1mg Ativan and 50mg Aminophylline (lexiscan reversal agent). Pt has h/o schizophrenia and bipolar disorder. Recommend head CT with neurology and psych evaluations per primary team. D/w Dr. Trejo. Lexiscan MPI stress test negative, normal EF. Will follow. Lakeisha ESQUIVEL NP / DR. Bria LOPEZ
[2020-01-25] MEDS ORDERED: LORazepam 2 MG/ML VIAL IV ONE (12:15)
[2020-01-25] MEDS ORDERED: AMINOPHYLLINE 50 MG in SODIUM CHLORIDE 0.9% 100 ML IV ONE (13:14)
--- NOTE | 2020-01-25 15:23 | Consultation ---
CARDIOLOGY CONSULTATION REFERRING PHYSICIAN: Hospitalist service. REASON FOR CONSULTATION: Advice and opinion regarding chest pain. HISTORY OF PRESENT ILLNESS: The patient is a pleasant 64-year-old -Citizen Of [place] female with known hypertension, schizophrenia, bipolar disorder, who presents to the Emergency Room with chest pain for about a month, chest tightness comes and goes, sometimes with activity. The patient is seen in the stress lab. She actually saw my partner, Dr. Sotomayor in the office yesterday and was scheduled for an outpatient stress, but presented to the Emergency Room earlier. She has had some history of bronchitis. Other medical history includes arthritis, GERD, hypertension, panic attack, anxiety, schizophrenia, bipolar disorder. PAST SURGICAL HISTORY: Hysterectomy. SOCIAL HISTORY: Nonsmoker, nondrinker. FAMILY HISTORY: No significant cardiac family history. ALLERGIES: PENICILLIN AND PROPOXYPHENE. MEDICATIONS: Inpatient and outpatient medications are reviewed. REVIEW OF SYSTEMS: As per HPI. PHYSICAL EXAMINATION: VITAL SIGNS: Blood pressure is 140/80. She is afebrile. Tele reveals sinus rhythm, no dysrhythmias. O2 sat is 98% on room air, GENERAL: This is a middle-aged -Citizen Of [place] female, in no apparent distress, oriented x3. HEENT: Sclerae are anicteric. PERRLA. NECK: Supple, no masses, no JVD. CHEST: Clear to auscultation bilaterally. Good air movement. CARDIOVASCULAR: Regular rhythm, S1, S2. ABDOMEN: Soft, nontender, nondistended. Normoactive bowel sounds in upper quadrants. No mass or bruits. EXTREMITIES: No cyanosis, clubbing, edema. Good peripheral pulses. SKIN: Intact. No rashes. LABORATORY DATA: Today, potassium is 4.0, yesterday was 2.8. Troponin negative x2. BNP negative. D-dimer is mildly elevated. CBC is unremarkable. CT chest reveals no evidence of pulmonary embolus. EKG is without acute ST segment changes. ASSESSMENT: In summary, the patient is a 64-year-old -Citizen Of [place] female with multiple risk factors, who presents with chest pain with mostly atypical features (nonexertional, fleeting, more sharp in nature). She is currently chest pain free with 3 negative sets of cardiac enzymes and nonacute EKG. Stress test, echocardiogram are pending. Other medical issues as per primary team. Stable cardiac status. JOB# [id number] DALILA/ALICIA
--- NOTE | 2020-01-25 15:27 | Treadmill Report ---
NUCLEAR STRESS TEST INDICATION FOR PROCEDURE: The patient is a pleasant 64-year-old female who presents with chest pain with mostly atypical features, multiple risk factors. A stress test was ordered. PROCEDURE IN DETAIL: The patient is seen in the lab. Prior to initiation of stress, she was asymptomatic. Hooked up to telemetry nurse and tech at bedside. After Lexiscan was administered, the patient developed shaking and unclear episode, unclear if this was neurogenic or psych related given her history. Code MET was immediately called, and team responded. A 1 mg of Ativan and 50 mL of aminophylline were administered. The patient mildly improved. She was coherent, able to recite her name, she was nonfocal, but overall shaking with tremors. Exam again was nonfocal. Approximately 30 minutes of critical care time were spent at this time. EKG was entirely nonacute. The patient reports no chest pain. I do not believe this is a cardiac event. Blood pressure remained normal. At this point, the patient will be immediately transferred to ICU for acute neuro evaluation. Should this episode be self-limited and psych in origin, we will do her stress imaging later today or tomorrow, but need to address this issue first. We will follow along. JOB# [id number] DALILA/ALICIA
--- NOTE | 2020-01-25 16:09 | Cat Scan Report ---
CT HEAD WITHOUT CONTRAST INDICATION / CLINICAL INFORMATION: Seizures. TECHNIQUE: Axial imaging performed from the skull apex through the skull base without the use of cont rast. Sagittal and coronal reformatted images. All CT scans at this location are performed using CT dose reduction for ALARA by means of automated exposure control. COMPARISON: None available. FINDINGS: CEREBRAL PARENCHYMA: No significant abnormality. No acute territorial infarct. HEMORRHAGE: None. EXTRA-AXIAL SPACES: Normal in size and morphology for the patient's age. VENTRICULAR SYSTEM: Normal in size and morphology for the patient's age. MIDLINE SHIFT OR HERNIATION: None. CEREBELLUM / BRAINSTEM: No significant abnormality. CALVARIUM: No significant abnormality. ORBITS: Normal as visualized. PARANASAL SINUSES / MASTOID AIR CELLS: Normal as visualized. SOFT TISSUES of HEAD: No significant abnormality. ADDITIONAL FINDINGS: None. IMPRESSION: No acute intracranial abnormality. Cranial CT scan within normal limits. Signer Name: Sanjeev Gaines Jr, MD Signed: 01/25/2020 4:04 PM Workstation Name: [id number]
[2020-01-25] MEDS ORDERED: LORazepam 2 MG/ML VIAL IV PRN (16:10)
[2020-01-25] MEDS: MORPHINE 4 MG/1 ML INJ IV PRN (17:57)
[2020-01-25] MEDS: DIVALPROEX DR 500 MG TAB PO SCH (22:14)
[2020-01-25] MEDS: ENOXAPARIN 40 MG/0.4 ML INJ SUB-Q SCH (22:15)
[2020-01-26] MEDS: ACETAMINOPHEN 325 MG TAB PO PRN (08:24)
[2020-01-26 08:26] LABS: Basophils % (Auto) 0.2 % (0.0-1.8); Eosinophils # (Auto) 0.1 K/mm3 (0.0-0.4); Eosinophils % (Auto) 0.5 % (0.0-4.3); Hematocrit 34.7 % (30.3-42.9); Hemoglobin 11.3 gm/dl (10.1-14.3); Lymphocytes # (Auto) 3.1 K/mm3 (1.2-5.4); Lymphocytes % (Auto) 25.3 % (13.4-35.0); Mean Corpuscular HGB Conc 33 % (30-34); Mean Corpuscular Volume 78 fl (79-97); Monocytes # (Auto) 0.8 K/mm3 (0.0-0.8); Monocytes % (Auto) 6.5 % (0.0-7.3); Platelet Count 326 K/mm3 (140-440); Red Blood Count 4.43 M/mm3 (3.65-5.03); Red Cell Distribution Width 16.5 % (13.2-15.2)
[2020-01-26 09:28] LABS: BUN/Creatinine Ratio 19; Blood Urea Nitrogen 19 mg/dL (7-17); Calcium 9.3 mg/dL (8.4-10.2); Hemolysis Index 0
[2020-01-26] MEDS ORDERED: FLUTICASONE PROPIONATE InNostril SCH (10:00)
[2020-01-26 10:16] LABS: INR 1.1 (0.87-1.13)
[2020-01-26] MEDS: FLUTICASONE PROPIONATE NASAL SPRAY 16 GM NS SCH (10:35)
[2020-01-26] MEDS: ASPIRIN EC 325 MG TAB PO SCH (10:35)
[2020-01-26] MEDS: DIVALPROEX DR 500 MG TAB PO SCH ×2 (10:35→21:34)
[2020-01-26] MEDS: LISINOPRIL 20 MG TAB PO SCH (10:35)
[2020-01-26] MEDS: MORPHINE 4 MG/1 ML INJ IV PRN ×3 (10:41→23:21)
--- NOTE | 2020-01-26 10:54 | Progress Note ---
Assessment and Plan Currently stable cardiac status. Chest pain currently resolved. AMI r/o. S/p lexiscan MPI stress test yesterday which was negative. tte is pending. Pt appears alert and oriented today, no apparent AMS or focal deficits on evaluation. Head CT with NAF. Neurology consultation pending. Pending echo does not show any significant abnormalities, nothing further to add from cardiac perspective at this time. Will sign off. Recommend pt follow up in our office with Dr. Sotomayor within 2 weeks of discharge ([phone]). The patient has been seen in conjunction with Dr. Bria Reynolds who agrees with the assessment and plan of care. - Patient Problems (1) Chest pain Current Visit: Yes Status: Resolved (2) Altered mental state Current Visit: Yes Status: Acute Qualifiers: Altered mental status type: transient alteration of awareness Qualified Code(s): R40.4 - Transient alteration of awareness (3) HTN (hypertension) Current Visit: Yes Status: Chronic (4) Hyperlipidemia Current Visit: Yes Status: Chronic (5) Bipolar disorder Current Visit: Yes Status: Chronic (6) Schizophrenia Current Visit: Yes Status: Chronic (7) Elevated d-dimer Current Visit: Yes Status: Acute Plan to address problem: chest CTA negative for PE, NAF Subjective Date of service: 01/26/20 Principal diagnosis: cp Interval history: pt resting in bed, alert, no current cardiac complaints. undergoing EEG. in SR on tele. Objective Last Vital Signs Temp 98.4 F 01/26/20 08:02 Pulse 68 01/26/20 10:35 Resp 20 01/26/20 08:02 BP 122/79 01/26/20 10:35 Pulse Ox 92 01/26/20 08:02 - Physical Examination General: No Apparent Distress HEENT: Positive: PERRL, Normocephaly, Mucus Membranes Moist Neck: Positive: neck supple, trachea midline Cardiac: Positive: Reg Rate and Rhythm, S1/S2 Lungs: Positive: Decreased Breath Sounds Neuro: Positive: Grossly Intact Abdomen: Negative: Tender Skin: Negative: Rash Musculoskeletal: No Pain Extremities: Absent: edema - Labs and Meds Coagulation 01/26/20 Range/Units 07:22 PT 14.4 (12.2-14.9) Sec. INR 1.10 (0.87-1.13) CBC 01/26/20 Range/Units 07:22 WBC 12.1 H (4.5-11.0) K/mm3 RBC 4.43 (3.65-5.03) M/mm3 Hgb 11.3 (10.1-14.3) gm/dl Hct 34.7 (30.3-42.9) % Plt Count 326 (140-440) K/mm3 Lymph # (Auto) 3.1 (1.2-5.4) K/mm3 [place] # (Auto) 0.8 (0.0-0.8) K/mm3 Eos # (Auto) 0.1 (0.0-0.4) K/mm3 Baso # (Auto) 0.0 (0.0-0.1) K/mm3 Comprehensive Metabolic Panel 01/26/20 Range/Units 07:22 Sodium 141 (137-145) mmol/L Potassium 3.8 (3.6-5.0) mmol/L Chloride 100.8 (98-107) mmol/L Carbon Dioxide 31 H D (22-30) mmol/L BUN 19 H (7-17) mg/dL Creatinine 1.0 (0.6-1.2) mg/dL Glucose 96 (65-100) mg/dL Calcium 9.3 (8.4-10.2) mg/dL - Imaging and Cardiology EKG: report reviewed, image reviewed Pharmacologic stress test: report reviewed Echo: pending - Telemetry EKG Rhythm: Sinus Rhythm
[2020-01-26] MEDS ORDERED: oxyCODONE /ACETAMINOPHEN 5-325MG TAB PO PRN (11:38)
--- NOTE | 2020-01-26 13:29 | Progress Note ---
Assessment and Plan Assessment and plan: --Seizure post Lexiscan Current Visit: Yes Status: Acute Plan to address problem: Patient had seizure post Cindy scan patient received IV Ativan No new episodes since then Patient was not postictal when she returned to the room Seizure precautions, IV Ativan as needed CT head without contrast, EEG, Neurology consult Patient gives history of seizure disorder many years ago Currently on Depakote, follow neuro consult, and follow EEG Do not drive --Acute chest pain/probably noncardiac Current Visit: Yes Status: Acute Plan to address problem: Stress test negative Noncardiac chest pain, probably due to GERD Cardiology following --HTN (hypertension) Current Visit: No Status: Chronic Plan to address problem: Blood pressure stable. We will resume routine home medications and monitor vital signs closely. --GERD;Protonix --DVT prophylaxis Current Visit: No Status: Acute . Plan to address problem: Patient placed on subcutaneous Lovenox. --Full code status Current Visit: Yes Status: Acute Will observe overnight if no seizure activity Follow neurology evaluation and recommendation Possible discharge in 1 to 2 days if stable Brief history; 64-year-old female patient was admitted with chest pain, evaluated by cardiology, underwent stress test After administration of Lexiscan patient had seizure-like episode, patient received aminophylline[Lexiscan reversal agent] And IV Ativan, patient was placed on seizure precautions, and Ativan as needed, patient gives history of seizure disorder On Depakote, stress test was negative for ischemia, neurology consulted ,awaiting evaluation,work-up and recommendations. Patient advised not to drive until cleared by neurology or PMD History Interval history: I have seen and examined the patient at the bedside patient's chart and medications reviewed No new episodes of seizures, awaiting neuro evaluation vital signs reviewed Hospitalist Physical - Constitutional Vitals: Temp Pulse Resp BP Pulse Ox 98.4 F 68 21 122/79 92 01/26/20 08:02 01/26/20 10:35 01/26/20 09:00 01/26/20 10:35 01/26/20 08:02 General appearance: Present: no acute distress, well-nourished - EENT Eyes: Present: PERRL, EOM intact - Neck Neck: Present: supple, normal ROM - Respiratory Respiratory effort: normal Respiratory: bilateral: diminished, negative: rales, rhonchi, wheezing - Cardiovascular Rhythm: regular Heart Sounds: Present: S1 & S2 - Extremities Extremities: no ischemia, No edema - Abdominal General gastrointestinal: soft, non-tender, non-distended, normal bowel sounds - Integumentary Integumentary: Present: clear, warm - Psychiatric Psychiatric: appropriate mood/affect, memory intact - Neurologic Neurologic: moves all extremities HEART Score - HEART Score EKG: Normal Age: 45-65 Risk factors: 1-2 risk factors Troponin: Troponin T < 0.010 ng/mL (0.00-0.029) 01/25/20 06:56 Troponin: < normal limit - Critical Actions Critical Actions: 0-3 pts:0.9-1.7%risk of adverse cardiac event.Candidate for discharge Results - Labs CBC & Chem 7: 01/26/20 07:22 01/26/20 07:22 Labs: Laboratory Last Values WBC 12.1 K/mm3 (4.5-11.0) H 01/26/20 07:22 RBC 4.43 M/mm3 (3.65-5.03) 01/26/20 07:22 Hgb 11.3 gm/dl (10.1-14.3) 01/26/20 07:22 Hct 34.7 % (30.3-42.9) 01/26/20 07:22 MCV 78 fl (79-97) L 01/26/20 07:22 MCH 26 pg (28-32) L 01/26/20 07:22 MCHC 33 % (30-34) 01/26/20 07:22 RDW 16.5 % (13.2-15.2) H 01/26/20 07:22 Plt Count 326 K/mm3 (140-440) 01/26/20 07:22 Lymph % (Auto) 25.3 % (13.4-35.0) 01/26/20 07:22 [place] % (Auto) 6.5 % (0.0-7.3) 01/26/20 07: Eos % (Auto) 0.5 % (0.0-4.3) 01/26/20 07:22 Baso % (Auto) 0.2 % (0.0-1.8) 01/26/20 07:22 Lymph # (Auto) 3.1 K/mm3 (1.2-5.4) 01/26/20 07:22 [place] # (Auto) 0.8 K/mm3 (0.0-0.8) 01/26/20 07:22 Eos # (Auto) 0.1 K/mm3 (0.0-0.4) 01/26/20 07:22 Baso # (Auto) 0.0 K/mm3 (0.0-0.1) 01/26/20 07:22 Seg Neutrophils % 67.5 % (40.0-70.0) 01/26/20 07: Seg Neutrophils # 8.2 K/mm3 (1.8-7.7) H 01/26/20 07:22 PT 14.4 Sec. (12.2-14.9) 01/26/20 07: INR 1.10 (0.87-1.13) 01/26/20 07:22 D-Dimer 498.40 ng/mlDDU (0-234) H 01/24/20 22:21 Sodium 141 mmol/L (137-145) 01/26/20 07:22 Potassium 3.8 mmol/L (3.6-5.0) 01/26/20 07:22 Chloride 100.8 mmol/L (98-107) 01/26/20 07:22 Carbon Dioxide 31 mmol/L (22-30) H D 01/26/20 07:22 Anion Gap 13 mmol/L 01/26/20 07:22 BUN 19 mg/dL (7-17) H 01/26/20 07:22 Creatinine 1.0 mg/dL (0.6-1.2) 01/26/20 07:22 Estimated GFR > 60 ml/min 01/26/20 07: BUN/Creatinine Ratio 19 % 01/26/20 07:22 Glucose 96 mg/dL (65-100) 01/26/20 07:22 POC Glucose 122 (70-105) H 01/25/20 11:32 Calcium 9.3 mg/dL (8.4-10.2) 01/26/20 07:22 Magnesium 2.10 mg/dL (1.7-2.3) 01/26/20 07:22 Troponin T < 0.010 ng/mL (0.00-0.029) 01/25/20 06:56 NT-Pro-B Natriuret Pep 43.95 pg/mL (0-900) 01/24/20 22:21 Rutledge/IV: Voiding Method Toilet IV Catheter Type [Right Peripheral IV Antecubital] Active Medications - Current Medications Current Medications: Generic Name Dose Route Start Last Admin Trade Name Freq PRN Reason Stop Dose Admin Acetaminophen 650 mg 01/25/20 01:18 01/26/20 08:24 Tylenol PO 650 mg Q4H PRN Administration Pain MILD(1-3)/Fever >100.5/JIMENES Aspirin 325 mg 01/26/20 10:00 01/26/20 10:35 Ecotrin PO 325 mg QDAY WALE Administration Divalproex Sodium 500 mg 01/25/20 22:00 01/26/20 10:[address] PO 500 mg BID WALE Administration Enoxaparin Sodium 40 mg 01/25/20 22:00 01/25/20 22:15 Enoxaparin SUB-Q 40 mg QDAY@2200 WALE Administration Protocol Fluticasone Propionate 50 mcg 01/26/20 10:00 01/26/20 10:35 Flonase NS 50 mcg QDAY WALE Administration Lisinopril 20 mg 01/26/20 10:00 01/26/20 10:35 Zestril PO 20 mg QDAY WALE Administration Lorazepam 2 mg 01/25/20 16:10 Ativan IV Q1H PRN Seizures Magnesium Hydroxide 30 ml 01/25/20 01:18 Milk Of Magnesia PO Q4H PRN Constipation Morphine Sulfate 2 mg 01/25/20 01:18 01/26/20 10:41 Morphine IV 2 mg Q5MIN PRN Administration Chest Pain Nitroglycerin 0.4 mg 01/25/20 01:18 Nitrostat SL Q5M PRN Chest Pain Ondansetron HCl 4 mg 01/25/20 01:18 Zofran IV Q8H PRN Nausea And Vomiting Oxycodone/Acetaminophen 1 tab 01/26/20 11:38 Percocet 5/325 PO Q6H PRN Pain, Moderate (4-6) Sodium Chloride 10 ml 01/25/20 10:00 01/26/20 10:36 Sodium Chloride Flush Syringe 10 Ml IV 10 ml BID WALE Administration Sodium Chloride 10 ml 01/25/20 01:18 Sodium Chloride Flush Syringe 10 Ml IV PRN PRN LINE FLUSH
--- NOTE | 2020-01-26 14:09 | Treadmill Report ---
NUCLEAR PERFUSION SCAN REFERRING PHYSICIAN: Hospitalist services. PROTOCOL: ____ Please see my prior note regarding stress note details. Nuclear perfusion imaging is examined carefully in the horizontal long axis, vertical long axis, short axis views. There is normal homogenous uptake radioisotope in all reported segments. No evidence of significant fixed or reversible perfusion defects, suggestive of prior infarction or ischemia. Gated wall motion was normal systolic thickening, calculated ejection fraction of 60%. No TID. CONCLUSIONS: 1. Normal myocardial perfusion scan without evidence of active ischemia or prior infarction. 2. Normal left ventricular systolic performance without evidence of transient ischemic dilatation or stress-induced segmental wall motion. JOB# [id number] DALILA/ALICIA
--- NOTE | 2020-01-26 15:20 | Consultation ---
History of Present Illness Consult date: 01/26/20 History of present illness: 64 yo female with htn, bipolar disorder, who presented initially with acute chest pain and underwent a Lexiscan study and at the end of the study was noted with a seizure event (description not clear). Patient notes a hx of similar event in the past and she states she was transferred to "the building next door". She has not been on any antiseizure medications in the past. Currently, she notes chest pain and a bad congested cough but deneis any neurologic symptoms, other than a minor headache since yesterday, with the chest pain. Past History Past Medical History: arthritis, GERD, hypertension, other (Panic attacks, Anxiety, Schizophrenia, Bipolar disorder) Past Surgical History: hysterectomy Social history: no significant social history Family history: no significant family history Medications and Allergies Allergies Allergy/AdvReac Type Severity Reaction Status Date / Time Penicillins Allergy Mild Unknown Verified 01/24/20 19:17 propoxyphene Allergy NAUSEA,VOMI Unverified 01/24/20 19:17 TING Home Medications Medication Instructions Recorded Confirmed Last Taken Type hydroCHLOROthiazide [HCTZ] 25 mg PO QDAY 01/09/14 01/25/20 1 Day Ago History ~01/24/20 Loratadine (Nf) [Claritin (Nf)] 10 mg PO QDAY 01/31/14 01/25/20 1 Day Ago History ~01/24/20 Montelukast [Singulair] 10 mg PO QHS #30 tablet 02/04/14 01/25/20 1 Day Ago Rx ~01/24/20 Albuterol Sulfate [Ventolin HFA] 2 puff IH Q4H PRN 01/10/15 01/25/20 1 Day Ago History ~01/24/20 Meclizine [Antivert] 50 mg PO BID 01/10/15 01/25/20 1 Day Ago History ~01/24/20 Omeprazole [PriLOSEC] 20 mg PO QDAY 01/10/15 01/25/20 1 Day Ago History ~01/24/20 PARoxetine [Paxil] 20 mg PO DAILY 01/10/15 01/25/20 1 Day Ago History ~01/24/20 Simvastatin (Nf) [Zocor TAB] 40 mg PO QHS 01/10/15 01/25/20 1 Day Ago History ~01/24/20 Ammonium Lactate/Emu Oil 1 tube PERCUTANEO BID 09/13/16 01/25/20 1 Day Ago History ~01/24/20 Fluticasone Propionate 1 spray INNOSTRIL DAILY 09/13/16 01/25/20 1 Day Ago History ~01/24/20 Gabapentin 100 mg TID PRN 09/13/16 01/25/20 1 Day Ago History ~01/24/20 lisinopriL [Zestril TAB] 20 mg PO QDAY 09/13/16 01/25/20 1 Day Ago History ~01/24/20 Ciprofloxacin HCl [Ciprofloxacin 500 mg PO Q12HR 3 Days tab 09/14/16 01/25/20 1 Day Ago Rx TAB] ~01/24/[address] [Holly Ceballos] 500 mg PO BID #1 tablet 09/14/16 01/25/20 1 Day Ago Rx ~01/24/20 Furosemide [Lasix TAB] 20 mg PO QDAY #1 tablet 09/14/16 01/25/20 1 Day Ago Rx ~01/24/20 Nortriptyline [Pamelor] 25 mg PO QDAY #1 capsule 09/14/16 01/25/20 1 Day Ago Rx ~01/24/20 risperiDONE [RisperDAL] 0.5 mg PO BID #1 tablet 09/14/16 01/25/20 1 Day Ago Rx ~01/24/20 Famotidine [Pepcid] 40 mg PO QHS #10 tablet 12/30/19 01/25/20 1 Day Ago Rx ~01/24/20 Pantoprazole [Protonix] 40 mg PO QDAY #30 tablet 12/30/19 01/25/20 1 Day Ago Rx ~01/24/20 Active Meds: Active Medications Acetaminophen (Tylenol) 650 mg PO Q4H PRN PRN Reason: Pain MILD(1-3)/Fever >100.5/JIMENES Last Admin: 01/26/20 08:24 Dose: 650 mg Documented by: Aspirin (Ecotrin) 325 mg PO QDAY [facility] Last Admin: 01/26/20 10:35 Dose: 325 mg Documented by: Divalproex Sodium (Holly Ceballos) 500 mg PO BID [facility] Last Admin: 01/26/20 10:35 Dose: 500 mg Documented by: Enoxaparin Sodium (Enoxaparin) 40 mg SUB-Q QDAY@2200 [facility]; Protocol Last Admin: 01/25/20 22:15 Dose: 40 mg Documented by: Fluticasone Propionate (Flonase) 50 mcg NS QDAY [facility] Last Admin: 01/26/20 10:35 Dose: 50 mcg Documented by: Lisinopril (Zestril) 20 mg PO QDAY [facility] Last Admin: 01/26/20 10:35 Dose: 20 mg Documented by: Lorazepam (Ativan) 2 mg IV Q1H PRN PRN Reason: Seizures Magnesium Hydroxide (Milk Of Magnesia) 30 ml PO Q4H PRN PRN Reason: Constipation Morphine Sulfate (Morphine) 2 mg IV Q5MIN PRN PRN Reason: Chest Pain Last Admin: 01/26/20 10:41 Dose: 2 mg Documented by: Nitroglycerin (Nitrostat) 0.4 mg SL Q5M PRN PRN Reason: Chest Pain Ondansetron HCl (Zofran) 4 mg IV Q8H PRN PRN Reason: Nausea And Vomiting Oxycodone/Acetaminophen (Percocet 5/325) 1 tab PO Q6H PRN PRN Reason: Pain, Moderate (4-6) Sodium Chloride (Sodium Chloride Flush Syringe 10 Ml) 10 ml IV BID [facility] Last Admin: 01/26/20 10:36 Dose: 10 ml Documented by: Sodium Chloride (Sodium Chloride Flush Syringe 10 Ml) 10 ml IV PRN PRN PRN Reason: LINE FLUSH Review of Systems All systems: negative (as per HPI;) Physical Examination - Vital Signs Vital Signs: Vital Signs Temp Pulse Resp BP Pulse Ox 98.0 F 103 H 18 118/70 96 01/24/20 19:22 01/24/20 19:22 01/24/20 19:22 01/24/20 19:22 01/24/20 19:22 - Additional Exam Additional Exam: Gen: nad, well-nourished; Head: normocephalic; Eyes: no gaze deviation; no ptosis; ENT: normal vocalization; CVS: warm and well-perfused; Pulm: no respiratory distress; +cough GI: non-distended, protuberant; Ext: no cyanosis or edema at distal extremities; Skin: no acute rash or hives at distal extremities; Heme: no pathologic bruising or ecchymosis at distal extremities; Neuro: alert, oriented to name, age, not month, no dysarthria, no aphasia, CN 2 - PERRL, visual anthony intact, CN 3, 4, 6 - EOMI, CN 5 - facial sensation decreased on right to light touch, CN 7 - facial movement symmetric, CN 8 - hearing grossly intact, CN 9, 10 - uvula midline, CN 11 - shrug symmetric, CN 12 - tongue midline; Motor - at least 4+/5 in all exts 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; Sensory - light touch decreased at right arm/leg, Cerebellar - fnf /hts intact, Gait - deferred secondary to fall risk; NIHSS (1a.) Level of Consciousness:0 (1b.) LOC Questions:1 (1c.) LOC Commands:0 (2.) Best Gaze:0 (3.) Visual:0 (4.) Facial Palsy:0 (5a.) Motor Arm, Left:0 (5b.) Motor Arm, Right:0 (6a.) Motor Leg, Left:0 (6b.) Motor Leg, Right:0 (7.) Limb Ataxia:0 (8.) Sensory:1 (9.) Best Language:0 (10.) Dysarthria:0 (11.) Extinction and Inattention:0 NIHSS Total Score: 1 Results - Laboratory Findings CBC and BMP: 01/26/20 07:22 01/26/20 07:22 Abnormal Lab Findings: Abnormal Labs 01/24/20 01/24/20 01/24/20 19:28 19:28 22:21 WBC MCV MCH 26 L RDW 16.1 H Lymph % (Auto) Nicholas % (Auto) 7.7 H Lymph # (Auto) Seg Neutrophils % Seg Neutrophils # D-Dimer 498.40 H Potassium 2.8 L* Carbon Dioxide BUN Glucose POC Glucose 01/25/20 01/25/20 01/25/20 01:38 01:38 11:32 WBC MCV MCH 26 L RDW 16.3 H Lymph % (Auto) 10.3 L Nicholas % (Auto) Lymph # (Auto) 1.0 L Seg Neutrophils % 87.0 H Seg Neutrophils # 8.3 H D-Dimer Potassium Carbon Dioxide BUN Glucose 163 H POC Glucose 122 H 01/26/20 01/26/20 07:22 07:22 WBC 12.1 H MCV 78 L MCH 26 L RDW 16.5 H Lymph % (Auto) Nicholas % (Auto) Lymph # (Auto) Seg Neutrophils % Seg Neutrophils # 8.2 H D-Dimer Potassium Carbon Dioxide 31 H D BUN 19 H Glucose POC Glucose Assessment and Plan 64 yo female p/w chest pain w/ an episode s/p Lexiscan concerning for possible seizure event. ddx: convulsive syncope vs. seizure vs. pseudoseizure; 1. Seizure - check EEG and MRI Max w/ wo contrast (seizure protocol); 2. TIA - possibly in the setting of Lexiscan testing; check CTA Head/Neck w/ wo contrast to r/o any dissection, stenosis, or occlusion. 3. Convulsive Syncope - check CTA Head/Neck w/ wo contrast; non-neurogenic workup per primary team. 4. Pseudoseizure - dx of exclusion. Ricardo Klein MD Neurology
--- NOTE | 2020-01-26 18:50 | Cat Scan Report ---
CTA NECK WITH CONTRAST 01/26/2020 INDICATION / CLINICAL INFORMATION: tia. COMPARISON: None. TECHNIQUE: Routine CTA of the neck is performed. 3-D/MIP reformats were postprocessed. Percentage st enosis is determined by direct quantitative measurements of diseased internal carotid artery diameter compared with normal distal internal carotid artery reference segments or by criteria similar to MAYO CET where applicable. All CT scans at this location are performed using CT dose reduction for ALARA b y means of automated exposure control. CONTRAST: 100 ml of Isovue 370 FINDINGS: Carotid bifurcations: No evidence of carotid bifurcation stenosis. Carotid arteries: No significant abnormality. Cervical vertebral arteries: No significant abnormality. Aortic arch: No significant abnormality. Incidental note is made of a somewhat lobulated 3.3 cm left thyroid nodule. IMPRESSION: No significant abnormality. INCIDENTAL THYROID NODULE RECOMMENDATIONS Nonpalpable nodules detected on US or other anatomic imaging studies are termed incidentally discover ed nodules or incidentalomas. Nonpalpable nodules have the same risk of malignancy as palpable nodule s with the same size. Generally, only nodules >1 cm should be evaluated, since they have a greater po tential to be clinically significant cancers. (QUENTIN, 2009). Follow up for incidental thyroid nodules <1 cm is not recommended. In patients <35 years with an incidental thyroid nodule detected on CT, MRI, or extrathyroidal ultras ound, dedicated thyroid ultrasound is recommended if the nodule is 1 cm, has no suspicious imaging fe atures, and if the patient has normal life expectancy. In patients 35 years with an incidental thyroid nodule detected on CT, MRI, or extrathyroidal ultraso und, dedicated thyroid ultrasound is recommended if the nodule is 1.5 cm, has no suspicious imaging f eatures, and if the patient has normal life expectancy. Signer Name: Roberto Ramirez MD Signed: 01/26/2020 6:46 PM Workstation Name: [id number]
--- NOTE | 2020-01-26 18:54 | Cat Scan Report ---
HEAD CT ANGIOGRAM 01/26/2020 HISTORY: TIA FINDINGS: Contrast-enhanced CT angiographic images of the intracranial circulation were obtained. In addition to the axial images, sagittal and coronal reformatted images were obtained. In addition, 3 p lee ann MIP reconstructions were produced. There is no evidence of vessel occlusion or stenosis. Anterior circulation is unremarkable. The vertebrobasilar system is slightly hypoplastic on a developmental basis, with prominent posterior communicating artery noted. Major dural venous structures are unremarkable. IMPRESSION: No significant abnormality. All CT scans at this location are performed using dose reduction to ALARA by means of automated expos ure control. Signer Name: Roberto Ramirez MD Signed: 01/26/2020 6:49 PM Workstation Name: [id number]
[2020-01-26] MEDS: ENOXAPARIN 40 MG/0.4 ML INJ SUB-Q SCH (21:34)
[2020-01-27] MEDS: MORPHINE 4 MG/1 ML INJ IV PRN ×2 (03:35→16:32)
[2020-01-27] MEDS: ASPIRIN EC 325 MG TAB PO SCH (09:35)
[2020-01-27] MEDS: DIVALPROEX DR 500 MG TAB PO SCH (09:35)
[2020-01-27] MEDS: FLUTICASONE PROPIONATE NASAL SPRAY 16 GM NS SCH (09:35)
[2020-01-27] MEDS: LISINOPRIL 20 MG TAB PO SCH (09:36)
--- NOTE | 2020-01-27 10:40 | Discharge Summary ---
Providers - Providers Date of Admission: 01/25/20 01:03 Attending physician: BINDU HOFFMAN MD 01/25/20 Consult to Cardiac Rehabilitation [CONS] Routine Reason For Exam: Phase I 01/25/20 01:19 Consult to Cardiology [CONS] Routine Consulting Provider: CHRIS HANNA Reason For Exam: chest pain 01/25/20 16:08 Consult to Physician [CONS] Routine Comment: Consulting Provider: MANUELA MENDOZA Physician Instructions: Reason For Exam: Seizures Primary care physician: JEAN-CLAUDE PETTY Hospitalization Reason for admission: chest pain Condition: Stable Hospital course: 64-year-old female patient was admitted with chest pain, evaluated by cardiology, underwent stress test After administration of Lexiscan patient had seizure-like episode, patient received aminophylline[Lexiscan reversal agent] And IV Ativan, patient was placed on seizure precautions, and Ativan as needed, patient gives history of seizure disorder On Depakote, stress test was negative for ischemia, neurology consulted ,awaiting evaluation,work-up and recommendations. Patient advised not to drive until cleared by neurology or PMD EEG Negative MRI negative Advised not to drive, which patient is already aware of until seen by her primary doctor. CTA negative Neurology input noted --Seizure post Lexiscan Current Visit: Yes Status: Acute Plan to address problem: Patient had seizure post Cindy scan patient received IV Ativan No new episodes since then Patient was not postictal when she returned to the room Seizure precautions, IV Ativan as needed CT head without contrast, EEG, Neurology consult Patient gives history of seizure disorder many years ago Currently on Depakote, follow neuro consult, and follow EEG Do not drive --Acute chest pain/probably noncardiac Current Visit: Yes Status: Acute Plan to address problem: Stress test negative Noncardiac chest pain, probably due to GERD Cardiology following --HTN (hypertension) Current Visit: No Status: Chronic Plan to address problem: Blood pressure stable. We will resume routine home medications and monitor vital signs closely. --GERD;Protonix Disposition: [id number] HOME UNDER HOME HL Time spent for discharge: 35 mins Core Measure Documentation - Palliative Care Palliative Care/ Comfort Measures: Not Applicable - Core Measures Any of the following diagnoses?: none Exam - Physical Exam Narrative exam: VITAL SIGNS: Reviewed. GENERAL: The patient appears normally developed, Vital signs as documented. HEAD: No signs of head trauma. EYES: Pupils are equal. Extraocular motions intact. EARS: Hearing grossly intact. MOUTH: Oropharynx is normal. NECK: No adenopathy, no JVD. CHEST: Chest with clear breath sounds bilaterally. No wheezes, rales, or rhonchi. CARDIAC: Regular rate and rhythm. S1 and S2, without murmurs, gallops, or rubs. VASCULAR: No Edema. Peripheral pulses normal and equal in all extremities. ABDOMEN: Soft, non tender and non distended. No rebound or guarding, and no masses palpated. Bowel Sounds normal. MUSCULOSKELETAL: Good range of motion of all major joints. Extremities without clubbing, cyanosis or edema. NEUROLOGIC EXAM: Alert and oriented x 3 No focal sensory or strength deficit s. Speech normal. Follows commands. PSYCHIATRIC: Mood normal. SKIN: detail exam as documented in skin assessment - Constitutional Vitals: Temp Pulse Resp BP Pulse Ox 97.3 F L 85 19 127/79 93 01/27/20 07:29 01/27/20 09:36 01/27/20 07:29 01/27/20 09:36 01/27/20 07:29 Plan Activity: no driving until cleared by PCP Diet: low fat Special Instructions: record daily weights, record daily BP diary Additional Instructions: Follow with Primary Psych within one week. Needs the primary doctor to review all meds Follow up with: [facility] [Outside] - 7 Days JEAN-CLAUDE PETTY MD [Primary Care Provider] - 3-5 Days LINETTE CODY MD [Staff Physician] - 7 Days NATE AGUILAR MD [Staff Physician] - 7 Days Prescriptions: Aspirin [Adult Aspirin] 81 mg PO DAILY #30 tablet.
--- NOTE | 2020-01-27 12:23 | Magnetic Resonance Report ---
MRI BRAIN WITHOUT AND WITH CONTRAST INDICATION / CLINICAL INFORMATION: Seizure. TECHNIQUE: Multiplanar, multisequence MR images of the brain were obtained. Contrast: MultiHance: 18 mL administered intravenously. COMPARISON: Head CT 01/25/2020 FINDINGS: BRAIN / INTRACRANIAL CONTENTS: Ventricles and cortical sulci are normal in size and configuration. Th ere is no mass effect. No evidence of intracranial hemorrhage or extra-axial fluid collection is seen . Occasional nonspecific foci of white matter hyperintensity are seen in the frontal lobes bilaterall y. No significant areas of abnormal brain parenchymal signal intensity are identified. There is no in dication of remote cortical infarction. Diffusion weighted scans are negative. There is no indication of acute ischemic injury. The brainstem has an unremarkable appearance. Mild cerebellar atrophy is noted. MIDLINE STRUCTURES:No abnormalities are seen to involve the pituitary gland. Pineal region has an unr emarkable appearance. CRANIOCERVICAL JUNCTION: No abnormalities are identified at the craniocervical junction. VASCULAR FLOW-VOIDS: Normal flow-voids are present within the major intracranial vessels. ORBITS: The orbits have an unremarkable appearance. SINUSES / MASTOIDS: There is no indication of inflammatory disease in the paranasal sinuses or mastoi d air cells. Contrast administration: Following administration of intravenous contrast material there is enhanceme nt of normal vascular structures. No areas of abnormal contrast enhancement are identified. IMPRESSION: 1. No significant abnormality on MRI brain without and with intravenous contrast.. Signer Name: Adeel Mederos MD Signed: 01/27/2020 12:19 PM Workstation Name: [id number]
[2020-01-27 16:23] VITALS: BP 114/82
[2020-01-27] MEDS ORDERED: SIMETHICONE 80 MG CHEW TAB PO ONE (17:21)
== END 2020-01-27 18:05 | disposition home health service (06) ==
LOC: ED 19:10 → 4A 01-25 01:03
PROVIDERS: ADMIT Internal Medicine Geriatric Medicine; ATTEND Internal Medicine
DX: G45.9 Transient cerebral ischemic attack, unspecified (principal); R07.89 Other chest pain; I10 Essential (primary) hypertension; F41.0 Panic disorder [episodic paroxysmal anxiety]; M19.90 Unspecified osteoarthritis, unspecified site; K21.9 Gastro-esophageal reflux disease without esophagitis; J44.9 Chronic obstructive pulmonary disease, unspecified; R56.9 Unspecified convulsions; R29.701 NIHSS score 1; F41.9 Anxiety disorder, unspecified; F31.9 Bipolar disorder, unspecified; R41.82 Altered mental status, unspecified; R55 Syncope and collapse; R74.8 Abnormal levels of other serum enzymes; F20.9 Schizophrenia, unspecified; Z90.710 Acquired absence of both cervix and uterus; Z79.82 Long term (current) use of aspirin; Z79.899 Other long term (current) drug therapy
CPT/HCPCS: 36415; 70450; 70496; 70498; 70553; 71046; 71275; 78452; 80048; 82962; 83735; 83880; 84484; 85025; 85379; 85610; 93005; 93017; 93306; 94644; 95819; 96361; 96372; 96374; 96375; 96376; 99285; A9502; A9577; G0378; J0280; J1650; J2060; J2270; J2785; J2930; J3480; J7030; Q9967

== ENCOUNTER 2020-02-04 17:56 | Emergency (ER) | payer MEDICARE ==
[2020-02-04] MEDS ORDERED: ASPIRIN 325 MG TAB PO ONE (18:05)
[2020-02-04 18:40] LABS: Basophils # (Auto) 0.1 K/mm3 (0.0-0.1); Basophils % (Auto) 0.5 % (0.0-1.8); Eosinophils # (Auto) 0.1 K/mm3 (0.0-0.4); Eosinophils % (Auto) 1.2 % (0.0-4.3); Hemoglobin 11.8 gm/dl (10.1-14.3); Lymphocytes # (Auto) 2.6 K/mm3 (1.2-5.4); Lymphocytes % (Auto) 25.3 % (13.4-35.0); Mean Corpuscular HGB Conc 34 % (30-34); Mean Corpuscular Volume 78 fl (79-97); Monocytes % (Auto) 10.1 % (0.0-7.3); Platelet Count 251 K/mm3 (140-440); Red Blood Count 4.47 M/mm3 (3.65-5.03); Red Cell Distribution Width 16.6 % (13.2-15.2)
[2020-02-04 18:57] LABS: BUN/Creatinine Ratio 12; Blood Urea Nitrogen 16 mg/dL (7-17); Calcium 9.3 mg/dL (8.4-10.2); Hemolysis Index 5
--- NOTE | 2020-02-04 19:09 | XRay Report ---
CHEST PA AND LATERAL VIEWS INDICATION: Chest Pain. COMPARISON: 01/24/2020 FINDINGS: Support devices: None Heart: Normal and unchanged Lungs/Pleura: No acute pulmonary or pleural findings. IMPRESSION: 1. No significant abnormality and no interval change. Signer Name: Juan Boyd MD Signed: 02/04/2020 7:05 PM Workstation Name: [id number]
[2020-02-04] MEDS ORDERED: ACETAMINOPHEN 500 MG TAB PO ONE (20:35)
[2020-02-04] MEDS ORDERED: IBUPROFEN 400 MG TAB PO ONE (20:35)
--- NOTE | 2020-02-04 20:36 | Emergency Department Report ---
ED General Adult HPI - General Chief complaint: Chest Pain Stated complaint: CHEST PAIN PUI?: No Time Seen by Provider: 02/04/20 20:06 Source: patient, family, RN notes reviewed, old records reviewed Mode of arrival: Ambulatory Limitations: No Limitations - History of Present Illness Initial comments: The patient was evaluated in the emergency department for symptoms described in the history of present illness. He/she was evaluated in the context of the global COVID-19 pandemic, which necessitated consideration that the patient might be at risk for infection with the virus that causes COVID-19. Institutional protocols and algorithms that pertain to the evaluation of patients at risk for COVID-19 are in a state of rapid change based on information released by regulatory bodies including the CDC and federal and state organizations. These policies and algorithms were followed during the patient's care in the emergency department. Please note that these policies, procedures and recommendations changed on a rapid basis. During the history and physical examination, I am chaperoned by nurse Katelynn Short Recent objective diagnostic testing at this hospital Transthoracic echocardiogram, January 2020: Ejection fraction 60 to 65%. LV wall motion and contractility within normal limits. CT scan of the chest x2, negative for pulmonary embolism, January 23, December 27, 2019 Recent MRI at this hospital, negative for acute findings. Recent EEG, negative for acute findings. Cardiac catheterization, 2013, negative for coronary artery disease. Nuclear stress test, January 25, 2020, negative for acute findings. Recently seen by cardiology at this hospital, cleared from a cardiac risk ratification perspective. Patient is a 64-year-old female presenting with recurrent anterior chest wall pain. It is associated with a dry cough. There is no vomiting, diaphoresis, posterior leg pain, posterior leg pain, new or different exertional shortness of breath. Pain increases with palpation, range of motion, and rest. Some improvement with Motrin, and acetaminophen. -: Gradual, days(s) Location: chest Radiation: non-radiation Quality: aching Improves with: rest Worsens with: movement, other (Palpation) - Related Data Home Medications Medication Instructions Recorded Confirmed Last Taken hydroCHLOROthiazide [HCTZ] 25 mg PO QDAY 01/09/14 01/25/20 1 Day Ago ~01/24/20 Loratadine (Nf) [Claritin (Nf)] 10 mg PO QDAY 01/31/14 01/25/20 1 Day Ago ~01/24/20 Albuterol Sulfate [Ventolin HFA] 2 puff IH Q4H PRN 01/10/15 01/25/20 1 Day Ago ~01/24/20 Meclizine [Antivert] 50 mg PO BID 01/10/15 01/25/20 1 Day Ago ~01/24/20 PARoxetine [Paxil] 20 mg PO DAILY 01/10/15 01/25/20 1 Day Ago ~01/24/20 Ammonium Lactate/Emu Oil 1 tube PERCUTANEO BID 09/13/16 01/25/20 1 Day Ago ~01/24/20 Fluticasone Propionate 1 spray INNOSTRIL DAILY 09/13/16 01/25/20 1 Day Ago ~01/24/20 Gabapentin 100 mg TID PRN 09/13/16 01/25/20 1 Day Ago ~01/24/20 lisinopriL [Zestril TAB] 20 mg PO QDAY 09/13/16 01/25/20 1 Day Ago ~01/24/20 Previous Rx's Medication Instructions Recorded Last Taken Type Montelukast [Singulair] 10 mg PO QHS #30 tablet 02/04/14 1 Day Ago Rx ~01/24/20 Divalproex [Holly Ceballos] 500 mg PO BID #1 tablet 09/14/16 1 Day Ago Rx ~01/24/20 Nortriptyline [Pamelor] 25 mg PO QDAY #1 capsule 09/14/16 1 Day Ago Rx ~01/24/20 risperiDONE [RisperDAL] 0.5 mg PO BID #1 tablet 09/14/16 1 Day Ago Rx ~01/24/20 Famotidine [Pepcid] 40 mg PO QHS #10 tablet 12/30/19 1 Day Ago Rx ~01/24/20 Aspirin [Adult Aspirin] 81 mg PO DAILY #30 tablet. 01/27/20 Unknown Rx Allergies Allergy/AdvReac Type Severity Reaction Status Date / Time Penicillins Allergy Mild Unknown Verified 01/24/20 19:17 propoxyphene Allergy NAUSEA,VOMI Unverified 01/24/20 19:17 TING ED Review of Systems ROS: Stated complaint: CHEST PAIN Other details as noted in HPI Constitutional: denies: fever Eyes: denies: eye discharge ENT: congestion Respiratory: cough Cardiovascular: chest pain Gastrointestinal: denies: abdominal pain, nausea, vomiting, hematemesis, melena, hematochezia Musculoskeletal: myalgia Neurological: denies: weakness Psychiatric: anxiety. denies: homicidal thoughts, suicidal thoughts ED Past Medical Hx - Past Medical History Previous Medical History?: Yes Hx Hypertension: Yes Hx Congestive Heart Failure: No Hx Diabetes: No Hx Arthritis: Yes Hx Headaches / Migraines: Yes Hx Psychiatric Treatment: Yes (Anxiety, Bipolar, Schizophrenia, Panic Attacks) Hx Asthma: Yes (has cough, states it is from a scratchy throat and that lungs feel fine) Hx COPD: Yes Hx HIV: No Additional medical history: anxiety - Surgical History Past Surgical History?: Yes Hx Appendectomy: Yes Additional Surgical History: Hysterectomy - Social History Smoking Status: Former Smoker Substance Use Type: Prescribed - Medications Home Medications: Home Medications Medication Instructions Recorded Confirmed Last Taken Type hydroCHLOROthiazide [HCTZ] 25 mg PO QDAY 01/09/14 01/25/20 1 Day Ago History ~01/24/20 Loratadine (Nf) [Claritin (Nf)] 10 mg PO QDAY 01/31/14 01/25/20 1 Day Ago History ~01/24/20 Montelukast [Singulair] 10 mg PO QHS #30 tablet 02/04/14 01/25/20 1 Day Ago Rx ~01/24/20 Albuterol Sulfate [Ventolin HFA] 2 puff IH Q4H PRN 01/10/15 01/25/20 1 Day Ago History ~01/24/20 Meclizine [Antivert] 50 mg PO BID 01/10/15 01/25/20 1 Day Ago History ~01/24/20 PARoxetine [Paxil] 20 mg PO DAILY 01/10/15 01/25/20 1 Day Ago History ~01/24/20 Ammonium Lactate/Emu Oil 1 tube PERCUTANEO BID 09/13/16 01/25/20 1 Day Ago History ~01/24/20 Fluticasone Propionate 1 spray INNOSTRIL DAILY 09/13/16 01/25/20 1 Day Ago History ~01/24/20 Gabapentin 100 mg TID PRN 09/13/16 01/25/20 1 Day Ago History ~01/24/20 lisinopriL [Zestril TAB] 20 mg PO QDAY 09/13/16 01/25/20 1 Day Ago History ~01/24/20 Divalproex [Depsuma Ceballos] 500 mg PO BID #1 tablet 09/14/16 01/25/20 1 Day Ago Rx ~01/24/20 Nortriptyline [Pamelor] 25 mg PO QDAY #1 capsule 09/14/16 01/25/20 1 Day Ago Rx ~01/24/20 risperiDONE [RisperDAL] 0.5 mg PO BID #1 tablet 09/14/16 01/25/20 1 Day Ago Rx ~01/24/20 Famotidine [Pepcid] 40 mg PO QHS #10 tablet 12/30/19 01/25/20 1 Day Ago Rx ~01/24/20 Aspirin [Adult Aspirin] 81 mg PO DAILY #30 tablet. 01/27/20 Unknown Rx ED Physical Exam - General Limitations: No Limitations General appearance: alert, anxious, obese - Head Head exam: Present: atraumatic, normocephalic - Eye Eye exam: Present: normal appearance, EOMI. Absent: nystagmus - ENT ENT exam: Present: normal exam, normal orophraynx, mucous membranes moist, normal external ear exam - Neck Neck exam: Present: normal inspection, full ROM. Absent: tenderness, meningismus - Respiratory Respiratory exam: Present: normal lung sounds bilaterally, chest wall tenderness. Absent: respiratory distress, wheezes, rales, rhonchi, stridor - Cardiovascular Cardiovascular Exam: Present: regular rate, normal rhythm, normal heart sounds. Absent: bradycardia, tachycardia, irregular rhythm, systolic murmur, diastolic murmur, rubs, gallop - GI/Abdominal GI/Abdominal exam: Present: soft, normal bowel sounds. Absent: distended, tenderness, guarding, rebound, rigid, pulsatile mass - Extremities Exam Extremities exam: Present: normal inspection, full ROM, other (2+ pulses noted in the bilateral upper and lower extremities. There is no palpable cord. negative Homans sign. Muscular compartments are soft. The pelvis is stable.). Absent: pedal edema, calf tenderness - Back Exam Back exam: Present: normal inspection, full ROM. Absent: tenderness, CVA tenderness (R), CVA tenderness (L), paraspinal tenderness, vertebral tenderness - Neurological Exam Neurological exam: Present: alert, normal gait, other (No facial droop. Tongue midline. Extraocular movements intact bilaterally. Facial sensation intact to light touch in V1, V2, V3 distribution bilaterally. 5 and a 5 strength in 4 extremities. Sensation intact to light touch in 4 extremities.). Absent: motor sensory deficit - Psychiatric Psychiatric exam: Present: anxious - Skin Skin exam: Present: warm, dry, intact, normal color. Absent: rash ED Course Vital Signs 02/04/20 02/04/20 18:01 20:24 Temperature 98.2 F Pulse Rate 106 H 81 Respiratory 22 18 Rate Blood Pressure 106/77 Blood Pressure 103/68 [Right] O2 Sat by Pulse 96 97 Oximetry ED Medical Decision Making - Lab Data Result diagrams: 02/04/20 18:17 02/04/20 18:17 Vital Signs 02/04/20 02/04/20 18:01 20:24 Temperature 98.2 F Pulse Rate 106 H 81 Respiratory 22 18 Rate Blood Pressure 106/77 Blood Pressure 103/68 [Right] O2 Sat by Pulse 96 97 Oximetry Lab Results 02/04/20 02/04/20 Range/Units 18:17 18:17 WBC 10.3 (4.5-11.0) K/mm3 RBC 4.47 (3.65-5.03) M/mm3 Hgb 11.8 (10.1-14.3) gm/dl Hct 35.0 (30.3-42.9) % MCV 78 L (79-97) fl MCH 26 L (28-32) pg MCHC 34 (30-34) % RDW 16.6 H (13.2-15.2) % Plt Count 251 (140-440) K/mm3 Lymph % (Auto) 25.3 (13.4-35.0) % [place] % (Auto) 10.1 H (0.0-7.3) % Eos % (Auto) 1.2 (0.0-4.3) % Baso % (Auto) 0.5 (0.0-1.8) % Lymph # (Auto) 2.6 (1.2-5.4) K/mm3 [place] # (Auto) 1.0 H (0.0-0.8) K/mm3 Eos # (Auto) 0.1 (0.0-0.4) K/mm3 Baso # (Auto) 0.1 (0.0-0.1) K/mm3 Seg Neutrophils % 62.9 (40.0-70.0) % Seg Neutrophils # 6.5 (1.8-7.7) K/mm3 Sodium 139 (137-145) mmol/L Potassium 3.4 L (3.6-5.0) mmol/L Chloride 99.5 (98-107) mmol/L Carbon Dioxide 27 (22-30) mmol/L Anion Gap 16 mmol/L BUN 16 (7-17) mg/dL Creatinine 1.3 H (0.6-1.2) mg/dL Estimated GFR 50 ml/min BUN/Creatinine Ratio 12 % Glucose 87 (65-100) mg/dL Calcium 9.3 (8.4-10.2) mg/dL Troponin T < 0.010 (0.00-0.029) ng/mL - EKG Data -: EKG Interpreted by Nm EKG shows normal: sinus rhythm Rate: normal - EKG Data When compared to previous EKG there are: no significant change 02/04/20 20:41 EKG today shows a sinus rhythm, 90 bpm, normal axis, normal intervals, unremarkable EKG, not a STEMI, unchanged from prior EKG from January 26, 2020 - Radiology Data Radiology results: pending, report reviewed, image reviewed Print Report Referring Physician: ROBIN JO Patient Name: SCOTTIE MORALES Date of : 1955 Sex: Female Report Date: 2020-02-04 Report Status: Finalized Findings [facility] [address] [place] [address] XRay Report Signed Patient: SCOTTIE MORALES MR#: [id number] 6 : 1955 Acct:[id number] Age/Sex: 64 / F ADM Date: 02/04/20 Loc: ED Attending Dr: Ordering Physician: ROBIN JO MD Date of Service: 02/04/20 Procedure(s): XR chest routine 2V Accession Number(s): [id number] cc: ED MD SANDRO Fluoro Time In Minutes: CHEST PA AND LATERAL VIEWS INDICATION: Chest Pain. COMPARISON: 01/24/2020 FINDINGS: Support devices: None Heart: Normal and unchanged Lungs/Pleura: No acute pulmonary or pleural findings. IMPRESSION: 1. No significant abnormality and no interval change. Signer Name: Juan Boyd MD Signed: 02/04/2020 7:05 PM Workstation Name: [id number] Transcribed By: TM Dictated By: Juan Boyd MD Electronically Authenticated By: Juan Boyd MD Signed Date/Time: 02/04/201904 DD/ 02 TD/TT: - Medical Decision Making Differential diagnosis, including but not limited to: Costochondritis, br onchitis, pneumonia Assessment and plan: 64-year-old female, who is afebrile, with reassuring vital signs, resolved tachycardia, not currently tachypneic, or hypoxic, I find her to be low risk by Wells criteria, with exquisitely reproducible chest wall pain. Patient's had multiple extensive objective evaluations at this hospital all within the recent past. Patient was recently cleared by cardiology within the past month from a cardiac risk ratification perspective. Laboratory studies were ordered prior to my personal evaluation of this patient and they are reviewed and appreciated. Patient counseled that she most likely has costochondritis, therefore, rest, ice, compression, elevation, alternate Tylenol/Motrin, may follow-up with outpatient primary care. Critical care attestation.: If time is entered above; I have spent that time in minutes in the direct care of this critically ill patient, excluding procedure time. ED Disposition Clinical Impression: Chest wall pain Disposition: DC-01 TO HOME OR SELFCARE Is pt being admited?: No Does the pt Need Aspirin: No Condition: Stable Instructions: Costochondritis (ED) Additional Instructions: Rest, avoid heavy lifting, and strenuous physical activities. Patient may alternate ibuprofen, [id number], 400 mg with food, every 6 hours as needed for pain, with acetaminophen, [id number], 650 mg, every 4-6 hours as needed for pain, maximum daily dose of Tylenol to not exceed 3 g per 24 hours. Patient may alternate ice packs, heat packs, compression and elevation as needed for chest wall pain. Follow-up with a primary care doctor within the next 2 to 3 weeks. Please return to the emergency room right away with new pain, worsened pain, migration of pain, projectile vomiting, change in mental status, confusion, inability to tolerate liquid feeds, new, worsened or different symptoms not present on the initial emergency room evaluation. Referrals: KYLAH NICHOLSON MD [Staff Physician] - as needed
[2020-02-04] MEDS ORDERED: POTASSIUM CHLORIDE ER 20 MEQ TAB PO ONE (20:40)
[2020-02-04 21:35] VITALS: BP 125/77
== END 2020-02-04 21:05 | disposition home or self-care (01) ==
LOC: ED 17:56
DX: R07.89 Other chest pain (principal); R05 Cough; I10 Essential (primary) hypertension; M19.91 Primary osteoarthritis, unspecified site; G43.909 Migraine, unspecified, not intractable, without status migrainosus; F41.9 Anxiety disorder, unspecified; F20.9 Schizophrenia, unspecified; J44.9 Chronic obstructive pulmonary disease, unspecified; Z90.49 Acquired absence of other specified parts of digestive tract; Z90.710 Acquired absence of both cervix and uterus; Z87.891 Personal history of nicotine dependence; Z79.899 Other long term (current) drug therapy; Z88.0 Allergy status to penicillin; Z88.8 Allergy status to other drugs, medicaments and biological substances
CPT/HCPCS: 36415; 71046; 80048; 84484; 85025; 93005

== ENCOUNTER 2020-08-31 06:13 | Emergency (ER) | payer MEDICARE ==
[2020-08-31 06:39] VITALS: BP 156/89
--- NOTE | 2020-08-31 08:36 | XRay Report ---
CHEST 2 VIEWS INDICATION: cough. COMPARISON: 02/04/2020 FINDINGS: Support devices: None. Heart: Within normal limits. Lungs/pleura: No acute air space or interstitial disease. No pneumothorax. Additional findings: None. IMPRESSION: No acute findings. Signer Name: Sanjeev Gaines Jr, MD Signed: 08/31/2020 8:31 AM Workstation Name: [id number]
--- NOTE | 2020-08-31 09:05 | Emergency Department Report ---
ED General Adult HPI - General Chief complaint: Upper Respiratory Infection Stated complaint: COUGHING Source: patient Mode of arrival: Ambulatory Limitations: No Limitations - History of Present Illness Initial comments: 64-year-old -[place] female patient presents with complaints of cough, shortness of breath, and wheezing x1 week. 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 She denies any hemoptysis, fever/chills/sweats, recent known sick contacts, loss of taste/smell. Patient states she is compliant with her daily inhalers. She also denies any leg pain/swelling, recent long travel, history of DVT/PE, or history of cancer. -: Sudden - Related Data Home Medications Medication Instructions Recorded Confirmed Last Taken hydroCHLOROthiazide [HCTZ] 25 mg PO QDAY 01/09/14 01/25/20 1 Day Ago ~01/24/20 Loratadine (Nf) [Claritin (Nf)] 10 mg PO QDAY 01/31/14 01/25/20 1 Day Ago ~01/24/20 Albuterol Sulfate [Ventolin HFA] 2 puff IH Q4H PRN 01/10/15 01/25/20 1 Day Ago ~01/24/20 Meclizine [Antivert] 50 mg PO BID 01/10/15 01/25/20 1 Day Ago ~01/24/20 PARoxetine [Paxil] 20 mg PO DAILY 01/10/15 01/25/20 1 Day Ago ~01/24/20 Ammonium Lactate/Emu Oil 1 tube PERCUTANEO BID 09/13/16 01/25/20 1 Day Ago ~01/24/20 Fluticasone Propionate 1 spray INNOSTRIL DAILY 09/13/16 01/25/20 1 Day Ago ~01/24/20 Gabapentin 100 mg TID PRN 09/13/16 01/25/20 1 Day Ago ~01/24/20 lisinopriL [Zestril TAB] 20 mg PO QDAY 09/13/16 01/25/20 1 Day Ago ~01/24/20 Previous Rx's Medication Instructions Recorded Last Taken Type Montelukast [Singulair] 10 mg PO QHS #30 tablet 02/04/14 1 Day Ago Rx ~01/24/20 Divalproex [Holly Ceballos] 500 mg PO BID #1 tablet 09/14/16 1 Day Ago Rx ~01/24/20 Nortriptyline [Pamelor] 25 mg PO QDAY #1 capsule 09/14/16 1 Day Ago Rx ~01/24/20 risperiDONE [RisperDAL] 0.5 mg PO BID #1 tablet 09/14/16 1 Day Ago Rx ~01/24/20 Famotidine [Pepcid] 40 mg PO QHS #10 tablet 12/30/19 1 Day Ago Rx ~01/24/20 Aspirin [Adult Aspirin] 81 mg PO DAILY #30 tablet.dr 01/27/20 Unknown Rx Azithromycin [Zithromax Z-GAMA] 0 mg PO DAILY #6 tab 08/31/20 Unknown Rx Prednisone [predniSONE 10 mg 10 mg PO .TAPER #1 tab.ds.pk 08/31/20 Unknown Rx (6-Day Pack, 21 Tabs)] Allergies Allergy/AdvReac Type Severity Reaction Status Date / Time Penicillins Allergy Mild Unknown Verified 01/24/20 19:17 propoxyphene Allergy NAUSEA,VOMI Unverified 01/24/20 19:17 TING ED Review of Systems ROS: Stated complaint: COUGHING Other details as noted in HPI Constitutional: denies: chills, fever, malaise, weakness Respiratory: cough, shortness of breath Cardiovascular: denies: chest pain Gastrointestinal: denies: abdominal pain, nausea, vomiting Neurological: denies: headache, weakness ED Past Medical Hx - Past Medical History Hx Hypertension: Yes Hx Congestive Heart Failure: No Hx Diabetes: No Hx Arthritis: Yes Hx Headaches / Migraines: Yes Hx Psychiatric Treatment: Yes (Anxiety, Bipolar, Schizophrenia, Panic Attacks) Hx Asthma: Yes (has cough, states it is from a scratchy throat and that lungs feel fine) Hx COPD: Yes Hx HIV: No Additional medical history: anxiety - Surgical History Hx Appendectomy: Yes Additional Surgical History: Hysterectomy - Social History Smoking Status: Former Smoker Substance Use Type: Prescribed - Medications Home Medications: Home Medications Medication Instructions Recorded Confirmed Last Taken Type hydroCHLOROthiazide [HCTZ] 25 mg PO QDAY 01/09/14 01/25/20 1 Day Ago History ~01/24/20 Loratadine (Nf) [Claritin (Nf)] 10 mg PO QDAY 01/31/14 01/25/20 1 Day Ago History ~01/24/20 Montelukast [Singulair] 10 mg PO QHS #30 tablet 02/04/14 01/25/20 1 Day Ago Rx ~01/24/20 Albuterol Sulfate [Ventolin HFA] 2 puff IH Q4H PRN 01/10/15 01/25/20 1 Day Ago History ~01/24/20 Meclizine [Antivert] 50 mg PO BID 01/10/15 01/25/20 1 Day Ago History ~01/24/20 PARoxetine [Paxil] 20 mg PO DAILY 01/10/15 01/25/20 1 Day Ago History ~01/24/20 Ammonium Lactate/Emu Oil 1 tube PERCUTANEO BID 09/13/16 01/25/20 1 Day Ago History ~01/24/20 Fluticasone Propionate 1 spray INNOSTRIL DAILY 09/13/16 01/25/20 1 Day Ago History ~01/24/20 Gabapentin 100 mg TID PRN 09/13/16 01/25/20 1 Day Ago History ~01/24/20 lisinopriL [Zestril TAB] 20 mg PO QDAY 09/13/16 01/25/20 1 Day Ago History ~01/24/20 Divalproex [Holly Ceballos] 500 mg PO BID #1 tablet 09/14/16 01/25/20 1 Day Ago Rx ~01/24/20 Nortriptyline [Pamelor] 25 mg PO QDAY #1 capsule 09/14/16 01/25/20 1 Day Ago Rx ~01/24/20 risperiDONE [RisperDAL] 0.5 mg PO BID #1 tablet 09/14/16 01/25/20 1 Day Ago Rx ~01/24/20 Famotidine [Pepcid] 40 mg PO QHS #10 tablet 12/30/19 01/25/20 1 Day Ago Rx ~01/24/20 Aspirin [Adult Aspirin] 81 mg PO DAILY #30 tablet. 01/27/20 Unknown Rx Azithromycin [Zithromax Z-GAMA] 0 mg PO DAILY #6 tab 08/31/20 Unknown Rx Prednisone [predniSONE 10 mg 10 mg PO .TAPER #1 tab.ds.pk 08/31/20 Unknown Rx (6-Day Pack, 21 Tabs)] ED Physical Exam - General Limitations: No Limitations General appearance: alert, in no apparent distress - Head Head exam: Present: atraumatic, normocephalic - Eye Eye exam: Present: normal appearance. Absent: scleral icterus - ENT ENT exam: Present: normal exam - Respiratory Respiratory exam: Present: normal lung sounds bilaterally, rales (Right sided), rhonchi. Absent: respiratory distress, wheezes, stridor - Cardiovascular Cardiovascular Exam: Present: regular rate, normal rhythm - Back Exam Back exam: Present: full ROM - Neurological Exam Neurological exam: Present: alert, oriented X3, normal gait - Psychiatric Psychiatric exam: Present: normal affect, normal mood - Skin Skin exam: Present: warm, dry, intact, normal color. Absent: rash ED Course Vital Signs 08/31/20 08/31/20 06:38 09:10 Temperature 98.2 F Pulse Rate 74 Respiratory 20 Rate Blood Pressure 156/89 O2 Sat by Pulse 97 Oximetry ED Medical Decision Making - Radiology Data Radiology results: report reviewed CHEST 2 VIEWS INDICATION: cough. COMPARISON: 02/04/2020 FINDINGS: Support devices: None. Heart: Within normal limits. Lungs/pleura: No acute air space or interstitial disease. No pneumothorax. Additional findings: None. IMPRESSION: No acute findings. - Medical Decision Making 64-year-old -[place] female patient presents with complaints of cough, shortness of breath, and wheezing x1 week. She states a history of asthma, COPD, and hypertension. She denies any hemoptysis, fever/chills/sweats, recent known sick contacts, loss of taste/smell. Patient states she is compliant with her daily inhalers. She also denies any leg pain/swelling, recent long travel, history of DVT/PE, or history of cancer. Chest x-ray is negative for any acute abnormalities. Will treat for acute exacerbation of COPD with Z-Gama and prednisone. Recommend follow-up with PCP in 3 to 5 days. Her vitals are within normal limits, she is well-appearing, she is stable for discharge home. Strict return precautions discussed in detail with patient who verbalized understanding. Critical care attestation.: If time is entered above; I have spent that time in minutes in the direct care of this critically ill patient, excluding procedure time. ED Disposition Clinical Impression: Acute exacerbation of chronic bronchitis Disposition: - TO HOME OR SELFCARE Is pt being admited?: No Condition: Stable Instructions: Acute Bronchitis, Adult, Aior-tw-Nqts, Chronic Bronchitis (ED) Prescriptions: Prednisone [predniSONE 10 mg (6-Day Pack, 21 Tabs)] 10 mg PO .TAPER #1 tab.ds.pk Azithromycin [Zithromax Z-GAMA] 0 mg PO DAILY #6 tab Referrals: PRIMARY CARE, [Primary Care Provider] - 3-5 Days
== END 2020-08-31 10:00 | disposition home or self-care (01) ==
LOC: ED 06:13
DX: J44.9 Chronic obstructive pulmonary disease, unspecified (principal); I10 Essential (primary) hypertension; M19.90 Unspecified osteoarthritis, unspecified site; G43.909 Migraine, unspecified, not intractable, without status migrainosus; F41.9 Anxiety disorder, unspecified; F31.9 Bipolar disorder, unspecified; F20.9 Schizophrenia, unspecified; Z90.710 Acquired absence of both cervix and uterus; Z87.891 Personal history of nicotine dependence; Z88.0 Allergy status to penicillin; Z88.8 Allergy status to other drugs, medicaments and biological substances; Z79.899 Other long term (current) drug therapy; Z79.82 Long term (current) use of aspirin
CPT/HCPCS: 71046; 99283

== ENCOUNTER 2021-02-24 18:39 | Emergency (ER) | payer MEDICARE ==
[2021-02-24] MEDS ORDERED: LORazepam 1 MG TAB PO ONE (19:39)
--- NOTE | 2021-02-24 19:39 | Emergency Department Report ---
ED Psych HPI - General Chief Complaint: Anxiety Stated Complaint: PANIC ATTACK Time Seen by Provider: 02/24/21 19:04 Source: patient, family Mode of arrival: Ambulatory - History of Present Illness Initial Comments: 65-year-old female, history of bipolar, schizophrenia, depression, presents to ED for evaluation. states patient has a history of panic attacks and began having a panic attack. Patient states she saw an image of something flash in front of her eyes. Patient states someone wants to hurt her. She reports having auditory hallucinations. Asked if she is having any suicidal thoughts, patient states, " I do not know." Has been states patient sees a therapist once a month. Patient reports she is compliant with her psychiatric medications. states patient had a previous psychiatric hospitalization when she was seeing and hearing things. Patient denies any alcohol or drug use. MD Complaint: other -: This evening Associated Psychiatric Symptoms: auditory hallucinations, visual hallucinations History of same: Yes Quality: constant Improves With: none Worsens With: none Associated Symptoms: denies other symptoms Treatments Prior to Arrival: none - Related Data Home Medications Medication Instructions Recorded Confirmed Last Taken hydroCHLOROthiazide [HCTZ] 25 mg PO QDAY 01/09/14 02/26/21 02/24/21 Loratadine (Nf) [Claritin (Nf)] 10 mg PO QDAY 01/31/14 01/25/20 1 Day Ago ~01/24/20 Albuterol Sulfate [Ventolin HFA] 2 puff IH Q4H PRN 01/10/15 02/26/21 02/24/21 Meclizine [Antivert] 50 mg PO BID 01/10/15 01/25/20 1 Day Ago ~01/24/20 PARoxetine [Paxil] 20 mg PO DAILY 01/10/15 01/25/20 1 Day Ago ~01/24/20 Ammonium Lactate/Emu Oil 1 tube PERCUTANEO BID 09/13/16 01/25/20 1 Day Ago ~01/24/20 Fluticasone Propionate 1 spray INNOSTRIL DAILY 09/13/16 02/26/21 02/24/21 Gabapentin 100 mg TID PRN 09/13/16 02/26/21 02/24/21 lisinopriL [Zestril TAB] 20 mg PO QDAY 09/13/16 01/25/20 1 Day Ago ~01/24/20 Nitrofurantoin Evangeline/M-Cryst 100 mg PO Q12HR 02/26/21 02/26/21 02/25/21 22:21 [Macrobid CAP] Previous Rx's Medication Instructions Recorded Last Taken Type Montelukast [Singulair] 10 mg PO QHS #30 tablet 02/04/14 02/23/[address] [Depakote Dr] 500 mg PO BID #1 tablet 09/14/16 1 Day Ago Rx ~01/24/20 Nortriptyline [Pamelor] 25 mg PO QDAY #1 capsule 09/14/16 1 Day Ago Rx ~01/24/20 risperiDONE [RisperDAL] 0.5 mg PO BID #1 tablet 09/14/16 1 Day Ago Rx ~01/24/20 Famotidine [Pepcid] 40 mg PO QHS #10 tablet 12/30/19 1 Day Ago Rx ~01/24/20 Aspirin [Adult Aspirin] 81 mg PO DAILY #30 tablet.dr 01/27/20 Unknown Rx Azithromycin [Zithromax Z-GAMA] 0 mg PO DAILY #6 tab 08/31/20 Unknown Rx Prednisone [predniSONE 10 mg 10 mg PO .TAPER #1 tab.ds.pk 08/31/20 Unknown Rx (6-Day Pack, 21 Tabs)] Allergies Allergy/AdvReac Type Severity Reaction Status Date / Time Penicillins Allergy Mild Unknown Verified 02/24/21 23:10 propoxyphene Allergy NAUSEA,VOMI Verified 02/24/21 23:10 TING ED Review of Systems ROS: Stated complaint: PANIC ATTACK Other details as noted in HPI Comment: All other systems reviewed and negative Psychiatric: anxiety, auditory hallucinations, visual hallucinations ED Past Medical Hx - Past Medical History Previous Medical History?: Yes Hx Hypertension: Yes Hx Congestive Heart Failure: No Hx Diabetes: No Hx Arthritis: Yes Hx Headaches / Migraines: Yes Hx Psychiatric Treatment: Yes (Anxiety, Bipolar, Schizophrenia, Panic Attacks) Hx Asthma: Yes (has cough, states it is from a scratchy throat and that lungs feel fine) Hx COPD: Yes Hx HIV: No Additional medical history: anxiety - Surgical History Past Surgical History?: Yes Hx Appendectomy: Yes Additional Surgical History: Hysterectomy - Social History Smoking Status: Former Smoker Substance Use Type: Prescribed - Medications Home Medications: Home Medications Medication Instructions Recorded Confirmed Last Taken Type hydroCHLOROthiazide [HCTZ] 25 mg PO QDAY 01/09/14 02/26/21 02/24/21 History Loratadine (Nf) [Claritin (Nf)] 10 mg PO QDAY 01/31/14 01/25/20 1 Day Ago History ~01/24/20 Montelukast [Singulair] 10 mg PO QHS #30 tablet 02/04/14 02/26/21 02/23/21 Rx Albuterol Sulfate [Ventolin HFA] 2 puff IH Q4H PRN 01/10/15 02/26/21 02/24/21 History Meclizine [Antivert] 50 mg PO BID 01/10/15 01/25/20 1 Day Ago History ~01/24/20 PARoxetine [Paxil] 20 mg PO DAILY 01/10/15 01/25/20 1 Day Ago History ~01/24/20 Ammonium Lactate/Emu Oil 1 tube PERCUTANEO BID 09/13/16 01/25/20 1 Day Ago Histo ry ~01/24/20 Fluticasone Propionate 1 spray INNOSTRIL DAILY 09/13/16 02/26/21 02/24/21 Histo ry Gabapentin 100 mg TID PRN 09/13/16 02/26/21 02/24/21 History lisinopriL [Zestril TAB] 20 mg PO QDAY 09/13/16 01/25/20 1 Day Ago History ~01/24/20 Divalproex [Holly Ceballos] 500 mg PO BID #1 tablet 09/14/16 01/25/20 1 Day Ago Rx ~01/24/20 Nortriptyline [Pamelor] 25 mg PO QDAY #1 capsule 09/14/16 01/25/20 1 Day Ago Rx ~01/24/20 risperiDONE [RisperDAL] 0.5 mg PO BID #1 tablet 09/14/16 01/25/20 1 Day Ago Rx ~01/24/20 Famotidine [Pepcid] 40 mg PO QHS #10 tablet 12/30/19 01/25/20 1 Day Ago Rx ~01/24/20 Aspirin [Adult Aspirin] 81 mg PO DAILY #30 tablet. 01/27/20 Unknown Rx Azithromycin [Zithromax Z-GAMA] 0 mg PO DAILY #6 tab 08/31/20 Unknown Rx Prednisone [predniSONE 10 mg 10 mg PO .TAPER #1 tab.ds.pk 08/31/20 Unknown Rx (6-Day Pack, 21 Tabs)] Nitrofurantoin Evangeline/M-Cryst 100 mg PO Q12HR 02/26/21 02/26/21 02/25/21 22:21 History [Macrobid CAP] ED Physical Exam - General Limitations: No Limitations General appearance: anxious - Head Head exam: Present: atraumatic, normocephalic - Eye Eye exam: Present: normal appearance, EOMI - ENT ENT exam: Present: mucous membranes moist - Neck Neck exam: Present: normal inspection - Respiratory Respiratory exam: Present: normal lung sounds bilaterally. Absent: respiratory distress - Cardiovascular Cardiovascular Exam: Present: normal rhythm, tachycardia - GI/Abdominal GI/Abdominal exam: Present: soft. Absent: distended, tenderness - Extremities Exam Extremities exam: Present: normal inspection - Neurological Exam Neurological exam: Present: alert, oriented X3 - Psychiatric Psychiatric exam: Present: anxious - Skin Skin exam: Present: warm, dry, intact, normal color ED Course Vital Signs 02/24/21 02/24/21 02/24/21 18:42 18:49 21:35 Temperature 99.8 F H 99.6 F Pulse Rate 116 H 113 H Respiratory 26 H 18 22 Rate Blood Pressure 114/72 [Right] O2 Sat by Pulse 96 99 98 Oximetry 02/25/21 02/25/21 02/25/21 03:38 08:55 11:12 Temperature 99.8 F H 98.0 F Pulse Rate 100 H 110 H Respiratory 18 18 Rate Blood Pressure 127/79 118/85 [Right] O2 Sat by Pulse 97 97 97 Oximetry 02/25/21 19:30 Temperature 99.0 F Pulse Rate 116 H Respiratory 18 Rate Blood Pressure 118/78 [Right] O2 Sat by Pulse 98 Oximetry ED Medical Decision Making - Lab Data Result diagrams: 02/24/21 19:33 02/24/21 19:33 Critical care attestation.: If time is entered above; I have spent that time in minutes in the direct care of this critically ill patient, excluding procedure time. ED Disposition Clinical Impression: Acute psychosis, Hypokalemia, Anxiety, UTI (urinary tract infection) Disposition: 01 HOME / SELF CARE / HOMELESS Is pt being admited?: No Condition: Stable Referrals: PRIMARY CARE,MD [Primary Care Provider] - 3-5 Days
[2021-02-24 19:48] LABS: Basophils # (Auto) 0.1 K/mm3 (0.0-0.1); Basophils % (Auto) 0.6 % (0.0-1.8); Eosinophils # (Auto) 0.1 K/mm3 (0.0-0.4); Eosinophils % (Auto) 0.5 % (0.0-4.3); Hematocrit 36.1 % (30.3-42.9); Hemoglobin 11.7 gm/dl (10.1-14.3); Lymphocytes # (Auto) 1.3 K/mm3 (1.2-5.4); Lymphocytes % (Auto) 13.1 % (13.4-35.0); Mean Corpuscular HGB Conc 33 % (30-34); Mean Corpuscular Volume 78 fl (79-97); Monocytes # (Auto) 0.4 K/mm3 (0.0-0.8); Monocytes % (Auto) 3.5 % (0.0-7.3); Platelet Count 284 K/mm3 (140-440); Red Blood Count 4.66 M/mm3 (3.65-5.03)
[2021-02-24 20:09] LABS: BUN/Creatinine Ratio 16; Blood Urea Nitrogen 18 mg/dL (7-17); Calcium 9.3 mg/dL (8.4-10.2); Hemolysis Index 7
[2021-02-24] MEDS ORDERED: POTASSIUM CHLORIDE ER 20 MEQ TAB PO ONE (20:27)
[2021-02-24 21:44] LABS: Bilirubin,Urine NEG (Negative); Blood,Urine SM (Negative); Color,Urine Yellow (Yellow); Protein,Urine <15 mg/dL mg/dL (Negative); Urobilinogen,Urine < 2.0 mg/dL (<2.0)
[2021-02-24 21:52] LABS: Amphetamine Screen,Urine Negative; Benzodiazepines Screen,Urine Negative; Cannabinoid Screen,Urine Negative; Cocaine Screen,Urine Negative; Methadone Screen,Urine Negative; Opiate Screen,Urine Negative
[2021-02-24] MEDS: NITROFURANTOIN MONOHYD/M-CRYST 100 MG CAP PO SCH (23:11)
[2021-02-25] MEDS: NITROFURANTOIN MONOHYD/M-CRYST 100 MG CAP PO SCH ×2 (09:55→22:21)
--- NOTE | 2021-02-25 11:35 | Consultation ---
History of Present Illness - Reason for Consult Consult date: 02/25/21 - History of Present Psychiatric Illness ED Note:65-year-old female, history of bipolar, schizophrenia, depression, presents to ED for evaluation. states patient has a history of panic attacks and began having a panic attack. Patient states she saw an image of something flash in front of her eyes. Patient states someone wants to hurt her. She reports having auditory hallucinations. Asked if she is having any suicidal thoughts, patient states, " I do not know." Has been states patient sees a therapist once a month. Patient reports she is compliant with her psychiatric medications. states patient had a previous psychiatric hospitalization when she was seeing and hearing things. Patient denies any alcohol or drug use. Mary Hansen is a 65 year old female with history of bipolar, schizophrenia, anxiety disorder. In my interview with the patient, she is calm, alert and orient x2. She reports increasing paranoia that started yesterday, stating that " I'm feeling like something is going to happen, somebody trying to hurt me." She endorses being depressed stating symptoms such as ; Worthlessness, feeling sad and self harm via scratching. She denies any current suicidal/homicidal ideation and denies auditory hallucinations but admits having visual hallucinations " I see shadows and bugs crawling on the floor." PAST PSYCHIATRIC HISTORY Diagnoses: Schizophrenia, Anxiety, Bipolar Suicide attempts or Self-harm behavior:Unknown Prior psychiatric hospitalizations: unknown Substance Abuse history: Denies Previous psychiatric medications tried:Deb Mendoza Outpatient treatment: Unknown PAST MEDICAL HISTORY: None reported Family Psychiatric History: None reported or documented SOCIAL HISTORY Marital Status: Living Arrangements: Lives with Employment Status: Retired Access to guns/weapons: Denies Education: bachelors History of Abuse: Yes Legal History: unknown EVIEW OF SYSTEMS Constitutional: Negative for weight loss ENT: Negative for stridor Respiratory: Negative for cough or hemoptysis All other systems reviewed and are negative MENTAL STATUS EXAMINATION General Appearance and Behavior: Age appropriate, wearing appropriate clothes, good eye contact, anxious and cooperative Mood: "Depressed" Affect and affective range: congruent with stated mood Thought Process: Goal directed Thought Content: Not suicidal Speech: Normal volume, Regular rate and rhythm Suicidal Ideation: Denies Homicidal Ideation: Denies Hallucinations: Visual Delusions: Yes Impulse Control: normal Insight and Judgment: Limited Memory/Cognition: Limited Attention: Normal Orientation: Alert, oriented Assessment (1) Schizophrenia (2) (3) Plan 1013 Abilify 5mg po daily Venlafaxine 37.5mg po daily Sitter: Defer to primary Medical: Per primary Disposition: Recommend acute inpatient psychiatric treatment Will follow Case staffed with Dr. Robertson Medications and Allergies Medications and Allergies Allergies Allergy/AdvReac Type Severity Reaction Status Date / Time Penicillins Allergy Mild Unknown Verified 02/24/21 23:10 propoxyphene Allergy NAUSEA,VOMI Verified 02/24/21 23:10 TING Home Medications Medication Instructions Recorded Confirmed Last Taken Type hydroCHLOROthiazide [HCTZ] 25 mg PO QDAY 01/09/14 02/24/21 02/24/21 History Loratadine (Nf) [Claritin (Nf)] 10 mg PO QDAY 01/31/14 01/25/20 1 Day Ago History ~01/24/20 Montelukast [Singulair] 10 mg PO QHS #30 tablet 02/04/14 02/24/21 02/23/21 Rx Albuterol Sulfate [Ventolin HFA] 2 puff IH Q4H PRN 01/10/15 02/24/21 02/24/21 History Meclizine [Antivert] 50 mg PO BID 01/10/15 01/25/20 1 Day Ago History ~01/24/20 PARoxetine [Paxil] 20 mg PO DAILY 01/10/15 01/25/20 1 Day Ago History ~01/24/20 Ammonium Lactate/Emu Oil 1 tube PERCUTANEO BID 09/13/16 01/25/20 1 Day Ago History ~01/24/20 Fluticasone Propionate 1 spray INNOSTRIL DAILY 09/13/16 02/24/21 02/24/21 History Gabapentin 100 mg TID PRN 09/13/16 02/24/21 02/24/21 History lisinopriL [Zestril TAB] 20 mg PO QDAY 09/13/16 01/25/20 1 Day Ago History ~01/24/[address] [Depakote Dr] 500 mg PO BID #1 tablet 09/14/16 01/25/20 1 Day Ago Rx ~01/24/20 Nortriptyline [Pamelor] 25 mg PO QDAY #1 capsule 09/14/16 01/25/20 1 Day Ago Rx ~01/24/20 risperiDONE [RisperDAL] 0.5 mg PO BID #1 tablet 09/14/16 01/25/20 1 Day Ago Rx ~01/24/20 Famotidine [Pepcid] 40 mg PO QHS #10 tablet 12/30/19 01/25/20 1 Day Ago Rx ~01/24/20 Aspirin [Adult Aspirin] 81 mg PO DAILY #30 tablet.dr 01/27/20 Unknown Rx Azithromycin [Zithromax Z-GAMA] 0 mg PO DAILY #6 tab 08/31/20 Unknown Rx Prednisone [predniSONE 10 mg 10 mg PO .TAPER #1 tab.ds.pk 08/31/20 Unknown Rx (6-Day Pack, 21 Tabs)] Active Meds: Active Medications Nitrofurantoin Macrocrystals (Nitrofurantoin Monohyd/M-Cryst 100 Mg Cap) 100 mg PO Q12HR WALE Stop: 03/03/21 10:01 Last Admin: 02/25/21 09:55 Dose: 100 mg Documented by: Mental Status Exam - Vital signs Last Vital Signs Temp 98.0 F 02/25/21 08:55 Pulse 110 H 02/25/21 08:55 Resp 18 02/25/21 08:55 BP 118/85 02/25/21 08:55 Pulse Ox 97 02/25/21 11:12 Results Result Diagrams: 02/24/21 19:33 02/24/21 19:33 Abnormal lab results 02/24/21 02/24/21 02/24/21 Range/Units 19:33 19:33 19:33 MCV 78 L (79-97) fl MCH 25 L (28-32) pg RDW 16.0 H (13.2-15.2) % Lymph % (Auto) 13.1 L (13.4-35.0) % Seg Neutrophils % 82.3 H (40.0-70.0) % Seg Neutrophils # 8.3 H (1.8-7.7) K/mm3 Potassium 3.1 L (3.6-5.0) mmol/L BUN 18 H (7-17) mg/dL Glucose 101 H (65-100) mg/dL Urine WBC (Auto) (0.0-6.0) /HPF Salicylates 2.1 L (2.8-20.0) mg/dL Acetaminophen (10.0-30.0) ug/mL 02/24/21 02/24/21 Range/Units 19:33 20:22 MCV (79-97) fl MCH (28-32) pg RDW (13.2-15.2) % Lymph % (Auto) (13.4-35.0) % Seg Neutrophils % (40.0-70.0) % Seg Neutrophils # (1.8-7.7) K/mm3 Potassium (3.6-5.0) mmol/L BUN (7-17) mg/dL Glucose (65-100) mg/dL Urine WBC (Auto) 134.0 H (0.0-6.0) /HPF Salicylates (2.8-20.0) mg/dL Acetaminophen 5.0 L (10.0-30.0) ug/mL All other labs normal.
--- NOTE | 2021-02-25 12:06 | Emergency Department Report ---
Blank Doc - Documentation Documentation: This patient came in here yesterday for the complaint of some anxiety but also exhibited some signs of acute psychosis. She was placed on a 1013 in the ED hold. Patient's medical clearance found the patient to have some hypokalemia with potassium of 3.1 that was replaced with potassium chloride. She also has a urinary tract infection and has been started on Macrobid. The patient was seen by the psychiatric nurse practitioner today, under Dr. Robertson, and they feel that the patient does require inpatient stabilization and to continue her 1013. They are starting the patient on venlafaxine and Aripiprazole. Patient's vital signs show some mild tachycardia that may be secondary to agitation, otherwise vital signs are reassuring occluding being afebrile. We will continue to monitor this patient during her ED course.
[2021-02-25] MEDS ORDERED: VENLAFAXINE 37.5 MG TAB PO SCH (13:00)
[2021-02-25] MEDS ORDERED: ARIPiprazole 5 MG TAB PO SCH (13:00)
[2021-02-25] MEDS ORDERED: ALPRAZolam 1 MG TAB PO ONE (17:51)
[2021-02-25 19:31] VITALS: BP 118/78
== END 2021-02-26 00:20 | disposition home or self-care (01) ==
LOC: ED 18:39 → EEVIPCON 18:39 → ED 02-26 00:20
DX: R44.0 Auditory hallucinations (principal); E87.6 Hypokalemia; N39.0 Urinary tract infection, site not specified; I10 Essential (primary) hypertension; F41.9 Anxiety disorder, unspecified; Z20.822 Contact with and (suspected) exposure to COVID-19; Z90.89 Acquired absence of other organs; Z87.891 Personal history of nicotine dependence; Z90.79 Acquired absence of other genital organ(s)
CPT/HCPCS: 36415; 80048; 80307; 81001; 85025; 99284; U0003; 80320; G0480

== ENCOUNTER 2021-02-25 15:30 | Inpatient (IN) | payer MEDICARE ==
--- NOTE | 2021-02-26 07:48 | History and Physical Report ---
GP History & Physical - History of Present Illness Date of admission: 02/25/21 Date of Examination: 02/26/21 Reason for Admission: Danger to self History of Present Illness: The patient was seen in the ED: Mary Hansen is a 65 year old female with history of bipolar, schizophrenia, anxiety disorder. In my interview with the patient, she is calm, alert and orient x2. She reports increasing paranoia that started yesterday, stating that " I'm feeling like something is going to happen, somebody trying to hurt me." She endorses being depressed stating symptoms such as ; Worthlessness, feeling sad and self harm via scratching. She denies any current suicidal/homicidal ideation and denies auditory hallucinations but admits having visual hallucinations " I see shadows and bugs crawling on the floor." Today, the patient continues to endorse depression but denies having suicidal ideation. The patient reports auditory and visual hallucinations stating " voices telling me to kill myself and I see spiders." PAST PSYCHIATRIC HISTORY Diagnoses: Schizophrenia, Anxiety, Bipolar Suicide attempts or Self-harm behavior:Unknown Prior psychiatric hospitalizations: unknown Substance Abuse history: Denies Previous psychiatric medications tried:Deb Mendoza Outpatient treatment: Unknown PAST MEDICAL HISTORY: None reported Family Psychiatric History: None reported or documented SOCIAL HISTORY Marital Status: Living Arrangements: Lives with Employment Status: Retired Access to guns/weapons: Denies Education: bachelors History of Abuse: Yes Legal History: unknown EVIEW OF SYSTEMS Constitutional: Negative for weight loss ENT: Negative for stridor Respiratory: Negative for cough or hemoptysis All other systems reviewed and are negative MENTAL STATUS EXAMINATION General Appearance and Behavior: Age appropriate, wearing appropriate clothes, good eye contact, anxious and cooperative Mood: "Depressed" Affect and affective range: congruent with stated mood Thought Process: Goal directed Thought Content: Not suicidal Speech: Normal volume, Regular rate and rhythm Suicidal Ideation: Denies Homicidal Ideation: Denies Hallucinations: Auditory/Visual Delusions: Yes Impulse Control: normal Insight and Judgment: Limited Memory/Cognition: Limited Attention: Normal Orientation: Alert, oriented Assessment (1) Schizophrenia (2) (3) Current Visit: Yes Status: Acute Treatment Plan Patient admitted for inpatient psychiatric evaluation, medication adjustment and close monitoring The patient's behavior, mood, sleep and appetite will be closely monitored. Patient enrolled in individual and group therapeutic sessions and encouraged to attend. Patient provided with a safe and structured environment. Patient's physical health needs will be addressed by the Hospitalist. Hospitalist Consulted Labs including CBC, CMP, Lipid profile and Hemoglobin A1C levels ordered for baseline reference Social Assessment will be completed and the Data [facility] Project Manager will work with patient and family to ensure a suitable and safe disposition Medication adjustment will be made as clinically indicated Continue home meds Usual Wellness Mormonism/Preservation: - Start Trazodone 50 mg po QHS & 50 mg po QHS PRN between 10 PM & 2 AM for insomnia - Start Melatonin 5 mg po QHS to promote circadian rhythm The patient agreed on the treatment plan, understood the risk, benefit, alternative treatment, potential consequence of no treatment, and gave informed consent. Estimated days:6 Post hospital care: primary care provider, psychiatric provider Case staffed with Dr. Robertson Legal Status: Voluntary Reaction to Hospitalization: Accepting Medications and Allergies Legal Status: Voluntary Reaction to Hospitalization: Accepting Medications and Allergies Allergies Allergy/AdvReac Type Severity Reaction Status Date / Time Penicillins Allergy Mild Unknown Verified 02/24/21 23:10 propoxyphene Allergy NAUSEA,VOMI Verified 02/24/21 23:10 TING Home Medications Medication Instructions Recorded Confirmed Last Taken Type hydroCHLOROthiazide [HCTZ] 25 mg PO QDAY 01/09/14 02/26/21 02/24/21 History Loratadine (Nf) [Claritin (Nf)] 10 mg PO QDAY 01/31/14 01/25/20 1 Day Ago History ~01/24/20 Montelukast [Singulair] 10 mg PO QHS #30 tablet 02/04/14 02/26/21 02/23/21 Rx Albuterol Sulfate [Ventolin HFA] 2 puff IH Q4H PRN 01/10/15 02/26/21 02/24/21 History Meclizine [Antivert] 50 mg PO BID 01/10/15 01/25/20 1 Day Ago History ~01/24/20 PARoxetine [Paxil] 20 mg PO DAILY 01/10/15 01/25/20 1 Day Ago History ~01/24/20 Ammonium Lactate/Emu Oil 1 tube PERCUTANEO BID 09/13/16 01/25/20 1 Day Ago History ~01/24/20 Fluticasone Propionate 1 spray INNOSTRIL DAILY 09/13/16 02/26/21 02/24/21 History Gabapentin 100 mg TID PRN 09/13/16 02/26/21 02/24/21 History lisinopriL [Zestril TAB] 20 mg PO QDAY 09/13/16 01/25/20 1 Day Ago History ~01/24/[address] [Holly Ceballos] 500 mg PO BID #1 tablet 09/14/16 01/25/20 1 Day Ago Rx ~01/24/20 Nortriptyline [Pamelor] 25 mg PO QDAY #1 capsule 09/14/16 01/25/20 1 Day Ago Rx ~01/24/20 risperiDONE [RisperDAL] 0.5 mg PO BID #1 tablet 09/14/16 01/25/20 1 Day Ago Rx ~01/24/20 Famotidine [Pepcid] 40 mg PO QHS #10 tablet 12/30/19 01/25/20 1 Day Ago Rx ~01/24/20 Aspirin [Adult Aspirin] 81 mg PO DAILY #30 tablet. 01/27/20 Unknown Rx Azithromycin [Zithromax Z-GAMA] 0 mg PO DAILY #6 tab 08/31/20 Unknown Rx Prednisone [predniSONE 10 mg 10 mg PO .TAPER #1 tab.ds.pk 08/31/20 Unknown Rx (6-Day Pack, 21 Tabs)] Nitrofurantoin Scurry/M-Cryst 100 mg PO Q12HR 02/26/21 02/26/21 02/25/21 22:21 History [Macrobid CAP] Results - Results Labs/Vitals: Last Vital Signs Temp 98.7 F 02/26/21 02:47 Pulse 111 H 02/26/21 02:47 Resp 18 02/26/21 02:47 BP 126/83 02/26/21 02:47 Pulse Ox 97 02/26/21 02:47 Physical Examination - Constitutional Vitals: Vital Signs Temp Pulse Resp BP Pulse Ox 98.7 F 111 H 18 126/83 97 02/26/21 02:47 02/26/21 02:47 02/26/21 02:47 02/26/21 02:47 02/26/21 02:47 Temperature -Last 24 Hours Temperature 98.7 F Mental Status Exam - Vital signs Last Vital Signs Temp 98.7 F 02/26/21 02:47 Pulse 111 H 02/26/21 02:47 Resp 18 02/26/21 02:47 BP 126/83 02/26/21 02:47 Pulse Ox 97 02/26/21 02:47 Physician Certification - Certification Statement Physician Certification Statement: This is an acknowledgement statement that MARY HANSEN is a 65 year old F who requires inpatient psychiatric admission for treatment which could reasonably be expected to improve the patient's condition for Estimated period of time patient will need to remain in the hospital: [ ] Plan for post-hospital care: [ ]
[2021-02-26 09:20] LABS: Chol/HDL Ratio 2.88 %
[2021-02-26] MEDS ORDERED: FLUTICASONE PROPIONATE InNostril SCH (10:00)
[2021-02-26] MEDS ORDERED: EMU OIL PERCUTANEO SCH (10:00)
[2021-02-26] MEDS ORDERED: AMMONIUM LACTATE PERCUTANEO SCH (10:00)
[2021-02-26] MEDS: LISINOPRIL 20 MG TAB PO SCH (11:00)
[2021-02-26] MEDS: ASPIRIN EC 81 MG TAB PO SCH (11:00)
[2021-02-26] MEDS: DIVALPROEX DR 500 MG TAB PO SCH ×2 (11:00→21:56)
[2021-02-26] MEDS: NORTRIPTYLINE 25 MG CAP PO SCH (11:00)
[2021-02-26] MEDS: NITROFURANTOIN MONOHYD/M-CRYST 100 MG CAP PO SCH ×2 (11:00→21:56)
[2021-02-26] MEDS: PARoxetine 20 MG TAB PO SCH (11:01)
[2021-02-26] MEDS: risperiDONE 0.25 MG TAB PO SCH ×2 (11:01→21:56)
[2021-02-26] MEDS: FLUTICASONE PROPIONATE NASAL SPRAY 16 GM NS SCH (11:02)
[2021-02-26 13:37] LABS: Hepatitis C Virus Antibody Non-Reactive (NonReactive)
[2021-02-26 14:26] LABS: Hepatitis B Surface Antigen Negative (Negative)
--- NOTE | 2021-02-26 17:49 | Consultation ---
History of Present Illness - Reason for Consult Consult date: 02/26/21 - History of Present Illness Reason for consultation: Medical evaluation at the time of admission to psych unit History of present illness: 65-year-old -[place] female with PMH of hypertension, bipolar disorder and schizophrenia lives with her . She is admitted for exacerbation/flareup of schizophrenic symptoms. Patient has been experiencing visual and auditory hallucinations and is paranoid. She is hearing people's voices and she is concerned about impending harm. She also has visual hallucinations, bugs etc. She also says that she is depressed. She denies suicidal ideation. Only complaints she has or she does not feel well, feels tired and has some headaches. Patient is currently fairly but not perfectly oriented. She knows the place, date is close and knows who is the president. She is able to give reasonable but not the detailed history. Patient is currently undergoing intense inpatient psych therapy. Review of systems: 13 systems reviewed and only the pertinent findings are stated ER. Patient denies fever or chills. Appetite is poor. Not sure how much she lost weight. Denies of cardiac problems. No chest pains, palpitations or syncopal episodes. Denies history of chronic lung disease. Denies dyspnea or wheezing. Denies nausea, vomiting or abdominal pain. Denies dysuria or hematochezia or hematuria. Past medical history: Hypertension, bipolar, schizophrenia Past surgical history: She cannot recall Social history: She lives with her . Family history: Noncontributory as per patient Medications and Allergies Allergies Allergy/AdvReac Type Severity Reaction Status Date / Time Penicillins Allergy Mild Unknown Verified 02/24/21 23:10 propoxyphene Allergy NAUSEA,VOMI Verified 02/24/21 23:10 TING Home Medications Medication Instructions Recorded Confirmed Last Taken Type hydroCHLOROthiazide [HCTZ] 25 mg PO QDAY 01/09/14 02/26/21 02/24/21 History Loratadine (Nf) [Claritin (Nf)] 10 mg PO QDAY 01/31/14 01/25/20 1 Day Ago History ~01/24/20 Montelukast [Singulair] 10 mg PO QHS #30 tablet 02/04/14 02/26/21 02/23/21 Rx Albuterol Sulfate [Ventolin HFA] 2 puff IH Q4H PRN 01/10/15 02/26/21 02/24/21 History Meclizine [Antivert] 50 mg PO BID 01/10/15 01/25/20 1 Day Ago History ~01/24/20 PARoxetine [Paxil] 20 mg PO DAILY 01/10/15 01/25/20 1 Day Ago History ~01/24/20 Ammonium Lactate/Emu Oil 1 tube PERCUTANEO BID 09/13/16 01/25/20 1 Day Ago History ~01/24/20 Fluticasone Propionate 1 spray INNOSTRIL DAILY 09/13/16 02/26/21 02/24/21 History Gabapentin 100 mg TID PRN 09/13/16 02/26/21 02/24/21 History lisinopriL [Zestril TAB] 20 mg PO QDAY 09/13/16 01/25/20 1 Day Ago History ~01/24/20 Divalproex [Holly Cebalols] 500 mg PO BID #1 tablet 09/14/16 01/25/20 1 Day Ago Rx ~01/24/20 Nortriptyline [Pamelor] 25 mg PO QDAY #1 capsule 09/14/16 01/25/20 1 Day Ago Rx ~01/24/20 risperiDONE [RisperDAL] 0.5 mg PO BID #1 tablet 09/14/16 01/25/20 1 Day Ago Rx ~01/24/20 Famotidine [Pepcid] 40 mg PO QHS #10 tablet 12/30/19 01/25/20 1 Day Ago Rx ~01/24/20 Aspirin [Adult Aspirin] 81 mg PO DAILY #30 tablet. 01/27/20 Unknown Rx Azithromycin [Zithromax Z-GAMA] 0 mg PO DAILY #6 tab 08/31/20 Unknown Rx Prednisone [predniSONE 10 mg 10 mg PO .TAPER #1 tab.ds.pk 08/31/20 Unknown Rx (6-Day Pack, 21 Tabs)] Nitrofurantoin [place]/M-Cryst 100 mg PO Q12HR 02/26/21 02/26/21 02/25/21 22:21 History [Macrobid CAP] Active Meds: Active Medications Aspirin (Aspirin Ec 81 Mg Tab) 81 mg PO DAILY [facility] Last Admin: 02/26/21 11:00 Dose: 81 mg Documented by: Cetirizine HCl (Cetirizine 10 Mg Tab) 10 mg PO DAILY [facility] Divalproex Sodium (Divalproex Dr 500 Mg Tab) 500 mg PO BID [facility] Last Admin: 02/26/21 11:00 Dose: 500 mg Documented by: Famotidine (Famotidine 20 Mg Tab) 40 mg PO QHS [facility] Fluticasone Propionate (Fluticasone Propionate Nasal [place] 16 Gm) 50 mcg NS QDAY [facility] Last Admin: 02/26/21 11:02 Dose: 50 mcg Documented by: Lisinopril (Lisinopril 20 Mg Tab) 20 mg PO QDAY [facility] Last Admin: 02/26/21 11:00 Dose: 20 mg Documented by: Montelukast Sodium (Montelukast 10 Mg Tab) 10 mg PO QHS [facility] Nitrofurantoin Macrocrystals (Nitrofurantoin Monohyd/M-Cryst 100 Mg Cap) 100 mg PO Q12HR [facility] Last Admin: 02/26/21 11:00 Dose: 100 mg Documented by: Nortriptyline HCl (Nortriptyline 25 Mg Cap) 25 mg PO QDAY [facility] Last Admin: 02/26/21 11:00 Dose: 25 mg Documented by: Paroxetine HCl (Paroxetine 20 Mg Tab) 20 mg PO DAILY [facility] Last Admin: 02/26/21 11:01 Dose: 20 mg Documented by: Risperidone (Risperidone 0.25 Mg Tab) 0.5 mg PO BID [facility] Last Admin: 02/26/21 11:01 Dose: 0.5 mg Documented by: Exam - Constitutional Vitals: Temp Pulse Resp BP Pulse Ox 98.7 F 98 H 18 105/73 97 02/26/21 02:47 02/26/21 11:00 02/26/21 02:47 02/26/21 11:00 02/26/21 02:47 General appearance: Present: no acute distress, other (Sluggish, depressed but awake and fairly alert) - EENT Eyes: Present: PERRL ENT: clear oral mucosa - Neck Neck: Present: supple. Absent: masses or JVD - Respiratory Respiratory effort: normal Respiratory: bilateral: CTA - Cardiovascular Rhythm: regular - Extremities Extremities: No edema - Abdominal General gastrointestinal: Present: soft, non-tender, non-distended, normal bowel sounds - Integumentary Integumentary: Absent: rash - Musculoskeletal Musculoskeletal: strength equal bilaterally - Psychiatric Psychiatric: depressed - Neurologic Neurologic: no focal deficits, moves all extremities Results - Labs Labs: Abnormal lab results 02/26/21 Range/Units 08:23 Hemoglobin A1c 6.1 H (4-6) % Assessment and Plan Assessment: Exacerbation of symptoms of schizophrenia Worsening of depression with history of bipolar disorder with dysthymia/dysphoria History of hypertension, BP stable Headaches, appear to be mild Recommendations: Psychiatric management as you are doing Tylenol as needed for headaches Obtain CBC and a CMP Continue lisinopril for now Discussed with the nursing staff Thank you for this consultation and will follow patient on as needed basis
[2021-02-26] MEDS: FAMOTIDINE 20 MG TAB PO SCH (21:56)
[2021-02-26] MEDS: MONTELUKAST 10 MG TAB PO SCH (21:56)
[2021-02-26] MEDS ORDERED: NON-FORMULARY EACH (Famotidine [Pepcid] 40 MG Tablet) PO SCH (22:00)
--- NOTE | 2021-02-27 08:06 | Progress Note ---
Subjective Date of service: 02/27/21 Subjective Comment: 02/27/21: The patient seen in the activity room socializing with peers. The patient continue to be paranoid stating " I feel like people are out to get me. " She is still having visual hallucination " seeing shadows and spiders. " The patient denies any current suicidal, homicidal ideation and denies auditory hallucinations. REVIEW OF SYSTEMS Constitutional: Negative for weight loss ENT: Negative for stridor Respiratory: Negative for cough or hemoptysis All other systems reviewed and are negative MENTAL STATUS EXAMINATION General Appearance and Behavior: Age appropriate, wearing appropriate clothes, good eye contact, anxious and cooperative Mood: "ok" Affect and affective range: congruent with stated mood Thought Process: Goal directed Thought Content: Not suicidal Speech: Normal volume, Regular rate and rhythm Suicidal Ideation: Denies Homicidal Ideation: Denies Hallucinations:Visual Delusions: Yes Impulse Control: normal Insight and Judgment: Limited Memory/Cognition: Limited Attention: Normal Orientation: Alert, oriented Assessment (1) Schizophrenia (2) (3) Current Visit: Yes Status: Acute Treatment Plan Patient admitted for inpatient psychiatric evaluation, medication adjustment and close monitoring The patient's behavior, mood, sleep and appetite will be closely monitored. Patient enrolled in individual and group therapeutic sessions and encouraged to attend. Patient provided with a safe and structured environment. Patient's physical health needs will be addressed by the Hospitalist. Hospitalist Consulted Labs including CBC, CMP, Lipid profile and Hemoglobin A1C levels ordered for baseline reference Social Assessment will be completed and the Child Care Giver will work with patient and family to ensure a suitable and safe disposition Medication adjustment will be made as clinically indicated Continue home meds Start Risperidone 1mg po BID Usual Wellness Religious/Preservation: - Start Trazodone 50 mg po QHS & 50 mg po QHS PRN between 10 PM & 2 AM for insomnia - Start Melatonin 5 mg po QHS to promote circadian rhythm The patient agreed on the treatment plan, understood the risk, benefit, alternative treatment, potential consequence of no treatment, and gave informed consent. Estimated days:5 Post hospital care: primary care provider, psychiatric provider Case staffed with Dr. Robertson Legal Status: Voluntary Reaction to Hospitalization: Accepting Medications and Allergies Medications and Allergies Allergies Allergy/AdvReac Type Severity Reaction Status Date / Time Penicillins Allergy Mild Unknown Verified 02/24/21 23:10 propoxyphene Allergy NAUSEA,VOMI Verified 02/24/21 23:10 TING Home Medications Medication Instructions Recorded Confirmed Last Taken Type hydroCHLOROthiazide [HCTZ] 25 mg PO QDAY 01/09/14 02/26/21 02/24/21 History Loratadine (Nf) [Claritin (Nf)] 10 mg PO QDAY 01/31/14 01/25/20 1 Day Ago History ~01/24/20 Montelukast [Singulair] 10 mg PO QHS #30 tablet 02/04/14 02/26/21 02/23/21 Rx Albuterol Sulfate [Ventolin HFA] 2 puff IH Q4H PRN 01/10/15 02/26/21 02/24/21 History Meclizine [Antivert] 50 mg PO BID 01/10/15 01/25/20 1 Day Ago History ~01/24/20 PARoxetine [Paxil] 20 mg PO DAILY 01/10/15 01/25/20 1 Day Ago History ~01/24/20 Ammonium Lactate/Emu Oil 1 tube PERCUTANEO BID 09/13/16 01/25/20 1 Day Ago History ~01/24/20 Fluticasone Propionate 1 spray INNOSTRIL DAILY 09/13/16 02/26/21 02/24/21 History Gabapentin 100 mg TID PRN 09/13/16 02/26/21 02/24/21 History lisinopriL [Zestril TAB] 20 mg PO QDAY 09/13/16 01/25/20 1 Day Ago History ~01/24/20 Divalproex [Holly Ceballos] 500 mg PO BID #1 tablet 09/14/16 01/25/20 1 Day Ago Rx ~01/24/20 Nortriptyline [Pamelor] 25 mg PO QDAY #1 capsule 09/14/16 01/25/20 1 Day Ago Rx ~01/24/20 risperiDONE [RisperDAL] 0.5 mg PO BID #1 tablet 09/14/16 01/25/20 1 Day Ago Rx ~01/24/20 Famotidine [Pepcid] 40 mg PO QHS #10 tablet 12/30/19 01/25/20 1 Day Ago Rx ~01/24/20 Aspirin [Adult Aspirin] 81 mg PO DAILY #30 tablet. 01/27/20 Unknown Rx Azithromycin [Zithromax Z-GAMA] 0 mg PO DAILY #6 tab 08/31/20 Unknown Rx Prednisone [predniSONE 10 mg 10 mg PO .TAPER #1 tab.ds.pk 08/31/20 Unknown Rx (6-Day Pack, 21 Tabs)] Nitrofurantoin [place]/M-Cryst 100 mg PO Q12HR 02/26/21 02/26/21 02/25/21 22:21 History [Macrobid CAP] Active Meds: Active Medications Aspirin (Aspirin Ec 81 Mg Tab) 81 mg PO DAILY [facility] Last Admin: 02/26/21 11:00 Dose: 81 mg Documented by: Cetirizine HCl (Cetirizine 10 Mg Tab) 10 mg PO DAILY [facility] Divalproex Sodium (Divalproex Dr 500 Mg Tab) 500 mg PO BID [facility] Last Admin: 02/26/21 21:56 Dose: 500 mg Documented by: Famotidine (Famotidine 20 Mg Tab) 40 mg PO QHS [facility] Last Admin: 02/26/21 21:56 Dose: 40 mg Documented by: Fluticasone Propionate (Fluticasone Propionate Nasal [place] 16 Gm) 50 mcg NS QDAY [facility] Last Admin: 02/26/21 11:02 Dose: 50 mcg Documented by: Lisinopril (Lisinopril 20 Mg Tab) 20 mg PO QDAY [facility] Last Admin: 02/26/21 11:00 Dose: 20 mg Documented by: Montelukast Sodium (Montelukast 10 Mg Tab) 10 mg PO QHS [facility] Last Admin: 02/26/21 21:56 Dose: 10 mg Documented by: Nitrofurantoin Macrocrystals (Nitrofurantoin Monohyd/M-Cryst 100 Mg Cap) 100 mg PO Q12HR [facility] Stop: 03/03/21 10:01 Last Admin: 02/26/21 21:56 Dose: 100 mg Documented by: Nortriptyline HCl (Nortriptyline 25 Mg Cap) 25 mg PO QDAY [facility] Last Admin: 02/26/21 11:00 Dose: 25 mg Documented by: Paroxetine HCl (Paroxetine 20 Mg Tab) 20 mg PO DAILY [facility] Last Admin: 02/26/21 11:01 Dose: 20 mg Documented by: Risperidone (Risperidone 0.25 Mg Tab) 0.5 mg PO BID [facility] Last Admin: 02/26/21 21:56 Dose: 0.5 mg Documented by: Results - Results Labs/Vitals: Laboratory Last Values Hemoglobin A1c 6.1 % (4-6) H 02/26/21 08:23 Triglycerides 84 mg/dL (2-149) 02/26/21 08:23 Cholesterol 153 mg/dL (50-199) 02/26/21 08:23 LDL Cholesterol Direct 80 mg/dL (50-130) 02/26/21 08:23 HDL Cholesterol 53 mg/dL (40-59) 02/26/21 08:23 Cholesterol/HDL Ratio 2.88 % 02/26/21 08:23 TSH 0.835 mlU/mL (0.270-4.200) 02/26/21 08:23 Hepatitis A IgM Ab Non-reactive (NonReactive) 02/26/21 08:23 Hep Bs Antigen Negative (Negative) 02/26/21 08:23 Hep B Core IgM Ab Non-reactive (NonReactive) 02/26/21 08:23 Hepatitis C Antibody Non-reactive (NonReactive) 02/26/21 08:23 Last Vital Signs Temp 99.5 F 02/26/21 20:07 Pulse 110 H 02/26/21 20:07 Resp 16 02/26/21 20:07 BP 113/77 02/26/21 20:07 Pulse Ox 92 02/26/21 20:07
[2021-02-27] MEDS: NORTRIPTYLINE 25 MG CAP PO SCH (09:53)
[2021-02-27] MEDS: CETIRIZINE 10 MG TAB PO SCH (09:53)
[2021-02-27] MEDS: LISINOPRIL 20 MG TAB PO SCH (09:53)
[2021-02-27] MEDS: DIVALPROEX DR 500 MG TAB PO SCH ×2 (09:53→21:01)
[2021-02-27] MEDS: NITROFURANTOIN MONOHYD/M-CRYST 100 MG CAP PO SCH ×2 (09:53→21:02)
[2021-02-27] MEDS: ASPIRIN EC 81 MG TAB PO SCH (09:53)
[2021-02-27] MEDS: risperiDONE 0.25 MG TAB PO SCH (09:53)
[2021-02-27] MEDS: PARoxetine 20 MG TAB PO SCH (09:53)
[2021-02-27] MEDS: FLUTICASONE PROPIONATE NASAL SPRAY 16 GM NS SCH (09:54)
[2021-02-27] MEDS ORDERED: NON-FORMULARY EACH (Loratadine (Nf) 10 MG Tablet) PO SCH (10:00)
[2021-02-27] MEDS: risperiDONE 1 MG TAB PO SCH ×2 (13:16→21:02)
[2021-02-27] MEDS: FAMOTIDINE 20 MG TAB PO SCH (21:01)
[2021-02-27] MEDS: MONTELUKAST 10 MG TAB PO SCH (21:02)
--- NOTE | 2021-02-28 08:19 | Progress Note ---
Subjective Date of service: 02/28/21 Subjective Comment: 02/27/21: The patient seen in the activity room socializing with peers. The patient continue to be paranoid stating " I feel like people are out to get me. " She is still having visual hallucination " seeing shadows and spiders. " The patient denies any current suicidal, homicidal ideation and denies auditory hallucinations. 02/28/21: The patient seen in the activity room today, she reports doing okay. She continues to be paranoid " my enemies are out to get me." She denies auditory hallucinations but continues to have visual hallucinations. No suicidal/homicidal ideation. REVIEW OF SYSTEMS Constitutional: Negative for weight loss ENT: Negative for stridor Respiratory: Negative for cough or hemoptysis All other systems reviewed and are negative MENTAL STATUS EXAMINATION General Appearance and Behavior: Age appropriate, wearing appropriate clothes, good eye contact, anxious and cooperative Mood: "ok" Affect and affective range: congruent with stated mood Thought Process: Goal directed Thought Content: Not suicidal Speech: Normal volume, Regular rate and rhythm Suicidal Ideation: Denies Homicidal Ideation: Denies Hallucinations:Visual Delusions: Yes Impulse Control: normal Insight and Judgment: Limited Memory/Cognition: Limited Attention: Normal Orientation: Alert, oriented Assessment (1) Schizophrenia (2) (3) Current Visit: Yes Status: Acute Treatment Plan Patient admitted for inpatient psychiatric evaluation, medication adjustment and close monitoring The patient's behavior, mood, sleep and appetite will be closely monitored. Patient enrolled in individual and group therapeutic sessions and encouraged to attend. Patient provided with a safe and structured environment. Patient's physical health needs will be addressed by the Hospitalist. Hospitalist Consulted Labs including CBC, CMP, Lipid profile and Hemoglobin A1C levels ordered for baseline reference Social Assessment will be completed and the Adult Care Manager will work with patient and family to ensure a suitable and safe disposition Medication adjustment will be made as clinically indicated Continue home meds Continue Risperidone 1mg po BID Start Depakote DR 500 mg po daily Start Depakote DR. 1000 mg po daily Usual Wellness Mu-Ism/Preservation: - Start Trazodone 50 mg po QHS & 50 mg po QHS PRN between 10 PM & 2 AM for insomnia - Start Melatonin 5 mg po QHS to promote circadian rhythm The patient agreed on the treatment plan, understood the risk, benefit, alternative treatment, potential consequence of no treatment, and gave informed consent. Estimated days:4 Post hospital care: primary care provider, psychiatric provider Case staffed with Dr. Robertson Legal Status: Voluntary Reaction to Hospitalization: Accepting Medications and Allergies Medications and Allergies Allergies Allergy/AdvReac Type Severity Reaction Status Date / Time Penicillins Allergy Mild Unknown Verified 02/24/21 23:10 propoxyphene Allergy NAUSEA,VOMI Verified 02/24/21 23:10 TING Home Medications Medication Instructions Recorded Confirmed Last Taken Type hydroCHLOROthiazide [HCTZ] 25 mg PO QDAY 01/09/14 02/26/21 02/24/21 History Loratadine (Nf) [Claritin (Nf)] 10 mg PO QDAY 01/31/14 01/25/20 1 Day Ago History ~01/24/20 Montelukast [Singulair] 10 mg PO QHS #30 tablet 02/04/14 02/26/21 02/23/21 Rx Albuterol Sulfate [Ventolin HFA] 2 puff IH Q4H PRN 01/10/15 02/26/21 02/24/21 History Meclizine [Antivert] 50 mg PO BID 01/10/15 01/25/20 1 Day Ago History ~01/24/20 PARoxetine [Paxil] 20 mg PO DAILY 01/10/15 01/25/20 1 Day Ago History ~01/24/20 Ammonium Lactate/Emu Oil 1 tube PERCUTANEO BID 09/13/16 01/25/20 1 Day Ago Hi story ~01/24/20 Fluticasone Propionate 1 spray INNOSTRIL DAILY 09/13/16 02/26/21 02/24/21 History Gabapentin 100 mg TID PRN 09/13/16 02/26/21 02/24/21 History lisinopriL [Zestril TAB] 20 mg PO QDAY 09/13/16 01/25/20 1 Day Ago History ~01/24/20 Divalproex [Holly Ceballos] 500 mg PO BID #1 tablet 09/14/16 01/25/20 1 Day Ago Rx ~01/24/20 Nortriptyline [Pamelor] 25 mg PO QDAY #1 capsule 09/14/16 01/25/20 1 Day Ago Rx ~01/24/20 risperiDONE [RisperDAL] 0.5 mg PO BID #1 tablet 09/14/16 01/25/20 1 Day Ago Rx ~01/24/20 Famotidine [Pepcid] 40 mg PO QHS #10 tablet 12/30/19 01/25/20 1 Day Ago Rx ~01/24/20 Aspirin [Adult Aspirin] 81 mg PO DAILY #30 tablet.dr 01/27/20 Unknown Rx Azithromycin [Zithromax Z-GAMA] 0 mg PO DAILY #6 tab 08/31/20 Unknown Rx Prednisone [predniSONE 10 mg 10 mg PO .TAPER #1 tab.ds.pk 08/31/20 Unknown Rx (6-Day Pack, 21 Tabs)] Nitrofurantoin [place]/M-Cryst 100 mg PO Q12HR 02/26/21 02/26/21 02/25/21 22:21 History [Macrobid CAP] Active Meds: Active Medications Aspirin (Aspirin Ec 81 Mg Tab) 81 mg PO DAILY [facility] Last Admin: 02/27/21 09:53 Dose: 81 mg Documented by: Cetirizine HCl (Cetirizine 10 Mg Tab) 10 mg PO DAILY [facility] Last Admin: 02/27/21 09:53 Dose: 10 mg Documented by: Divalproex Sodium (Divalproex Dr 500 Mg Tab) 500 mg PO BID [facility] Last Admin: 02/27/21 21:01 Dose: Not Given Documented by: Famotidine (Famotidine 20 Mg Tab) 40 mg PO QHS [facility] Last Admin: 02/27/21 21:01 Dose: 40 mg Documented by: Fluticasone Propionate (Fluticasone Propionate Nasal [place] 16 Gm) 50 mcg NS QDAY [facility] Last Admin: 02/27/21 09:54 Dose: 50 mcg Documented by: Lisinopril (Lisinopril 20 Mg Tab) 20 mg PO QDAY [facility] Last Admin: 02/27/21 09:53 Dose: 20 mg Documented by: Montelukast Sodium (Montelukast 10 Mg Tab) 10 mg PO QHS [facility] Last Admin: 02/27/21 21:02 Dose: 10 mg Documented by: Nitrofurantoin Macrocrystals (Nitrofurantoin Monohyd/M-Cryst 100 Mg Cap) 100 mg PO Q12HR [facility] Stop: 03/03/21 10:01 Last Admin: 02/27/21 21:02 Dose: 100 mg Documented by: Nortriptyline HCl (Nortriptyline 25 Mg Cap) 25 mg PO QDAY [facility] Last Admin: 02/27/21 09:53 Dose: 25 mg Documented by: Paroxetine HCl (Paroxetine 20 Mg Tab) 20 mg PO DAILY [facility] Last Admin: 02/27/21 09:53 Dose: 20 mg Documented by: Risperidone (Risperidone 1 Mg Tab) 1 mg PO BID [facility] Last Admin: 02/27/21 21:02 Dose: Not Given Documented by: Results - Results Labs/Vitals: Laboratory Last Values Hemoglobin A1c 6.1 % (4-6) H 02/26/21 08:23 Triglycerides 84 mg/dL (2-149) 02/26/21 08:23 Cholesterol 153 mg/dL (50-199) 02/26/21 08:23 LDL Cholesterol Direct 80 mg/dL (50-130) 02/26/21 08:23 HDL Cholesterol 53 mg/dL (40-59) 02/26/21 08:23 Cholesterol/HDL Ratio 2.88 % 02/26/21 08:23 TSH 0.835 mlU/mL (0.270-4.200) 02/26/21 08:23 Hepatitis A IgM Ab Non-reactive (NonReactive) 02/26/21 08:23 Hep Bs Antigen Negative (Negative) 02/26/21 08:23 Hep B Core IgM Ab Non-reactive (NonReactive) 02/26/21 08:23 Hepatitis C Antibody Non-reactive (NonReactive) 02/26/21 08:23 Last Vital Signs Temp 99.3 F 02/27/21 21:06 Pulse 107 H 02/27/21 20:54 Resp 16 02/27/21 19:57 BP 90/60 02/27/21 20:54 Pulse Ox 97 02/27/21 20:54
[2021-02-28 09:22] LABS: Basophils % (Auto) 0.5 % (0.0-1.8); Eosinophils # (Auto) 0.1 K/mm3 (0.0-0.4); Eosinophils % (Auto) 1.2 % (0.0-4.3); Hematocrit 34.5 % (30.3-42.9); Hemoglobin 11.2 gm/dl (10.1-14.3); Lymphocytes # (Auto) 1.6 K/mm3 (1.2-5.4); Mean Corpuscular HGB Conc 33 % (30-34); Mean Corpuscular Volume 78 fl (79-97); Monocytes # (Auto) 0.8 K/mm3 (0.0-0.8); Platelet Count 242 K/mm3 (140-440); Red Blood Count 4.43 M/mm3 (3.65-5.03); Red Cell Distribution Width 16.1 % (13.2-15.2)
[2021-02-28] MEDS: ASPIRIN EC 81 MG TAB PO SCH (09:44)
[2021-02-28] MEDS: LISINOPRIL 20 MG TAB PO SCH (09:44)
[2021-02-28] MEDS: FLUTICASONE PROPIONATE NASAL SPRAY 16 GM NS SCH (09:44)
[2021-02-28] MEDS: CETIRIZINE 10 MG TAB PO SCH (09:45)
[2021-02-28] MEDS: PARoxetine 20 MG TAB PO SCH (09:45)
[2021-02-28] MEDS: NITROFURANTOIN MONOHYD/M-CRYST 100 MG CAP PO SCH ×2 (09:45→21:38)
[2021-02-28] MEDS: risperiDONE 1 MG TAB PO SCH ×2 (09:45→21:39)
[2021-02-28] MEDS: NORTRIPTYLINE 25 MG CAP PO SCH (09:45)
[2021-02-28 09:50] LABS: Alanine Aminotransferase 17 units/L (7-56); Albumin 3.8 g/dL (3.9-5); BUN/Creatinine Ratio 17; Blood Urea Nitrogen 17 mg/dL (7-17); Hemolysis Index 0
[2021-02-28] MEDS: DIVALPROEX DR 500 MG TAB PO SCH (09:51)
--- NOTE | 2021-02-28 10:44 | Electrocardiograph Report ---
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
--- NOTE | 2021-02-28 18:33 | Progress Note ---
Assessment and Plan Assessment and plan: Assessment: Exacerbation of symptoms of schizophrenia Worsening of depression with history of bipolar disorder with dysthymia/dysphoria History of hypertension, BP currently on low side and appears dehydrated Recommendations: Hold lisinopril for now Normal saline 1 L bolus Continue monitor BP and pulse rate daily We will follow Discussed with the nursing staff History Interval history: Patient is seen in follow-up. Currently her BP is running on low side. No reported syncopal episodes. Hospitalist Physical - Constitutional Vitals: Temp Pulse Resp BP Pulse Ox 99.3 F 99 H 16 106/68 97 02/27/21 21:06 02/28/21 09:44 02/27/21 19:57 02/28/21 09:44 02/27/21 20:54 General appearance: Present: no acute distress, other (Sluggish, depressed but awake and fairly alert) - EENT Eyes: Present: PERRL, EOM intact ENT: clear oral mucosa - Neck Neck: Present: supple - Respiratory Respiratory effort: normal Respiratory: bilateral: CTA - Cardiovascular Rhythm: regular - Extremities Extremities: No edema - Abdominal General gastrointestinal: soft, non-tender, normal bowel sounds - Integumentary Integumentary: Absent: rash Results - Labs CBC & Chem 7: 02/28/21 09:06 02/28/21 09:06 Labs: Laboratory Last Values WBC 6.3 K/mm3 (4.5-11.0) 02/28/21 09:06 RBC 4.43 M/mm3 (3.65-5.03) 02/28/21 09:06 Hgb 11.2 gm/dl (10.1-14.3) 02/28/21 09:06 Hct 34.5 % (30.3-42.9) 02/28/21 09:06 MCV 78 fl (79-97) L 02/28/21 09:06 MCH 25 pg (28-32) L 02/28/21 09:06 MCHC 33 % (30-34) 02/28/21 09:06 RDW 16.1 % (13.2-15.2) H 02/28/21 09:06 Plt Count 242 K/mm3 (140-440) 02/28/21 09:06 Lymph % (Auto) 25.0 % (13.4-35.0) 02/28/21 09:06 [place] % (Auto) 13.0 % (0.0-7.3) H 02/28/21 09:06 Eos % (Auto) 1.2 % (0.0-4.3) 02/28/21 09:06 Baso % (Auto) 0.5 % (0.0-1.8) 02/28/21 09:06 Lymph # (Auto) 1.6 K/mm3 (1.2-5.4) 02/28/21 09:06 [place] # (Auto) 0.8 K/mm3 (0.0-0.8) 02/28/21 09:06 Eos # (Auto) 0.1 K/mm3 (0.0-0.4) 02/28/21 09:06 Baso # (Auto) 0.0 K/mm3 (0.0-0.1) 02/28/21 09:06 Seg Neutrophils % 60.3 % (40.0-70.0) 02/28/21 09:06 Seg Neutrophils # 3.8 K/mm3 (1.8-7.7) 02/28/21 09:06 Sodium 141 mmol/L (137-145) 02/28/21 09:06 Potassium 3.1 mmol/L (3.6-5.0) L 02/28/21 09:06 Chloride 99.0 mmol/L (98-107) 02/28/21 09:06 Carbon Dioxide 26 mmol/L (22-30) 02/28/21 09:06 Anion Gap 19 mmol/L 02/28/21 09:06 BUN 17 mg/dL (7-17) 02/28/21 09:06 Creatinine 1.0 mg/dL (0.6-1.2) 02/28/21 09:06 Estimated GFR > 60 ml/min 02/28/21 09:06 BUN/Creatinine Ratio 17 % 02/28/21 09:06 Glucose 95 mg/dL (65-100) 02/28/21 09:06 Hemoglobin A1c 6.1 % (4-6) H 02/26/21 08:23 Calcium 9.0 mg/dL (8.4-10.2) 02/28/21 09:06 Total Bilirubin 0.20 mg/dL (0.1-1.2) 02/28/21 09:06 AST 18 units/L (5-40) 02/28/21 09:06 ALT 17 units/L (7-56) 02/28/21 09:06 Alkaline Phosphatase 102 units/L (35-129) 02/28/21 09:06 Total Protein 7.2 g/dL (6.3-8.2) 02/28/21 09:06 Albumin 3.8 g/dL (3.9-5) L 02/28/21 09:06 Albumin/Globulin Ratio 1.1 % 02/28/21 09:06 Triglycerides 84 mg/dL (2-149) 02/26/21 08:23 Cholesterol 153 mg/dL (50-199) 02/26/21 08:23 LDL Cholesterol Direct 80 mg/dL (50-130) 02/26/21 08:23 HDL Cholesterol 53 mg/dL (40-59) 02/26/21 08:23 Cholesterol/HDL Ratio 2.88 % 02/26/21 08:23 TSH 0.835 mlU/mL (0.270-4.200) 02/26/21 08:23 Free T4 0.82 ng/dL (0.76-1.46) 02/28/21 09:06 Hepatitis A IgM Ab Non-reactive (NonReactive) 02/26/21 08:23 Hep Bs Antigen Negative (Negative) 02/26/21 08:23 Hep B Core IgM Ab Non-reactive (NonReactive) 02/26/21 08:23 Hepatitis C Antibody Non-reactive (NonReactive) 02/26/21 08:23 [place]/IV: Voiding Method Toilet Active Medications - Current Medications Current Medications: Generic Name Dose Route Start Last Admin Trade Name Freq PRN Reason Stop Dose Admin Aspirin 81 mg 02/26/21 10:00 02/28/21 09:44 Aspirin Ec 81 Mg Tab PO 81 mg DAILY WALE Administration Cetirizine HCl 10 mg 02/27/21 10:00 02/28/21 09:45 Cetirizine 10 Mg Tab PO 10 mg DAILY WALE Administration Divalproex Sodium 500 mg 02/28/21 22:[address] 500 Mg Tab PO QHS WALE Divalproex Sodium 500 mg 02/28/21 10:00 02/28/21 09:[address] 500 Mg Tab PO 500 mg DAILY WALE Administration Famotidine 40 mg 02/26/21 22:00 02/27/21 21:01 Famotidine 20 Mg Tab PO 40 mg QHS WALE Administration Fluticasone Propionate 50 mcg 02/26/21 10:00 02/28/21 09:44 Fluticasone Propionate Nasal [place] 16 Gm NS 50 mcg QDAY WALE Administration Montelukast Sodium 10 mg 02/26/21 22:00 02/27/21 21:02 Montelukast 10 Mg Tab PO 10 mg QHS WALE Administration Nitrofurantoin Macrocrystals 100 mg 02/26/21 10:00 02/28/21 09:45 Nitrofurantoin Monohyd/M-Cryst 100 Mg Cap PO 03/03/21 10:01 100 mg Q12HR WALE Administration Nortriptyline HCl 25 mg 02/26/21 10:00 02/28/21 09:45 Nortriptyline 25 Mg Cap PO 25 mg QDAY WALE Administration Paroxetine HCl 20 mg 02/26/21 10:00 02/28/21 09:45 Paroxetine 20 Mg Tab PO 20 mg DAILY WALE Administration Potassium Chloride 40 meq 02/28/21 18:36 02/28/21 18:14 Potassium Chloride Er 20 Meq Tab PO 02/28/21 18:37 40 meq ONCE ONE Administration Risperidone 1 mg 02/27/21 10:00 02/28/21 09:45 Risperidone 1 Mg Tab PO 1 mg BID WALE Administration
[2021-02-28] MEDS ORDERED: POTASSIUM CHLORIDE ER 20 MEQ TAB PO ONE (18:36)
[2021-02-28] MEDS ORDERED: SODIUM CHLORIDE 0.9% 1000 ML 1,000 ML IV ONE (18:38)
[2021-02-28] MEDS: FAMOTIDINE 20 MG TAB PO SCH (21:38)
[2021-02-28] MEDS: MONTELUKAST 10 MG TAB PO SCH (21:39)
[2021-02-28] MEDS ORDERED: DIVALPROEX DR 500 MG TAB PO SCH (22:00)
[2021-03-01 00:25] VITALS: BP 104/72
[2021-03-01] MEDS: ASPIRIN EC 81 MG TAB PO SCH (10:04)
[2021-03-01] MEDS: NITROFURANTOIN MONOHYD/M-CRYST 100 MG CAP PO SCH (10:04)
[2021-03-01] MEDS: CETIRIZINE 10 MG TAB PO SCH (10:04)
[2021-03-01] MEDS: DIVALPROEX DR 500 MG TAB PO SCH (10:04)
[2021-03-01] MEDS: PARoxetine 20 MG TAB PO SCH (10:04)
[2021-03-01] MEDS: NORTRIPTYLINE 25 MG CAP PO SCH (10:05)
[2021-03-01] MEDS: FLUTICASONE PROPIONATE NASAL SPRAY 16 GM NS SCH (10:06)
--- NOTE | 2021-03-01 11:44 | Discharge Summary ---
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 The patient's mood, cognition, behavior, moral support are improved and stabilized. St the time of discharge, the patient had no endangering behavior and no debilitating adverse effects. The patient agreed on potential consequences of no treatment and gave informed consent. 03/02 The patient is calm and cooperative. She is polite. She denies SI/HI. She says she lives with her and is asking about going home. She says last night she heard voices telling her that she's not going home today. She says she feels much better today. She is stable for discharge. Disposition: HOME / SELF CARE / HOMELESS Time spent for discharge: 35 Allergies/Adverse Reactions: Allergies Penicillins Allergy (Mild, Verified 02/24/21 23:10) Unknown propoxyphene Allergy (Verified 02/24/21 23:10) NAUSEA,VOMITING Vital Signs: Last Vital Signs Temp 98.9 F 02/28/21 20:17 Pulse 104 H 02/28/21 20:17 Resp 18 02/28/21 20:17 BP 104/72 02/28/21 20:17 Pulse Ox 98 02/28/21 20:17 Last Lab: Laboratory Last Values WBC 6.3 K/mm3 (4.5-11.0) 02/28/21 09:06 RBC 4.43 M/mm3 (3.65-5.03) 02/28/21 09:06 Hgb 11.2 gm/dl (10.1-14.3) 02/28/21 09:06 Hct 34.5 % (30.3-42.9) 02/28/21 09:06 MCV 78 fl (79-97) L 02/28/21 09:06 MCH 25 pg (28-32) L 02/28/21 09:06 MCHC 33 % (30-34) 02/28/21 09:06 RDW 16.1 % (13.2-15.2) H 02/28/21 09:06 Plt Count 242 K/mm3 (140-440) 02/28/21 09:06 Lymph % (Auto) 25.0 % (13.4-35.0) 02/28/21 09:06 [place] % (Auto) 13.0 % (0.0-7.3) H 02/28/21 09:06 Eos % (Auto) 1.2 % (0.0-4.3) 02/28/21 09:06 Baso % (Auto) 0.5 % (0.0-1.8) 02/28/21 09:06 Lymph # (Auto) 1.6 K/mm3 (1.2-5.4) 02/28/21 09:06 [place] # (Auto) 0.8 K/mm3 (0.0-0.8) 02/28/21 09:06 Eos # (Auto) 0.1 K/mm3 (0.0-0.4) 02/28/21 09:06 Baso # (Auto) 0.0 K/mm3 (0.0-0.1) 02/28/21 09:06 Seg Neutrophils % 60.3 % (40.0-70.0) 02/28/21 09:06 Seg Neutrophils # 3.8 K/mm3 (1.8-7.7) 02/28/21 09:06 Sodium 141 mmol/L (137-145) 02/28/21 09:06 Potassium 3.1 mmol/L (3.6-5.0) L 02/28/21 09:06 Chloride 99.0 mmol/L (98-107) 02/28/21 09:06 Carbon Dioxide 26 mmol/L (22-30) 02/28/21 09:06 Anion Gap 19 mmol/L 02/28/21 09:06 BUN 17 mg/dL (7-17) 02/28/21 09:06 Creatinine 1.0 mg/dL (0.6-1.2) 02/28/21 09:06 Estimated GFR > 60 ml/min 02/28/21 09:06 BUN/Creatinine Ratio 17 % 02/28/21 09:06 Glucose 95 mg/dL (65-100) 02/28/21 09:06 Hemoglobin A1c 6.1 % (4-6) H 02/26/21 08:23 Calcium 9.0 mg/dL (8.4-10.2) 02/28/21 09:06 Total Bilirubin 0.20 mg/dL (0.1-1.2) 02/28/21 09:06 AST 18 units/L (5-40) 02/28/21 09:06 ALT 17 units/L (7-56) 02/28/21 09:06 Alkaline Phosphatase 102 units/L (35-129) 02/28/21 09:06 Total Protein 7.2 g/dL (6.3-8.2) 02/28/21 09:06 Albumin 3.8 g/dL (3.9-5) L 02/28/21 09:06 Albumin/Globulin Ratio 1.1 % 02/28/21 09:06 Triglycerides 84 mg/dL (2-149) 02/26/21 08:23 Cholesterol 153 mg/dL (50-199) 02/26/21 08:23 LDL Cholesterol Direct 80 mg/dL (50-130) 02/26/21 08:23 HDL Cholesterol 53 mg/dL (40-59) 02/26/21 08:23 Cholesterol/HDL Ratio 2.88 % 02/26/21 08:23 TSH 0.835 mlU/mL (0.270-4.200) 02/26/21 08:23 Free T4 0.82 ng/dL (0.76-1.46) 02/28/21 09:06 Hepatitis A IgM Ab Non-reactive (NonReactive) 02/26/21 08:23 Hep Bs Antigen Negative (Negative) 02/26/21 08:23 Hep B Core IgM Ab Non-reactive (NonReactive) 02/26/21 08:23 Hepatitis C Antibody Non-reactive (NonReactive) 02/26/21 08:23 Core Measure Documentation - Palliative Care Palliative Care/ Comfort Measures: Not Applicable - Core Measures Any of the following diagnoses?: none Exam - Constitutional Vitals: Temp Pulse Resp BP Pulse Ox 98.9 F 104 H 18 104/72 98 02/28/21 20:17 02/28/21 20:17 02/28/21 20:17 02/28/21 20:17 02/28/21 20:17 General appearance: Present: no acute distress - EENT Eyes: Present: PERRL, EOM intact ENT: hearing intact, clear oral mucosa - Neck Neck: Present: supple, normal ROM - Respiratory Respiratory effort: normal Plan Activity: advance as tolerated Weight Bearing Status: Weight Bear as Tolerated Care Plan Goals: Maintain good and stable mental health Plan of Treatment: The patient should be compliant with medications, not to use drugs, and not to drink alcohol. The patient understands that if suicidal ideas, homicidal ideas or any endangering feeling arise, the patient should seek assistance including, but not limited to crisis hotline, and emergency room. Assessment: Psychosis Follow up with: PRIMARY CARE, [Primary Care Provider] - 7 Days Prescriptions: Divalproex [Holly Ceballos] 500 mg PO BID #60 tablet risperiDONE [RisperDAL] 1 mg PO BID #60 tablet
== END 2021-03-01 13:30 | disposition home or self-care (01) | DRG 885 ==
LOC: UNDOADMIN 15:30 → 3A 15:30 → 5A 02-26 01:32
PROVIDERS: ADMIT Psychiatry & Neurology Psychiatry; ATTEND Psychiatry & Neurology Psychiatry
DX: F20.9 Schizophrenia, unspecified (principal); F41.9 Anxiety disorder, unspecified; I10 Essential (primary) hypertension; Z20.822 Contact with and (suspected) exposure to COVID-19
CPT/HCPCS: 36415; 80053; 80061; 80074; 83036; 84439; 84443; 85025; 93005; G0378; Q9967